=== PATIENT | female | born 1960 | race Hispanic/Latino ===

== ENCOUNTER 2018-09-12 14:03 | Inpatient (IN) | payer BC, OTHER ==
--- OUTSIDE RECORDS SUMMARY | 2018-09-12 14:32 | XMS REPORT | Continuity of Care Document ---
:1960 Author Organization [employer] Care Team Providers Name Role Phone [employer] Unavailable Unavailable Problems Problem Status Onset Classification Date Comments Source Date Reported DYSPAREUNIA Active 03/27/19 Condition 04/09/2013 Medical 14 Group ROUTINE Inactive 10/26/19 Condition 04/09/2013 Medical GYNECOLOGICAL 13 Group EXAMINATION SCREENING, COLON Inactive 10/26/19 Condition 04/09/2013 Medical CANCER 13 Group OTHER SCREENING Inactive 10/26/19 Condition 04/09/2013 Medical MAMMOGRAM 13 Group PHYSICAL Inactive 10/26/19 Condition 04/09/2013 Medical EXAMINATION 13 Group PSORIASIS Active 02/06/20 Condition 04/09/2013 Medical 12 Group VITAMIN D Active Condition 04/09/2013 Medical DEFICIENCY Group DIABETES Active Condition 04/09/2013 Medical MELLITUS, TYPE I, Group ADULT ONSET ESSENTIAL Active Condition 04/09/2013 Medical HYPERTENSION Group URINARY TRACT Active Condition 04/09/2013 Medical INFECTION Group Medications Medication Details Route Status Patient Ordering Order Source Instructions Provider Date CIPRO 500 MG Take one Active TABS (1) by 014 Medical mouth twice Group a day FLAGYL 250 MG Take 1 No Longer MH TABS tablet po Active 013 Medical TID with Group food for 7 days BETAMETHASONE Apply to Active DIPROPIONATE affected 013 Medical 0.05 % OINT area BID Group prn OXYBUTYNIN 1 tablet po Active CHLORIDE ER 10 q day 012 Medical MG [id number] Group VITAMIN D3 31427 Take 1 Active MH UNIT CAPS capsule po 012 Medical q wk Group CIPRO 500 MG Take 1 No Longer MH TABS tablet po Active 012 Medical BID. Group MACROBID 100 MG one by No Longer MH CAPS mouth twice Active 012 Medical daily with Group food for 7 days VITAMIN D2 one by No Longer 50,000 CAPSULES mouth Active 012 Medical weekly Group METFORMIN HCL 1 tablet po Active 500 MG TABS BID Medical Group LISINOPRIL-HYDRO 1 tablet po Active CHLOROTHIAZIDE q day Medical 10-12.5 MG TABS Group Allergies, Adverse Reactions, Alerts Substance Category Reaction Severity Reaction Status Date Comments Source type Reported PENICILLINS Drug PENICILLINS allergy Medical Group Immunizations Immunization Date Given Site Status Last Updated Comments Source dT (Diphtheria 11/10/2011 completed Medical and Tetanus) Group booster given dT (Diphtheria 10/31/2011 completed Medical and Tetanus) Group booster given Results Order Name Results Value Reference Date Interpretation Comments Source Range Chemistry CHOLESTEROL 169 125 - 200 11/05 Medical Group Chemistry HDL 55 >=46 11/05 Medical Group Chemistry TRIGLYCERIDE 89 - 150 11/05 Medical Group Chemistry LDL 96 MG/DL - 130 11/05 (CALC) /2012 Medical Group Chemistry BUN 12 7 - 25 11/05 Medical Group Chemistry CREATININE 0.56 0.50 - 11/05 1.05 Medical Group Chemistry BUN/CREAT NOT 6 - 22 11/05 Medical (calc) Group Chemistry SODIUM 141 135 - 146 11/05 Medical Group Chemistry POTASSIUM 4.4 3.5 - 5.3 11/05 Medical Group Chemistry CALCIUM 9.1 8.6 - 10.4 11/05 Medical Group Chemistry ALBUMIN 4.2 3.6 - 5.1 11/05 Medical Group Chemistry ALK PHOS 57 33 - 130 11/05 Medical Group Chemistry SGOT (AST) 16 10 - 35 11/05 Medical Group Chemistry SGPT (ALT) 16 6 - 29 11/05 Medical Group Chemistry HGBA1C 5.6 % OF - 5.7 11/05 TOTAL HGB /2012 Medical Group Chemistry TSH 1.09 11/05 Medical Group Chemistry T4, FREE 1.2 0.8 - 1.8 11/05 Medical Group Hematology HGB 13.9 11.7 - 11/05 15.5 /2012 Medical Group Hematology HCT 41.8 35.0 - 11/05 45.0 /2012 Medical Group Hematology PLATELETS 225 140 - 400 11/05 THOUSAND/UL /2012 Medical Group Urinalysis MICROALB URN 11 11/05 Medical Group Urinalysis UA COLOR DARK YELLOW 11/05 Medical [facility] Urinalysis EPI CELL UR 0-5 - 5 11/05 Medical [facility] Urinalysis BACTERIA URN MANY 11/05 Medical [facility] Urinalysis URINE ROSS MODERATE 11/05 Medical [facility] 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 CLINICAL INDICATION: 625.0 DYSPAREUNIA Comparison Examination: None TECHNIQUE: A real-time transabdominal and transvaginal sonographic evaluation of the pelvis was performed. The ovaries and adnexa were not well seen on the transabdominal study and transvaginal assessment was therefore warranted. FINDINGS: The transabdominal images reveal a normal bladder. The uterus is absent. The ovaries are not visualized. There are no masses or fluid collections identified within the pelvis. There are no adnexal lesions. No free fluid is identified. IMPRESSION: Post hysterectomy. Ovaries not visualized and likely surgically absent. No adnexal masses or free fluid. Consultation Notes No Data Provided for This Section Discharge Summaries No Data Provided for This Section History and Physicals No Data Provided for This Section Vital Signs Vital Sign Value Date Comments Source Temperature Oral (F) 96.1 F 03/27/2013 Medical Group Weight 218 03/27/2013 Medical Group Respitory Rate 16 03/27/2013 Medical Group Heart Rate 68 03/27/2013 Medical Group Systolic (mm Hg) 119 03/27/2013 Medical Group Diastolic (mm Hg) 57 03/27/2013 Medical Group Respitory Rate 12 10/25/2012 Medical Group Weight 219 10/25/2012 Medical Group Height 63 10/25/2012 Medical Group Heart Rate 68 10/25/2012 Medical Group Systolic (mm Hg) 119 10/25/2012 Medical Group Diastolic (mm Hg) 85 10/25/2012 Medical Group Temperature Oral (F) 95.7 F 10/25/2012 Medical Group Encounters Location Location Encounter Encounter Reason Attending ADM DC Status Source Details Type Number For Provider Date Date Visit [facility] [id number] Ashley 03/27 03/27 Ciaran Visit 000 MD [place]j /2013 Medical Medical [facility] Lab Report [id number] Ashley 03/27 03/27 Ciaran Sole MD Nj /2013 Medical Medical [facility] Lab Report [id number] Ashley 04/01 04/01 Ciaran Ember MD Nj /2013 Medical Medical [facility] Lab Report [id number] Ashley 04/02 04/02 Ciaran Sole MD Nj /2013 Medical [facility] Lab Report [id number] Ashley 04/03 04/03 Ciaran Mauro MD /2013 Medical [facility] Lab Report [id number] Ashley 04/04 04/04 Ciaran Mauro MD /2013 Medical Medical [facility] Lab Report [id number] Ashley 04/07 04/07 Ciaran 960 MD Nj /2013 Medical Medical [facility] Lab Report [id number] Ashley 04/08 04/08 Ciaran Mauro MD Medical [facility] Lab Report [id number] Ashley 04/09 04/09 Ciaran Mauro MD /2013 Medical [facility] Procedures Procedure Code Date Perfomer Comments Source mammogram 78623 11/11/2012 Completed at [facility] mammogram 67018 11/10/2011 Completed at [facility] vaginal Pap smear 31695 10/31/2011 Done Medical results Group Assessment and Plan No Data Provided for This Section Plan of Care No Data Provided for This Section Social History No Data Provided for This Section Family History No Data Provided for This Section Advance Directives No Data Provided for This Section Functional Status No Data Provided for This Section
--- OUTSIDE RECORDS SUMMARY | 2018-09-12 14:32 | XMS REPORT | Continuity of Care Document ---
:1960 Author Organization [facility] Care Team Providers Name Role Phone MD Mauro Lillian Unavailable Unavailable Insurance Providers Payer name Policy type / Policy ID Covered alliance party ID Policy Pruitt Coverage type [facility] [employer] [facility] Encounters Encounter Performer Location Date Office Visit Ashley Mauro MD [facility] [place] Mar 27, 2013 Family Practice Allergies, Adverse Reactions, Alerts Type Substance Reaction Status Drug allergy PENICILLINS Active Problems Problem Effective Dates Problem Status VITAMIN D DEFICIENCY Active PSORIASIS Feb 06, 2012 Active DIABETES MELLITUS, TYPE I, ADULT ONSET Active ESSENTIAL HYPERTENSION Active URINARY TRACT INFECTION Active ROUTINE GYNECOLOGICAL EXAMINATION Oct 25, 2012 Inactive SCREENING, COLON CANCER Oct 25, 2012 Inactive OTHER SCREENING MAMMOGRAM Oct 25, 2012 Inactive PHYSICAL EXAMINATION Oct 25, 2012 Inactive DYSPAREUNIA Mar 27, 2013 Active Procedures Date Description Comments Nov 10, 2011 mammogram Completed at [facility] Oct 31, 2011 vaginal Pap smear results Done Oct 25, 2012 smoking status never smoker Nov 11, 2012 mammogram Completed at [facility] Medications Medication Instructions Start Date Status VITAMIN D3 07210 UNIT CAPS Take 1 capsule po q wk Jan 01, 2012 Active METFORMIN HCL 500 MG TABS 1 tablet po BID Active OXYBUTYNIN CHLORIDE ER 10 MG 1 tablet po q day Jan 17, 2012 Active [id number] LISINOPRIL-HYDROCHLOROTHIAZIDE 1 tablet po q day Active 10-12.5 MG TABS MACROBID 100 MG CAPS one by mouth twice daily with Oct 31, 2011 Inactive food for 7 days VITAMIN D2 50,000 CAPSULES one by mouth weekly Jun 15, 2011 Inactive CIPRO 500 MG TABS Take 1 tablet po BID. Nov 15, 2011 Inactive BETAMETHASONE DIPROPIONATE 0.05 Apply to affected area BID prn Oct 25, 2012 Active % OINT FLAGYL 250 MG TABS Take 1 tablet po TID with food Oct 28, 2012 Inactive for 7 days CIPRO 500 MG TABS Take one (1) by mouth twice a Mar 27, 2013 Active day Immunizations Vaccine Date Status dT (Diphtheria and Tetanus) booster given Nov 10, 2011 completed dT (Diphtheria and Tetanus) booster given Oct 31, 2011 completed Vital Signs Date Description Test Result Oct 25, 2012 respiratory rate E&M - 9279-1 RESP RATE 12 /min Oct 25, 2012 weight E&M - 3141-9 WEIGHT 219 lb Oct 25, 2012 height E&M - 8302-2 HEIGHT 63 in Oct 25, 2012 pulse rate E&M - 8867-4 PULSE RATE 68 /min Oct 25, 2012 blood pressure, systolic - 8480-6 BP SYSTOLIC 119 mm Hg Oct 25, 2012 blood pressure, diastolic - 8462-4 BP DIASTOLIC 85 mm Hg Oct 25, 2012 temperature E&M TEMPERATURE 95.7 deg f Mar 27, 2013 temperature E&M TEMPERATURE 96.1 deg f Mar 27, 2013 weight E&M - 3141-9 WEIGHT 218 lb Mar 27, 2013 respiratory rate E&M - 9279-1 RESP RATE 16 /min Mar 27, 2013 pulse rate E&M - 8867-4 PULSE RATE 68 /min Mar 27, 2013 blood pressure, systolic - 8480-6 BP SYSTOLIC 119 mm Hg Mar 27, 2013 blood pressure, diastolic - 8462-4 BP DIASTOLIC 57 mm Hg Results Date Description Test Name Value Reference Interpretation Status Nov 04, hemoglobin, blood HGB 13.9 g/dL 11.7-15.5 Normal 2012Nov 04, hematocrit, blood HCT 41.8 % 35.0-45.0 Normal 2012Nov 04, platelet count PLATELETS 225 140-400 Normal 2012 THOUSAND/UL /mm3 Nov 04, cholesterol, serum CHOLESTEROL 169 mg/dl 125-200 Normal 2012Nov 04, HDL cholesterol, HDL 55 mg/dl > OR=46 Normal 2012 serum Nov 04, triglyceride, TRIGLYCERIDE 89 mg/dl <150 Normal 2012 serum, fasting Nov 04, LDL cholesterol, LDL 96 MG/DL <130 Normal 2012 serum (CALC) mg/dl Nov 04, urea nitrogen, BUN 12 mg/dL 7-25 Normal 2012 blood Nov 04, creatinine, serum CREATININE 0.56 mg/dL 0.50-1.05 Normal 2012Nov 04, urea BUN/CREAT NOT 6-22 2012 nitrogen/creatinine APPLICABLE ratio, serum (calc) null Nov 04, sodium, serum SODIUM 141 mmol/L 135-146 Normal 2012Nov 04, potassium, serum POTASSIUM 4.4 mmol/L 3.5-5.3 Normal 2012Nov 04, calcium, serum CALCIUM 9.1 mg/dL 8.6-10.4 Normal 2012Nov 04, albumin, serum ALBUMIN 4.2 g/dL 3.6-5.1 Normal 2012Nov 04, alkaline ALK PHOS 57 U/L 33-130 Normal 2012 phosphatase, serum Nov 04, aspartate SGOT (AST) 16 U/L 10-35 Normal 2012 aminotransferase (SGOT), serum Nov 04, alanine SGPT (ALT) 16 U/L 6-29 Normal 2012 aminotransferase (SGPT), serum Nov 04, hemoglobin A1C, HGBA1C 5.6 % OF <5.7 Normal 2012 blood, as % of TOTAL HGB % total hemoglobin Nov 04, thyroid stimulating TSH 1.09 uIU/mL Normal 2012 hormone, serum Nov 04, thyroxine, serum, T4, FREE 1.2 ng/dl 0.8-1.8 Normal 2012 free Nov 04, microalbumin/total MICROALB URN 11 mg/l Units Normal 2012 urine volume converted. See lab report for original value. Nov 04, urine color UA COLOR DARK YELLOW YELLOW Normal 2012 null Nov 04, epithelial cells, EPI CELL UR 0-5 /lpf < OR=5 2012 urine Nov 04, bacteria, urine BACTERIA URN MANY null NONE SEEN Abnormal 2012 microscopy Nov 04, urine crystals, URINE ROSS MODERATE /HPF NONE OR FEW Abnormal 2012 microscopic null Oct 30, vaginal Pap smear PAP SMEAR Done null 2011 results
--- OUTSIDE RECORDS SUMMARY | 2018-09-12 14:32 | XMS REPORT | Continuity of Care Document ---
:1960 Author Organization [facility] Care Team Providers Name Role Phone MD Mauro Lillian Unavailable Unavailable Insurance Providers Payer name Policy type / Policy ID Covered alliance party ID Policy Pruitt Coverage type [facility] - [facility] Encounters Encounter Performer Location Date Lab Report Ashley Mauro MD [facility] - Apr 04, 2013 [place] Allergies, Adverse Reactions, Alerts Type Substance Reaction [...] Comments Nov 10, 2011 mammogram Completed at [facility] Oct 31, 2011 vaginal Pap smear results Done Oct 25, 2012 smoking status never smoker Nov 11, 2012 mammogram Completed at [facility] Medications Medication Instructions Start Date Status VITAMIN D3 85876 UNIT CAPS Take 1 capsule po q wk Jan 01, 2012 Active METFORMIN HCL 500 MG TABS 1 tablet po BID Active OXYBUTYNIN CHLORIDE ER 10 MG 1 tablet po q day Jan 17, 2012 Active [id number] LISINOPRIL-HYDROCHLOROTHIAZIDE 1 tablet po q day Active [...]
--- OUTSIDE RECORDS SUMMARY | 2018-09-12 14:32 | XMS REPORT | Continuity of Care Document ---
:1960 Author Organization [facility] Care Team Providers Name Role Phone MD Mauro Lillian Unavailable Unavailable Insurance Providers Payer name Policy type / Policy ID Covered green party ID Policy Pruitt Coverage type [facility]ALTH - [facility] Encounters Encounter Performer Location Date Lab Report Ashley Mauro MD [facility] - Apr 01, 2013 [place] Allergies, Adverse Reactions, Alerts Type Substance Reaction [...] Comments Nov 10, 2011 mammogram Completed at [facility] Oct 31, 2011 vaginal Pap smear results Done Oct 25, 2012 smoking status never smoker Nov 11, 2012 mammogram Completed at [facility] Medications Medication Instructions Start Date Status VITAMIN D3 44179 UNIT CAPS Take 1 capsule po q wk Jan 01, 2012 Active METFORMIN HCL 500 MG TABS 1 tablet po BID Active OXYBUTYNIN CHLORIDE ER 10 MG 1 tablet po q day Jan 17, 2012 Active [id number] LISINOPRIL-HYDROCHLOROTHIAZIDE 1 tablet po q day Active [...]
--- OUTSIDE RECORDS SUMMARY | 2018-09-12 14:33 | XMS REPORT | Continuity of Care Document ---
:1960 Author Organization [facility] Care Team Providers Name Role Phone MD Mauro Lillian Unavailable Unavailable Insurance Providers Payer name Policy type / Policy ID Covered democrat ID Policy Pruitt Coverage type [facility]ALTH - [facility] Encounters Encounter Performer Location Date Lab Report Ashley Mauro MD [facility] - Apr 03, 2013 [place] Allergies, Adverse Reactions, Alerts Type Substance Reaction [...] Comments Nov 10, 2011 mammogram Completed at [facility] Oct 31, 2011 vaginal Pap smear results Done Oct 25, 2012 smoking status never smoker Nov 11, 2012 mammogram Completed at [facility] Medications Medication Instructions Start Date Status VITAMIN D3 71585 UNIT CAPS Take 1 capsule po q wk Jan 01, 2012 Active METFORMIN HCL 500 MG TABS 1 tablet po BID Active OXYBUTYNIN CHLORIDE ER 10 MG 1 tablet po q day Jan 17, 2012 Active [id number] LISINOPRIL-HYDROCHLOROTHIAZIDE 1 tablet po q day Active [...]
--- OUTSIDE RECORDS SUMMARY | 2018-09-12 14:33 | XMS REPORT | Continuity of Care Document ---
:1960 Author Organization [facility] Care Team Providers Name Role Phone MD Mauro Lillian Unavailable Unavailable Insurance Providers Payer name Policy type / Policy ID Covered democrat ID Policy Pruitt Coverage type [facility] - [facility] Encounters Encounter Performer Location Date Lab Report Ashley Mauro MD [facility] - Apr 08, 2013 [place] Allergies, Adverse Reactions, Alerts Type Substance Reaction [...] Comments Nov 10, 2011 mammogram Completed at [facility] Oct 31, 2011 vaginal Pap smear results Done Oct 25, 2012 smoking status never smoker Nov 11, 2012 mammogram Completed at [facility] Medications Medication Instructions Start Date Status VITAMIN D3 24697 UNIT CAPS Take 1 capsule po q wk Jan 01, 2012 Active METFORMIN HCL 500 MG TABS 1 tablet po BID Active OXYBUTYNIN CHLORIDE ER 10 MG 1 tablet po q day Jan 17, 2012 Active [id number] LISINOPRIL-HYDROCHLOROTHIAZIDE 1 tablet po q day Active [...]
--- OUTSIDE RECORDS SUMMARY | 2018-09-12 14:33 | XMS REPORT | Continuity of Care Document ---
:1960 Author Organization [facility] Care Team Providers Name Role Phone MD Mauro Lillian Unavailable Unavailable Insurance Providers Payer name Policy type / Policy ID Covered libertarian ID Policy Pruitt Coverage type [facility] - [facility] [employer] [facility] Encounters Encounter Performer Location Date Lab Report Ashley Mauro MD [facility] - Mar 27, 2013 [place] Allergies, Adverse Reactions, Alerts Type Substance Reaction [...] Comments Nov 10, 2011 mammogram Completed at [facility] Oct 31, 2011 vaginal Pap smear results Done Oct 25, 2012 smoking status never smoker Nov 11, 2012 mammogram Completed at [facility] Medications Medication Instructions Start Date Status VITAMIN D3 93695 UNIT CAPS Take 1 capsule po q wk Jan 01, 2012 Active METFORMIN HCL 500 MG TABS 1 tablet po BID Active OXYBUTYNIN CHLORIDE ER 10 MG 1 tablet po q day Jan 17, 2012 Active [id number] LISINOPRIL-HYDROCHLOROTHIAZIDE 1 tablet po q day Active [...]
--- OUTSIDE RECORDS SUMMARY | 2018-09-12 14:33 | XMS REPORT | Continuity of Care Document ---
:1960 Author Organization [facility] Care Team Providers Name Role Phone MD Mauro Lillian Unavailable Unavailable Insurance Providers Payer name Policy type / Policy ID Covered republican ID Policy Pruitt Coverage type [facility]ALTH - [facility] Encounters Encounter Performer Location Date Lab Report Ashley Mauro MD [facility] - Apr 07, 2013 [place] Allergies, Adverse Reactions, Alerts Type Substance Reaction [...] Comments Nov 10, 2011 mammogram Completed at [facility] Oct 31, 2011 vaginal Pap smear results Done Oct 25, 2012 smoking status never smoker Nov 11, 2012 mammogram Completed at [facility] Medications Medication Instructions Start Date Status VITAMIN D3 37743 UNIT CAPS Take 1 capsule po q wk Jan 01, 2012 Active METFORMIN HCL 500 MG TABS 1 tablet po BID Active OXYBUTYNIN CHLORIDE ER 10 MG 1 tablet po q day Jan 17, 2012 Active [id number] LISINOPRIL-HYDROCHLOROTHIAZIDE 1 tablet po q day Active [...]
--- OUTSIDE RECORDS SUMMARY | 2018-09-12 14:33 | XMS REPORT | Continuity of Care Document ---
:[address] [facility] Care Team Providers Name Role Phone MD Mauro Lillian Unavailable Unavailable Insurance Providers Payer name Policy type / Policy ID Covered libertarian ID Policy Pruitt Coverage type [facility]ALTH - [facility] Encounters Encounter Performer Location Date Lab Report Ashley Mauro MD [facility] - Apr 09, 2013 [place] Allergies, Adverse Reactions, Alerts Type Substance Reaction [...] Comments Nov 10, 2011 mammogram Completed at [facility] Oct 31, 2011 vaginal Pap smear results Done Oct 25, 2012 smoking status never smoker Nov 11, 2012 mammogram Completed at [facility] Medications Medication Instructions Start Date Status VITAMIN D3 90095 UNIT CAPS Take 1 capsule po q wk Jan 01, 2012 Active METFORMIN HCL 500 MG TABS 1 tablet po BID Active OXYBUTYNIN CHLORIDE ER 10 MG 1 tablet po q day Jan 17, 2012 Active [id number] LISINOPRIL-HYDROCHLOROTHIAZIDE 1 tablet po q day Active [...]
--- OUTSIDE RECORDS SUMMARY | 2018-09-12 14:33 | XMS REPORT | Continuity of Care Document ---
:1960 Author Organization [facility] Care Team Providers Name Role Phone MD Mauro Lillian Unavailable Unavailable Insurance Providers Payer name Policy type / Policy ID Covered republican ID Policy Pruitt Coverage type EAL - [facility] [email or web address] [facility] Encounters Encounter Performer Location Date Lab Report Ashley Mauro MD [facility] - Apr 02, 2013 [place] Allergies, Adverse Reactions, Alerts Type Substance Reaction [...] Comments Nov 10, 2011 mammogram Completed at [facility] Oct 31, 2011 vaginal Pap smear results Done Oct 25, 2012 smoking status never smoker Nov 11, 2012 mammogram Completed at [facility] Medications Medication Instructions Start Date Status VITAMIN D3 85997 UNIT CAPS Take 1 capsule po q wk Jan 01, 2012 Active METFORMIN HCL 500 MG TABS 1 tablet po BID Active OXYBUTYNIN CHLORIDE ER 10 MG 1 tablet po q day Jan 17, 2012 Active [id number] LISINOPRIL-HYDROCHLOROTHIAZIDE 1 tablet po q day Active [...]
--- OUTSIDE RECORDS SUMMARY | 2018-09-12 14:33 | XMS REPORT | Summary of Care ---
:1960 Author Name AGUS WILSON M.D. 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) Status: Active History of laparoscopic adjustable gastric banding (V45.86, Z98.84) Status: Active Medications Name Dates Details Medications not documented Allergies and Adverse Reactions Name Dates Details Allergy history not documented Status: Procedures Procedure Dates Details [B] VITAMIN B12 Date: 28-Nov-2017 [H] Vit A Date: 28-Nov-2017 [H] Vitamin E Lvl Date: 28-Nov-2017 [LH] TSH+Free T4 Date: 28-Nov-2017 [QLH] CBC (INCLUDES DIFF/PLT) Date: 28-Nov-2017 [QLH] CMP W/EGFR Date: 28-Nov-2017 [QLH] FOLATE, SERUM Date: 28-Nov-2017 [QLH] HEMOGLOBIN A1c Date: 28-Nov-2017 [QLH] IRON, TOTAL Date: 28-Nov-2017 [QLH] LIPID PANEL Date: 28-Nov-2017 [QLH] PTH, INTACT (WITHOUT CALCIUM) Date: 28-Nov-2017 [QLH] VITAMIN B1, WHOLE BLOOD Date: 28-Nov-2017 [QLH] VITAMIN D, 25-HYDROXY, LC/MS/MS Date: 28-Nov-2017 Immunization Name Dates Details Immunizations not documented Social History Name Dates Details Unknown if ever smoked Vital Signs Date Test Result Details No Known Vitals to report Results Date Description Value Details [id number] GI Stomach UGI (barium) 88220 Stomach UGI (barium) SEE NOTES Comments: EXAM: FLUOROSCOPY BARIUM UPPER GI DOUBLE CONTRASTDATE: 12/07/2017 10:04 AM CDTINDICATION: - GERDADDITIONAL INFORMATION: None.COMPARISON: None.TECHNIQUE: Upper GI was performed using double contrast chad hnique orally. FLUOROSCOPY TIME: 1 minute 11 secondsDISCUSSION: Preliminary radiograph: Normal.Swallowing: Normal.Esophagus:Motility: Normal.Anatomy: No filling defects, mucosal irregularities, obstruc tions or extrinsiccompressions identified.Hiatal hernia: None.Gastroesophageal reflux: Reflux contrast was present with contrast seenrefluxing into the midportion of the esophagus.Stomach: Normal.Duode num: Normal.IMPRESSION:1. Study positive for gastroesophageal reflux2. No paraesophageal or hiatal hernia appreciated.3. No other abnormality visualized on study--This report was dictated by a Radio logy Resident/Fellow. I have personallyreviewed the images aswell as the Resident's interpretation and agree with the findings.Read by: Stanislaw Cline Resident: Nicholas ClineDictated Date/time: 12/07/17 13:48Electronically Signed by : Parish Cunha MD 12/08/1815:54FINAL REPORT Plan of Care Name Dates Details Planned Observations Planned Goals not documented Instructions Name Dates Details Instructions not documented Encounters Appointment; AGUS WILSON M.D. On: 30-Aug-2016 9:30 Encounter Diagnosis: Problem not documented Appointment; AGUS WILSON M.D. On: 11-Oct-2016 10:45 Encounter Diagnosis: Problem not documented Appointment; ANGELES REBOLLEDO RD On: 19-Oct-2016 14:30 Encounter Diagnosis: Problem not documented Appointment; ANGELES REBOLLEDO RD On: 20-Nov-2016 14:00 Encounter Diagnosis: Problem not documented Appointment; ANGELES REBOLLEDO RD On: 15-Dec-2016 12:00 Encounter Diagnosis: Problem not documented Appointment; ANGELES REBOLLEDO RD On: 25-Dec-2016 15:30 Encounter Diagnosis: Problem not documented Appointment; AGUS WILSON M.D. On: 14-Feb-2017 10:45 Encounter Diagnosis: Problem not documented Appointment; AGUS WILSON M.D. On: 21-Mar-2017 10:00 Encounter Diagnosis: Problem not documented Appointment; MICHAELA BONILLA NP On: 02-Aug-2017 10:30 Encounter Diagnosis: Problem not documented Appointment; MICHAELA BONILLA NP On: 05-Sep-2017 13:00 Encounter Diagnosis: Problem not documented Appointment; MICHAELA BONILLA NP On: 07-Sep-2017 11:00 Encounter Diagnosis: Problem not documented Appointment; MICHAELA BONILLA NP On: 09-Oct-2017 12:45 Encounter Diagnosis: Problem not documented Appointment; AGUS WILSON M.D. On: 28-Nov-2017 10:30 Encounter Diagnosis: Problem not documented
[2018-09-12] MEDS ORDERED: ACETAMINOPHEN 325 MG TABLET ONE (15:08)
[2018-09-12] MEDS ORDERED: NA CHLORIDE 0.9% 1,000 ML ONE ×2 (15:08→16:50)
[2018-09-12] MEDS ORDERED: ONDANSETRON 4 MG/2 ML VIAL ONE (15:08)
[2018-09-12] MEDS ORDERED: MORPHINE 4 MG/ML SYR ONE (15:08)
[2018-09-12 15:18] LABS: Absolute Lymphocytes (CBC) 1.3 K/uL (0.7-4.9); Basophils % 0.6 % (0-1.3); Hematocrit 42.8 % (36.0-45.0); Lymphocytes % 12.3 % (15.3-44.8); MPV 9.6 fL (7.6-11.3); RBC Red Blood Cell Count 4.92 M/uL (3.86-4.86)
[2018-09-12 15:24] LABS: ALT/SGPT 23 U/L (12-78); AST/SGOT 17 U/L (15-37); Albumin 3.5 g/dL (3.4-5.0); Alkaline Phosphatase 91 U/L (45-117); BUN Blood Urea Nitrogen 9 mg/dL (7-18); Bicarbonate 25 mmol/L (21-32); Bilirubin Direct 0.2 mg/dL (0-0.2); Bilirubin Total 0.5 mg/dL (0.2-1.0); Glucose Level 110 mg/dL (74-106); Lipase 377 U/L (73-393); Potassium 3.7 mmol/L (3.5-5.1); Protein, Total 7.3 g/dL (6.4-8.2); Sodium Level 141 mmol/L (136-145)
[2018-09-12 15:52] LABS: Urine Blood NEGATIVE (NEG); Urine Glucose NEGATIVE (NEG); Urine Protein 1+ (NEG)
--- NOTE | 2018-09-12 16:16 | RAD REPORT ---
EXAM DESCRIPTION: CT - Abdomen Pelvis W Contrast - 09/12/2018 3:36 pm CLINICAL HISTORY: Abdominal pain with nausea. COMPARISON: 2017 TECHNIQUE: Computed axial tomography of the abdomen pelvis was obtained. 100 cc Isovue-300 was admin istered intravenously. Oral contrast was not requested which limits evaluation of bowel. All CT scans are performed using dose optimization technique as appropriate and may include automated exposure control or mA/KV adjustment according to patient size. FINDINGS: The pancreas is enlarged. Mild to moderate stranding within the peripancreatic fat. No pse udocysts. Cholecystectomy Gastric band in place Liver, spleen, adrenals and left kidney are unremarkable Tiny angiomyolipoma right kidney There is no evidence of diverticulitis. 5 centimeter complex cystic mass right adnexa unchanged from the prior exam Hysterectomy Air within the bladder . Tubal ligation clips in place IMPRESSION: Mild to moderate pancreatitis 5 centimeter complex cystic mass right adnexa stable from 2017 may represent an ovarian cystadenoma o r a benign complex ovarian cyst Air within the bladder could be related to recent instrumentation or infection
[2018-09-12] MEDS ORDERED: CIPROFLOXACIN HCL 500 MG TAB ONE (16:50)
[2018-09-12] MEDS ORDERED: FENTANYL CITR 100 MCG/2 ML ONE ×2 (17:02→20:32)
--- NOTE | 2018-09-12 18:53 | RAD REPORT ---
EXAM DESCRIPTION: US - Transvaginal Study Probe - 09/12/2018 6:29 pm CLINICAL HISTORY: Ovarian mass COMPARISON: September 12, 2018 FINDINGS: Hysterectomy Complex cystic right adnexal mass measures approximately 5 centimeters. It contains septations. Blood flow seen within the periphery. The left ovary was not visualized. Left adnexal mass is not noted. No free fluid IMPRESSION: 5 centimeter complex right ovarian cystic mass may represent benign complex ovarian cyst or cystadenoma
--- NOTE | 2018-09-12 18:56 | RAD REPORT ---
EXAM DESCRIPTION: US - Liver Only - 09/12/2018 6:29 pm CLINICAL HISTORY: Abdominal pain/ COMPARISON: CT September 12, 2018 FINDINGS: The liver has a normal echotexture. The pancreas is enlarged. A pseudocyst is not seen. Pancreatic duct is not dilated. . Cholecystectomy. Normal biliary tree Spleen measures 11 centimeters IMPRESSION: Pancreatitis
--- NOTE | 2018-09-12 19:31 | ER ---
Nurse's Notes [facility] Name: Heather Martinez Age: 57 yrs Sex: Female : 1960 Arrival Date: 09/12/2018 Time: 14:04 Bed 2 Private MD: Diagnosis: Acute pancreatitis Presentation: 09/12 14:12 Presenting complaint: N/V/D,fever, and upper abdominal pain that radiates to left mid hb back, x 3 days. Transition of care: patient was not received from another setting of care. Onset of symptoms was September 09, 2018. Risk Assessment: Do you want to hurt yourself or someone else? Patient reports no desire to harm self or others. Care prior to arrival: None. 14:12 Method Of Arrival: Ambulatory hb 14:12 Acuity: CYN 3 hb 14:30 Initial Sepsis Screen: Does the patient meet any 2 criteria? No. Patient's initial aa5 sepsis screen is negative. Does the patient have a suspected source of infection? No. Patient's initial sepsis screen is negative. 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 - Social history:: Smoking status: Patient/guardian denies using tobacco. - Ebola Screening: : No symptoms or risks identified at this time. Screenin:30 Abuse screen: Denies threats or abuse. Nutritional screening: No deficits noted. aa5 Tuberculosis screening: No symptoms or risk factors identified. Fall Risk None identified. Assessment: 14:30 General: Appears uncomfortable, Behavior is calm, cooperative. Pain: Complains of pain aa5 in right upper quadrant and left upper quadrant Pain radiates to left mid back Pain currently is 10 out of 10 on a pain scale. Quality of pain is described as sharp, Pain began 2-3 days ago. Is continuous. Neuro: Level of Consciousness is awake, alert, obeys commands, Oriented to person, place, time, situation. Cardiovascular: Heart tones S1 S2 present Rhythm is regular. Respiratory: Airway is patent Respiratory effort is even, unlabored, Respiratory pattern is regular, symmetrical, Breath sounds are clear bilaterally. GI: Abdomen is round non-distended, Bowel sounds present X 4 quads. Abd is soft and non tender X 4 quads. Reports diarrhea, nausea, vomiting. : No signs and/or symptoms were reported regarding the genitourinary system. EENT: No signs and/or symptoms were reported regarding the EENT system. Derm: Skin is pink, warm \T\ dry. Musculoskeletal: Range of motion: intact in all extremities. 15:30 Reassessment: Patient is alert, oriented x 3, equal unlabored respirations, skin aa5 warm/dry/pink. Patient states feeling better. Pt taken to CT scan via stretcher . Pain: Pain currently is 8 out of 10 on a pain scale. 16:35 Reassessment: Patient is alert, oriented x 3, equal unlabored respirations, skin aa5 warm/dry/pink. Pt lying down in bed. Pt states she does not need pain medication at this time. . 16:37 Reassessment: KORIN Reynolds at bedside discussing CT and lab results with patient. . aa5 16:50 Reassessment: Pt now resting in bed with eyes closed, respirations equal and unlabored. aa5 . 17:45 Reassessment: Patient is alert, oriented x 3, equal unlabored respirations, skin aa5 warm/dry/pink. Patient states feeling better. Pain: Pain currently is 0 out of 10 on a pain scale. 18:13 Reassessment: Pt at US . aa5 19:22 Reassessment: Patient appears in no apparent distress at this time. Patient and/or aa1 family updated on plan of care and expected duration. Pain level reassessed. Patient is alert, oriented x 3, equal unlabored respirations, skin warm/dry/pink. Pt awaiting provider reassessment. Family at bedside. 20:31 Reassessment: Patient appears in no apparent distress at this time. Patient and/or tr5 family updated on plan of care and expected duration. Pain level reassessed. Patient is alert, oriented x 3, equal unlabored respirations, skin warm/dry/pink. 22:10 Reassessment: Patient appears in no apparent distress at this time. Patient and/or aa1 family updated on plan of care and expected duration. Pain level reassessed. Patient is alert, oriented x 3, equal unlabored respirations, skin warm/dry/pink. Report given to Genesis Menard RN on 2nd floor. Asked to hold pt for 15-20 mins prior to bringing upstairs since nurse just received another pt. Vital Signs: 14:14 BP 121 / 77; Pulse 105; Resp 16; Temp 99.2; Pulse Ox 98% on R/A; Weight 108.86 kg; hb Height 5 ft. 2 in. (157.48 cm); Pain 8/10; 15:15 BP 116 / 69; Pulse 73; Resp 16 S; Pulse Ox 96% on R/A; aa5 16:41 Temp 98.1(O); aa5 16:49 BP 104 / 65; Pulse 74; Resp 16 S; Pulse Ox 100% on R/A; Pain 8/10; aa5 19:22 BP 110 / 70; Pulse 68; Resp 18; Temp 98.4; Pulse Ox 97% on R/A; Pain 0/10; aa1 20:30 BP 100 / 61; Pulse 72; Resp 16; Pulse Ox 95% on R/A; aa1 21:30 BP 101 / 53; Pulse 67; Resp 18; Pulse Ox 95% on R/A; Pain 6/10; aa1 22:07 BP 105 / 61; Pulse 69; Resp 16; Temp 97.9(O); Pulse Ox 97% on R/A; Pain 0/10; aa1 14:14 Body Mass Index 43.90 (108.86 kg, 157.48 cm) hb ED Course: 14:04 Patient arrived in ED. as 14:14 Triage completed. hb 14:17 Arm band placed on right wrist. hb 14:18 Sheree Vargas, RN is Primary Nurse. aa5 14:30 Patient has correct armband on for positive identification. Placed in gown. Bed in low aa5 position. Call light in reach. Side rails up X2. 14:30 Pulse ox on. NIBP on. aa5 14:42 Julian King PA is PHCP. [facility] 14:42 Rodríguez Edwards MD is Attending Physician. [facility] 14:50 Initial lab(s) drawn, by me, sent to lab. Inserted saline lock: 22 gauge in right aa5 forearm, using aseptic technique. Blood collected. 14:50 No provider procedures requiring assistance completed. Patient maintains SpO2 aa5 saturation greater than 95% on room air. 15:24 Radiology exam delayed due to lab results not completed at this time. (BUN/Creatinine). vm2 15:37 CT Abd/Pelvis - IV Contrast Only In Process Unspecified. EDMS 15:44 Urine collected: clean catch specimen, cloudy, sridhar colored. jb1 18:30 Liver Only In Process Unspecified. EDMS 18:30 Transvaginal Study Probe In Process Unspecified. EDMS 19:00 Report given to RACHEL Coleman. aa5 19:29 Miracle Sheehan MD is Hospitalizing Provider. jmm 22:35 Patient admitted, IV remains in place. tr5 Administered Medications: 15:00 Drug: NS 0.9% 1000 ml Route: IV; Rate: 1 bolus; Site: right forearm; aa5 16:30 Follow up: IV Status: Completed infusion; IV Intake: 1000ml aa5 15:00 Drug: Zofran 4 mg Route: IVP; Site: right forearm; aa5 15:10 Follow up: Response: No adverse reaction aa5 15:00 Drug: Tylenol 650 mg Route: PO; aa5 16:30 Follow up: Response: No adverse reaction aa5 15:01 Drug: morphine 4 mg Route: IVP; Site: right forearm; aa5 15:10 Follow up: Response: No adverse reaction aa5 16:35 Drug: NS 0.9% 1000 ml Route: IV; Rate: 1 bolus; Site: right forearm; aa5 16:35 Drug: Cipro 500 mg Route: PO; aa5 19:05 Follow up: Response: No adverse reaction aa1 16:49 Drug: fentaNYL (PF) 50 mcg Route: IVP; Site: right forearm; aa5 20:25 Drug: fentaNYL (PF) 25 mcg Route: IVP; Site: right antecubital; tr5 21:25 Follow up: Response: No adverse reaction; Pain is decreased aa1 Intake: 16:30 IV: 1000ml; Total: 1000ml. aa5 Outcome: 19:30 Decision to Hospitalize by Provider. jmm 22:35 Discharged to home ambulatory. tr5 22:35 Admitted to Med/surg accompanied by tech, via stretcher, with chart. 22:35 Condition: stable 22:35 Condition: stable 22:35 Discharge instructions given to 22:35 Instructed on the need for admit. 22:35 Patient left the ED. tr5 Signatures: Dispatcher [employer] Olvin Mosley jb1 Virginia Medellin, RN RN aa1 Julian King PA PA jmm Martinez, Amelia as Calderon, Audri, RN RN aa5 Tonya Berger RN RN hb McGuire, Victoria vm Enmanuel Mayer RN RN tr5
--- NOTE | 2018-09-12 19:32 | EDPHYS ---
Physician Documentation [facility] Name: Heather Martinez Age: 57 yrs Sex: Female : 1960 Arrival Date: 09/12/2018 Time: 14:04 Bed 2 Private MD: ED Physician Rodríguez Edwards HPI: 09/12 14:44 This 57 yrs old Female presents to ER via Ambulatory with complaints of Back jmm Pain, Abdominal Pain, Nausea/Vomiting/Diarrhea. 14:44 The patient presents with pain that is acute, with no known mechanism of injury. Onset: jmm The symptoms/episode began/occurred gradually, 3 day(s) ago. The pain radiates to the left mid back and abdomen and left upper quadrant. This is a 57 year old female with a history of dm, GERD, anxiety, htn, that presents to the ED with complaints of left sided flank pain, vomiting, abdominal pain, chills beginning approx 3 days.. 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 - Social history:: Smoking status: Patient/guardian denies using tobacco. - Ebola Screening: : No symptoms or risks identified at this time. ROS: 14:44 Constitutional: Negative for fever, chills, and weight loss, Cardiovascular: Negative jmm for chest pain, palpitations, and edema, Respiratory: Negative for shortness of breath, cough, wheezing, and pleuritic chest pain. 14:44 : Negative for injury, bleeding, discharge, and swelling, MS/Extremity: Negative for injury and deformity, Skin: Negative for injury, rash, and discoloration, Neuro: Negative for headache, weakness, numbness, tingling, and seizure. 14:44 Abdomen/GI: Positive for abdominal pain, nausea, vomiting. 14:44 Back: Positive for flank pain, on the left. 14:44 All other systems are negative. Exam: 14:44 Constitutional: This is a well developed, well nourished patient who is awake, alert, jmm and in no acute distress. Head/Face: atraumatic. Eyes: EOMI, no conjunctival erythema appreciated ENT: Moist Mucus Membranes Neck: Trachea midline, Supple Chest/axilla: Normal chest wall appearance and motion. Cardiovascular: Regular rate and rhythm. No edema appreciated Respiratory: Normal respirations, no respiratory distress appreciated 14:44 Abdomen/GI: Inspection: abdomen appears normal, Bowel sounds: normal, Palpation: soft, moderate abdominal tenderness, in the left upper quadrant. 14:44 Back: CVA tenderness, that is moderate, is noted bilaterally. 14:44 Musculoskeletal/extremity: ROM: intact in all extremities. 14:44 Skin: Appearance: Color: normal in color. 14:44 Neuro: Orientation: is normal, Mentation: is normal, Memory: is normal. 14:44 Psych: Behavior/mood is pleasant, cooperative. Vital Signs: 14:14 BP 121 / 77; Pulse 105; Resp 16; Temp 99.2; Pulse Ox 98% on R/A; Weight 108.86 kg; hb Height 5 ft. 2 in. (157.48 cm); Pain 8/10; 15:15 BP 116 / 69; Pulse 73; Resp 16 S; Pulse Ox 96% on R/A; aa5 16:41 Temp 98.1(O); aa5 16:49 BP 104 / 65; Pulse 74; Resp 16 S; Pulse Ox 100% on R/A; Pain 8/10; aa5 19:22 BP 110 / 70; Pulse 68; Resp 18; Temp 98.4; Pulse Ox 97% on R/A; Pain 0/10; aa1 20:30 BP 100 / 61; Pulse 72; Resp 16; Pulse Ox 95% on R/A; aa1 21:30 BP 101 / 53; Pulse 67; Resp 18; Pulse Ox 95% on R/A; Pain 6/10; aa1 22:07 BP 105 / 61; Pulse 69; Resp 16; Temp 97.9(O); Pulse Ox 97% on R/A; Pain 0/10; aa1 14:14 Body Mass Index 43.90 (108.86 kg, 157.48 cm) hb MDM: 14:44 Patient medically screened. sandi 19:28 Data reviewed: vital signs, nurses notes. Counseling: I had a detailed discussion with sandi the patient and/or guardian regarding: the historical points, exam findings, and any diagnostic results supporting the discharge/admit diagnosis, lab results, the need for further work-up and treatment in the hospital, to return to the emergency department if symptoms worsen or persist or if there are any questions or concerns that arise at home. ED course: I discussed the patient with Dr. Sheehan whom accepted admission. . 09/12 14:45 Order name: Basic Metabolic Panel; Complete Time: 15:31 [facility] 09/12 14:45 Order name: CBC with Diff; Complete Time: 15:31 [facility] 09/12 14:45 Order name: Creatinine for Radiology; Complete Time: 15:31 [facility] 09/12 14:45 Order name: Hepatic Function; Complete Time: 15:31 [facility] 09/12 14:45 Order name: Lipase; Complete Time: 15:31 [facility] 09/12 15:45 Order name: Urine Dipstick--Ancillary (enter results); Complete Time: 15:56 09/12 14:45 Order name: CT Abd/Pelvis - IV Contrast Only; Complete Time: 16:19 [facility] 09/12 17:38 Order name: Liver Only; Complete Time: 18:59 [facility] 09/12 18:28 Order name: Transvaginal Study Probe; Complete Time: 18:59 [facility] 09/12 14:45 Order name: IV Saline Lock; Complete Time: 14:50 [facility] 09/12 14:45 Order name: Labs collected and sent; Complete Time: 14:50 [facility] 09/12 14:45 Order name: Urine Dipstick-Ancillary (obtain specimen); Complete Time: 15:03 [facility] 09/12 20:50 Order name: CONS Pharmacy Consult [facility] 09/12 20:50 Order name: NPO [facility] Administered Medications: 15:00 Drug: NS 0.9% 1000 ml Route: IV; Rate: 1 bolus; Site: right forearm; aa5 16:30 Follow up: IV Status: Completed infusion; IV Intake: 1000ml aa5 15:00 Drug: Zofran 4 mg Route: IVP; Site: right forearm; aa5 15:10 Follow up: Response: No adverse reaction aa5 15:00 Drug: Tylenol 650 mg Route: PO; aa5 16:30 Follow up: Response: No adverse reaction aa5 15:01 Drug: morphine 4 mg Route: IVP; Site: right forearm; aa5 15:10 Follow up: Response: No adverse reaction aa5 16:35 Drug: NS 0.9% 1000 ml Route: IV; Rate: 1 bolus; Site: right forearm; aa5 16:35 Drug: Cipro 500 mg Route: PO; aa5 19:05 Follow up: Response: No adverse reaction aa1 16:49 Drug: fentaNYL (PF) 50 mcg Route: IVP; Site: right forearm; aa5 20:25 Drug: fentaNYL (PF) 25 mcg Route: IVP; Site: right antecubital; tr5 21:25 Follow up: Response: No adverse reaction; Pain is decreased aa1 Disposition: 09/12/18 19:30 Hospitalization ordered by Miracle Sheehan for Observation. Preliminary diagnosis is Acute pancreatitis. - Bed requested for Telemetry/MedSurg (observation). - Status is Observation. tr5 - Condition is Stable. - Problem is an acute exacerbation. - Symptoms are unchanged. UTI on Admission? Yes Addendum: 09/14/2018 18:40 Co-signature as Attending Physician, Rodríguez Edwards MD. g s Signatures: Dispatcher [employer] [facility] Stacia Bustos RN RACHEL Julian King PA PA [facility] Sheree Vargas, RN RN aa5 Tonya Berger RN Rodríguez Godinez MD MD gs Rodriguez, Tommie, RN RN tr5 Virginia Medellin RN aa1 Corrections: (The following items were deleted from the chart) 09/12 17:37 17:22 Abdomen Complete+US.RAD.BRZ ordered. EDTX EDMS 17:38 17:36 Abdomen Limited+US.RAD.BRZ ordered. EDTX EDMS 17:38 17:37 Abdomen Exam Limited ordered. [facility] EDMS 18:28 17:37 Pelvis Complete+US.RAD.BRZ ordered. [facility] 20:53 19:30 Hospitalization Ordered by Miracle Sheehan MD for Observation. Preliminary dw diagnosis is Acute pancreatitis. Bed requested for Telemetry/MedSurg (observation). Status is Observation. Condition is Stable. Problem is an acute exacerbation. Symptoms are unchanged. UTI on Admission? Yes. [facility] 22:35 20:53 09/12/2018 19:30 Hospitalization Ordered by Miracle Sheehan MD for Observation. tr5 Preliminary diagnosis is Acute pancreatitis. Bed requested for Telemetry/MedSurg (observation). Status is Observation. Condition is Stable. Problem is an acute exacerbation. Symptoms are unchanged. UTI on Admission? Yes. dw
[2018-09-12] MEDS ORDERED: MORPHINE 2 MG/ML SYR IV PRN (20:42)
[2018-09-12] MEDS ORDERED: ALBUTEROL 2.5 MG/3 ML NEB SOL NEB PRN (20:42)
[2018-09-12] MEDS: NA CHLORIDE 0.9% 1,000 ML IV SCH (23:29)
[2018-09-13 00:04] VITALS: BMI 44.5
[2018-09-13] MEDS: ACETAMINOPHEN 500 MG TAB PO PRN (00:06)
[2018-09-13 05:49] LABS: Absolute Lymphocytes (CBC) 1.2 K/uL (0.7-4.9); Basophils % 0.4 % (0-1.3); Lymphocytes % 13.5 % (15.3-44.8); RBC Red Blood Cell Count 4.34 M/uL (3.86-4.86)
--- NOTE | 2018-09-13 06:23 | P.HP ---
Certification for Inpatient Patient admitted to: Inpatient With expected LOS: >2 Midnights Patient will require the following post-hospital care: None Practitioner: I am a practitioner with admitting privileges, knowledge of patient current condition, hospital course, and medical plan of care. Services: Services provided to patient in accordance with Admission requirements found in Title 42 Section 412.3 of the Code of Federal Regulations Patient History Date of Service: 09/12/18 Reason for admission: Acute pancreatitis History of Present Illness: Patient is a 57-year-old female who comes to the hospital with abdominal discomfort. Patient's pain is mainly in the epigastric region. Patient states he has been having some significant back pain mainly on the left side. She started having the pain a couple days ago. The pain was mainly in the left mid back and left upper quadrant. Patient had been diagnosed with pancreatitis in 2011. This was felt to be secondary to cholelithiasis. Patient had laparoscopic cholecystectomy at that time. Patient has done well since that time until this episode. Unknown etiology. Check the lipid profile as well as MRCP and get GI consultation. Patient also was found have a right ovarian complex cyst. Her pain is actually on the other side. The appendix is related. She will probably need to have this followed by gynecology as an outpatient. Allergies Penicillins Adverse Reaction (Verified 11/16/14 17:04) Hives Home Medications: Escitalopram [Lexapro] 20 mg PO DAILY 09/12/18 Etodolac [Lodine Xl] 500 mg PO BID 09/12/18 Liraglutide [Victoza 2-Hubert] 1.8 mg SQ DAILY 09/12/18 Lisinopril 10 mg PO DAILY 09/12/18 Mirabegron [Myrbetriq] 50 mg PO DAILY 09/12/18 Mometasone 0.1% [Elocon 0.1% Cream] 15 appl TOP BID 09/12/18 - Past Medical/Surgical History Has patient received pneumonia vaccine in the past: Yes Diabetic: Yes -: bronchitis -: pneumonia -: HTN -: NIDDM -: preeclampsia -: tonsillectomy -: cholecystectomy -: -: tubal ligation -: partial hysterectomy -: TVT sling -: lap band -: Exploratory laparotomy, ESTHER - Family History Father Medical History: Lung disease Mother Notes: none - Social History Smoking Status: Never smoker Alcohol use: No CD- Drugs: No Caffeine use: Yes Place of Residence: Home Review of Systems 10-point ROS is otherwise unremarkable Physical Examination - Vital Signs Temperature: 97.2 F Blood Pressure: 99/54 Pulse: 72 Respirations: 18 Pulse Ox (%): 97 - Physical Exam General: Alert, In no apparent distress, Oriented x3 HEENT: Atraumatic, PERRLA, Mucous membr. moist/pink, EOMI, Sclerae nonicteric Neck: Supple, 2+ carotid pulse no bruit, No LAD, Without JVD or thyroid abnormality Respiratory: Clear to auscultation bilaterally, Normal air movement Cardiovascular: Regular rate/rhythm, Normal S1 S2, No murmurs Gastrointestinal: Normal bowel sounds, Soft and benign, Non-distended, No rebound, No guarding, Tenderness Musculoskeletal: No tenderness Integumentary: No rashes Neurological: Normal gait, Normal speech, Normal strength at 5/5 x4 extr, Normal tone, Sensation intact, Cranial nerves 3-12 intact, Normal affect Lymphatics: No axilla or inguinal lymphadenopathy - Studies Laboratory Data (last 24 hrs) 09/12/18 14:40: Creatinine 0.64 09/12/18 14:40: WBC 10.6, Hgb 14.6, Hct 42.8, Plt Count 230 09/12/18 14:40: Sodium 141, Potassium 3.7, BUN 9, Creatinine 0.64, Glucose 110 H , Total Bilirubin 0.5, AST 17, ALT 23, Alkaline Phosphatase 91, Lipase 377 Assessment & Plan - Problems (Diagnosis) (1) Acute pancreatitis Current Visit: Yes Status: Acute (2) Complex cyst of right ovary Current Visit: Yes Status: Acute - Plan 1. Continue with IV hydration 2. Continue with IV antibiotics 3. Continue with pain control 4. NPO 5. GI & gynecology consultation; MRCP pending 6. Monitor CBC, BMP, LFTs and lipase along with electrolytes. 7. GI and DVT prophylaxis Discharge Plan: Home Plan to discharge in: Greater than 2 days - Advance Directives Does patient have a Living Will: No Does patient have a Durable POA for Healthcare: No - Code Status/Comfort Care Code Status Assessed: Yes Code Status: Full Code Critical Care: No Time Spent Managing PTS Care (In Minutes): 45
[2018-09-13] MEDS: NA CHLORIDE 0.9% 1,000 ML IV SCH ×4 (07:28→20:41)
[2018-09-13 07:30] LABS: ALT/SGPT 20 U/L (12-78); AST/SGOT 13 U/L (15-37); Albumin 2.8 g/dL (3.4-5.0); Alkaline Phosphatase 79 U/L (45-117); BUN Blood Urea Nitrogen 7 mg/dL (7-18); Bicarbonate 25 mmol/L (21-32); Bilirubin Total 0.5 mg/dL (0.2-1.0); Glucose Level 114 mg/dL (74-106); HDL Cholesterol 51 mg/dL (40-60); LDL Cholesterol, Calculated 45 (<130); Lipase 278 U/L (73-393); Potassium 3.9 mmol/L (3.5-5.1); Protein, Total 6.1 g/dL (6.4-8.2); Sodium Level 143 mmol/L (136-145)
[2018-09-13 08:47] LABS: Urine Appearance CLEAR; Urine Blood NEGATIVE (NEG); Urine Color YELLOW; Urine Glucose NEGATIVE (NEG); Urine Protein NEGATIVE (NEG); Urine Specific Gravity 1.015 (1.005-1.030); Urine pH 5.5 (5.0-7.0)
[2018-09-13 08:53] LABS: Urine Bilirubin 2+ (NEG); Urine Microscopic Reflex NO UMIC
--- NOTE | 2018-09-13 09:01 | RAD REPORT ---
EXAM DESCRIPTION: MRICholangiogram09/13/2018 8:30 am CLINICAL HISTORY: Abdominal pain COMPARISON: September 12, 2018 TECHNIQUE: Magnetic resonance cholangiogram was performed. 3D MIP reconstruction performed FINDINGS: Cholecystectomy. The common hepatic duct measures 9 millimeters. Common bile duct measures 7 millimeters. A filling defect within the duct is not seen. The pancreatic duct is normal caliber IMPRESSION: Mild prominence of the biliary tree. A stone within the duct is not visualized. The mild prominence of the duct may be physiologic in this patient status post cholecystectomy
[2018-09-13] MEDS: MORPHINE 4 MG/ML SYR IV PRN ×2 (11:52→17:23)
[2018-09-13] MEDS: ONDANSETRON 4 MG/2 ML VIAL IV PRN (14:15)
--- NOTE | 2018-09-13 17:35 | P.PN ---
Subjective Date of Service: 09/13/18 Chief Complaint: Acute pancreatitis Patient seen and examined at bedside. No family at bedside. Chart reviewed and case discussed with nursing staff. Reports continued pain. Also complaining of nausea at this time. No other acute events noted overnight Review of Systems 10-point ROS is otherwise unremarkable Physical Examination - Vital Signs Temperature: 97.3 F Blood Pressure: 103/54 Pulse: 86 Respirations: 17 Pulse Ox (%): 98 - Physical Exam General: Alert, Moderate distress HEENT: Atraumatic, PERRLA, EOMI Neck: Supple, JVD not distended Respiratory: Clear to auscultation bilaterally, Normal air movement Cardiovascular: Regular rate/rhythm, Normal S1 S2 Gastrointestinal: Tenderness, Guarding Musculoskeletal: No tenderness Neurological: Normal speech, Normal tone, Normal affect Lymphatics: No axilla or inguinal lymphadenopathy Assessment And Plan - Current Problems (Diagnosis) (1) Acute pancreatitis Current Visit: Yes Status: Acute Plan: Unspecified etiology. - Continue IV hydration - Continue IV antibiotics - pain control - Continue to keep NPO. - MRCP unremarkable - GI consulted, recommendations appreciated (2) Complex cyst of right ovary Current Visit: Yes Status: Acute Plan: Pending gynecology evaluation (3) Morbid obesity Current Visit: No Status: Chronic (4) History of gastric surgery Current Visit: No Status: Chronic Plan: Done in 2008 - Plan DVT prophylaxis: Lovenox GI prophylaxis: Protonix Diet: NPO Disposition: Pending symptomatic improvement.
--- NOTE | 2018-09-13 21:05 | CON ---
Consult from our hospitalist, Dr. Sheehan. Primary Care Provider: Dr. Nichole Silva Chief Complaint: Abdominal pain, acute pancreatitis. History Of Present Illness: Patient is a 57-year-old female who presented with abdominal discomfort, left-sided pain, pain mostly in the epigastric region, but also in the back. She has experienced so me nausea as well. She came to the ER. She was admitted for pancreatitis. Gynecologic History: Patient is a 3, para 3, 2 vaginal deliveries, 1 , tubal ligatio n followed by heavy bleeding at age 42. She had a vaginal hysterectomy for dysfunctional bleeding ac cording to her story. Ovaries intact. No problems until recent times. She has been experiencing so me hot flashes and mood changes. She is being treated by Dr. Silva. She is on Lexapro 20 mg and doing well. Denies any pelvic pain or bloating. She does have urinary symptoms and symptoms of urg ency and urgency incontinence, being treated with mirabegron (Myrbetriq). Still having difficulty co ntrolling her bladder. Occasional questionable fecal incontinence episodes. Unsure whether this is vaginal discharge versus fecal leakage or fecal seepage. Patient was planning to come see me in the office; however, due to the new finding of her right ovari an cyst, she is being seen now. Past Medical History: Type 2 diabetes, hypertension, bronchitis, history of pneumonia, overactive bl adder. Surgical History: Significant for section with tubal ligation, vaginal hysterectomy, midure thral sling for stress urinary incontinence, and lap band. She later had an exploratory laparotomy a nd lysis of adhesions for nonspecific abdominal pain. Family History: No ovarian, breast, or colon cancer in the family. Social History: No smoking, alcohol, or drug use. Medications: Lexapro 20 mg, etodolac 500 mg b.i.d., Victoza, lisinopril, mometasone cream, and mirab egron 50 mg daily. Physical Examination: Vital Signs: Completely afebrile at 97.7, 103/54 for blood pressure, 86 for pulse rate, 17 for respi rations, 98% on room air. General: Patient is overweight, lying in her bed without any acute distress. Head and Neck: Unremarkable. No thyromegaly. Heart: Unremarkable. Lungs: Unremarkable. Abdomen: With the pannus. Tenderness in the upper abdominal quadrants. In the lower abdomen, no te nderness or rebound. No abdominal masses were palpable. Pelvic: Performed. Vulva and vagina appeared to be unremarkable. Vaginal gale assessed very poorl y due to the location of her examination on bed. On pelvic exam bimanually, I was able to palpate so ft cystic mass in the right adnexa. Patient's body habitus does not allow a very good exam. Extremities: Unremarkable. Imaging: On CT scan, she had a 5-cm complex cystic mass. Both cysts appeared to be adjacent to each other, aggregate of 5. On transvaginal ultrasound, these were noted and there appeared to be septat ion, but there was flow seen within the periphery. Left ovary was not visualized and there was no le ft adnexal mass noted and there was no free fluid. Assessment And Plan: 1.Right complex ovarian cyst. Incidental finding of this and it is only 5 cm. First time that this was noticed. Recommend close observation with followup either at a 6-week duration from the [facility] with a transvaginal ultrasound and a 3-month CT. She will make an appointment to see me in 3 weeks after discharge. No acute signs of torsion. Her current pain unrelated to her right adnexal mass. No role for CA-125 at this time because patient has been admitted with pancreatitis, which would alana vate her CA-125. So at this time, no cancer markers to be done. This can be re-evaluated when she i s seen in the office. 2.Abdominal pain, pancreatitis are going to be addressed by GI and she will be monitored. At this t louann, she is stable. 3.Diabetes. She is being monitored with her fingersticks and she is continuing on her home medicati ons and sliding scale. 4.Hypertension is well controlled. Continue her current medications/. 5.Menopausal symptoms. She probably is menopausal. She needs an FSH level and we can do this on an outpatient basis. We can assess the status of her menopause and then correlate if cystic lesions an d the adnexa can be explained. If they resolve, then plan is to just observe and reassure that this is perimenopausal, so we will follow up with her in 3 weeks. JOSE/TO Voice ID: [id number] Report ID: [id number]
[2018-09-14] MEDS: MORPHINE 4 MG/ML SYR IV PRN ×3 (00:31→18:01)
[2018-09-14] MEDS: NA CHLORIDE 0.9% 1,000 ML IV SCH ×3 (00:32→13:00)
[2018-09-14] MEDS: ACETAMINOPHEN 500 MG TAB PO PRN ×2 (07:41→14:08)
[2018-09-14] MEDS: ONDANSETRON 4 MG/2 ML VIAL IV PRN ×2 (07:43→15:03)
--- NOTE | 2018-09-14 12:45 | P.PN ---
Subjective Date of Service: 09/14/18 Chief Complaint: Acute pancreatitis Subjective: Improving Patient seen and examined at bedside. No family at bedside. Chart reviewed and case discussed with nursing staff. Reports slightly improved pain. Nausea also improved No other acute events noted overnight Review of Systems 10-point ROS is otherwise unremarkable Physical Examination - Vital Signs Temperature: 97.2 F Blood Pressure: 103/58 Pulse: 69 Respirations: 16 Pulse Ox (%): 95 - Physical Exam General: Alert, Oriented x3, Moderate distress HEENT: Atraumatic, PERRLA, EOMI Neck: Supple, JVD not distended Respiratory: Clear to auscultation bilaterally, Normal air movement Cardiovascular: Regular rate/rhythm, Normal S1 S2 Gastrointestinal: Tenderness Musculoskeletal: No tenderness Integumentary: No rashes Neurological: Normal speech, Normal tone, Normal affect Lymphatics: No axilla or inguinal lymphadenopathy Assessment And Plan - Current Problems (Diagnosis) (1) Acute pancreatitis Current Visit: Yes Status: Acute Plan: Unspecified etiology. Improving - Continue IV hydration - Continue IV antibiotics - pain control - Continue to keep NPO. - MRCP unremarkable - GI consulted, recommendations appreciated. Will touch base with GI in regards to ERCP and if unable to be done here due to patient's history of gastric bypass. Patient does see for gastric bypass, states that they are in the process of potential reversal, pending insurance approval for that. (2) Complex cyst of right ovary Current Visit: Yes Status: Acute Plan: Appreciated oncology evaluation. Patient will have outpatient follow up in regards to this. No further inpatient interventions/testing required at this time. (3) Morbid obesity Current Visit: No Status: Chronic (4) History of gastric surgery Current Visit: No Status: Chronic Plan: Done in [address]o in [facility]. Per patient, they are discussing the process of potential reversal and his office is working with patient in regards to insurance approval. Abdominal pain could be secondary to gastric surgery you history; will touch base with Dr. Troncoso if no improvement noted by Sunday. - Plan DVT prophylaxis: Lovenox GI prophylaxis: Protonix Diet: NPO Disposition: Pending symptomatic improvement.
[2018-09-14] MEDS ORDERED: Ringers Lactate 1,000 ML IV ONE (14:49)
--- NOTE | 2018-09-14 16:11 | P.PN ---
Subjective Date of Service: 09/14/18 Chief Complaint: Acute pancreatitis Subjective: Improving (Less abdominal pain today. Headache and nausea after limited walking today. Minimal urinary output she notes. IVFs at 100 cc/hour in a 243 lbs woman.) Review of Systems 10-point ROS is otherwise unremarkable General: Weakness, Malaise Gastrointestinal: Nausea, Abdominal Pain Neurological: Other (headache after walking. ) Physical Examination - Vital Signs Temperature: 97.2 F Blood Pressure: 103/58 Pulse: 69 Respirations: 16 Pulse Ox (%): 95 - Physical Exam General: Alert, Oriented x3, Cooperative, Mild distress HEENT: Atraumatic, Normocephalic, PERRLA, EOMI Neck: Supple Respiratory: Normal air movement Cardiovascular: Normal pulses Gastrointestinal: No rebound, Other (obese), Tenderness, Guarding Neurological: Normal speech, Normal strength at 5/5 x4 extr Assessment And Plan - Current Problems (Diagnosis) (1) Epigastric abdominal pain Current Visit: Yes Status: Acute (2) LUQ abdominal pain Current Visit: Yes Status: Acute (3) Abnormal CT of the abdomen Current Visit: Yes Status: Acute (4) Acute pancreatitis Current Visit: Yes Status: Acute Comment: Idiopathic. Improving but needs increase in IVFs and check labs. (5) Complex cyst of right ovary Current Visit: Yes Status: Acute (6) Dyspnea Onset Date: 11/17/14 Current Visit: No Status: Acute (7) Morbid obesity Current Visit: No Status: Chronic - Plan REC: 1) Increase IVFs - LR and 2) check labs 3) ice chips and water only
[2018-09-14] MEDS: Ringers Lactate 1,000 ML IV SCH ×2 (16:21→23:14)
--- NOTE | 2018-09-14 21:03 | CON ---
Date of Consultation: 09/13/2018 Reason For Consultation: Acute idiopathic pancreatitis. History Of Present Illness: The patient is a 57-year-old female with history of diabetes, h ypertension, urinary incontinence, arthritis of the knees bilaterally, laparoscopic cholecystectomy, obesity. Patient came to the hospital with acute left upper quadrant pain, /10 now down to 7/10, as sociated with nausea, vomiting, fevers, chills, night sweats. She states the pain began Sunday ni ght approximately 3 days ago after eating some goulash. Patient's triglycerides are negative, MRCP i s negative. Patient denies any alcohol as well. No trauma, infections, or other. Past Medical History: Significant for diabetes, hypertension, urinary incontinence, arthritis of the knees bilaterally, obesity, menopause, laparoscopic cholecystectomy, , tubal ligation, lapa roscopic banding of the stomach and genitourinary sling, surgery for urinary incontinence. Some bron chitis, pneumonia in the past, preeclampsia, exploratory laparotomy with ESTHER. Medications: She reports home medicines include Lexapro; etodolac, which is Lodine; Victoza; lisinop ril; mirabegron; and mometasone. Allergies: PENICILLIN. Social History: She is , 3 kids. No tobacco. No alcohol. Family History: Father of pneumonia. Mother is alive and well. Review of Systems: Patient has left upper quadrant pain, nausea, vomiting, fevers, chills, night sweats, obesity. She d enies any melena, hematochezia, hematemesis, coffee-ground emesis, hematuria, dysuria, polydipsia, ch est pain, shortness of breath, seizure, syncope, lower extremity edema, muscle aches, backaches, depr ession, anxiety. Physical Examination: Vital Signs: Patient is 5 feet 2 inches, 243 pounds, BMI 44.5 kg/sq m. She had a temperature of 97. 3 Fahrenheit, pulse 77, respirations 18, blood pressure 114/53, O2 saturation 98%. HEENT: Normocephalic, atraumatic. Anicteric. Pupils equal, round, and reactive to light. Extraocu lar movements are intact. Oropharynx clear. Neck: Supple. No masses. Respirations: Clear to auscultation bilaterally. Cardiac: Regular rate and rhythm. No gallops or rubs. Abdomen: Hypoactive bowel sounds. Soft, obese. Pain in the left upper quadrant area, midepigastric area extending down to the left lower quadrant area. No rebound. No peritoneal or Herrmann signs. S ome mild guarding. Extremities: No clubbing, cyanosis, or edema. 2+ pulses. Neuro: Alert and oriented x3. Grossly nonfocal. 5/5 motor. Sensation intact to light touch. Laboratory Data: Patient has a white count of 9.1, hemoglobin 12.7, hematocrit 38, MCV of 88, platel et count of 183, polys of 78%, lymphocytes 14%, monocytes 10%. Patient has a sodium of 143, potassiu m 3.9, chloride 112, bicarb 25, BUN 7, creatinine of 0.5, glucose 114, calcium 7.9, total bilirubin 0 .5, AST of 13, ALT 20, alkaline phosphatase 79, total protein 6.1, albumin 2.8. Triglycerides 68, ch olesterol 110, LDL 45, HDL 51. Lipase of 278, down from 377, which was normal yesterday, normal rang e of 73 to for the lipase. Imaging: CT abdomen and pelvis revealed [id number] pancreatitis. There was also a 5-cm comple x cystic mass in the right adnexum, stable since 2017. GAMEPLAY ENGINEER has been consulted and says this is nothi ng acute. MRCP was performed and revealed mild prominence of biliary tree. No stone was seen. Mild prominence of duct was within physiologic limits for patient status post cholecystectomy, which she has. Impression: 1.Acute idiopathic pancreatitis. Patient is status post cholecystectomy in the past. She denies an y alcohol or tobacco. She also had normal triglycerides and negative MRCP. Patient notes to eating [place] Sunday night before pain started. Pain is associate with nausea, vomiting, fevers, chills , night sweats; 9/10 on admission, now down to 7/10, slowly improving. 2.History of diabetes, hypertension, urinary continence, arthritis of the knees bilaterally, obesity , menopause, laparoscopic cholecystectomy, , total tubal ligation, lap band, and sling fo r urinary incontinence. Surgery as stated above. Recommendations: 1.Patient increase IV fluids. 2.P.r.n. pain medicines, antiemetics. 3.Consider ERCP if needed for possible microlithiasis or other. LYUDMILA/TO Voice ID: [id number] Report ID: [id number]
[2018-09-15] MEDS: MORPHINE 4 MG/ML SYR IV PRN ×2 (04:58→14:24)
[2018-09-15] MEDS: Ringers Lactate 1,000 ML IV SCH ×3 (05:02→19:40)
[2018-09-15 06:30] LABS: ALT/SGPT 24 U/L (12-78); AST/SGOT 17 U/L (15-37); Albumin 2.5 g/dL (3.4-5.0); Alkaline Phosphatase 83 U/L (45-117); BUN Blood Urea Nitrogen 7 mg/dL (7-18); Bicarbonate 25 mmol/L (21-32); Bilirubin Total 0.3 mg/dL (0.2-1.0); Glucose Level 76 mg/dL (74-106); Lipase 153 U/L (73-393); Potassium 3.7 mmol/L (3.5-5.1); Protein, Total 5.9 g/dL (6.4-8.2); Sodium Level 142 mmol/L (136-145)
[2018-09-15] MEDS ORDERED: D50W 25 GM/50 ML SYRINGE IV ONE (08:04)
[2018-09-15] MEDS: ONDANSETRON 4 MG/2 ML VIAL IV PRN (10:10)
--- NOTE | 2018-09-15 13:26 | P.PN ---
Subjective Date of Service: 09/15/18 Chief Complaint: Acute pancreatitis Subjective: Improving (Her abdominal pain has markedly improved. But reports not tolerating clear liquids well.) Review of Systems 10-point ROS is otherwise unremarkable General: Weakness Gastrointestinal: Abdominal Pain (Improved. ) Physical Examination - Vital Signs Temperature: 97.1 F Blood Pressure: 114/63 Pulse: 65 Respirations: 16 Pulse Ox (%): 96 - Physical Exam General: Alert, In no apparent distress, Oriented x3, Cooperative HEENT: Atraumatic, Normocephalic, PERRLA, EOMI Neck: Supple Respiratory: Normal air movement Cardiovascular: Normal pulses Gastrointestinal: No rebound, Tenderness (Improved. ) Neurological: Normal speech, Normal strength at 5/5 x4 extr Assessment And Plan - Current Problems (Diagnosis) (1) Epigastric abdominal pain Current Visit: Yes Status: Acute Comment: Improved. (2) LUQ abdominal pain Current Visit: Yes Status: Acute Comment: Improved. (3) Abnormal CT of the abdomen Current Visit: Yes Status: Acute (4) Acute pancreatitis Current Visit: Yes Status: Acute Comment: Idiopathic. Improving but needs increase in IVFs and check labs. (5) Complex cyst of right ovary Current Visit: Yes Status: Acute (6) Dyspnea Onset Date: 11/17/14 Current Visit: No Status: Acute (7) Morbid obesity Current Visit: No Status: Chronic - Plan REC: 1) continue IVFs - LR and 2) check labs 3) ice chips and water to clear liquids
--- NOTE | 2018-09-15 13:45 | P.PN ---
Subjective Date of Service: 09/15/18 Chief Complaint: Acute pancreatitis Subjective: Improving Patient seen and examined at bedside. No family at bedside. Chart reviewed and case discussed with nursing staff. Reports improved pain. Nausea also improved No other acute events noted overnight Review of Systems 10-point ROS is otherwise unremarkable Physical Examination - Vital Signs Temperature: 97.1 F Blood Pressure: 114/63 Pulse: 65 Respirations: 16 Pulse Ox (%): 96 - Physical Exam General: Alert, In no apparent distress, Obese HEENT: Atraumatic, PERRLA, EOMI Neck: Supple, JVD not distended Respiratory: Clear to auscultation bilaterally, Normal air movement Cardiovascular: Regular rate/rhythm, Normal S1 S2 Gastrointestinal: Normal bowel sounds, Tenderness Musculoskeletal: No tenderness Integumentary: No rashes Neurological: Normal speech, Normal tone, Normal affect Lymphatics: No axilla or inguinal lymphadenopathy Assessment And Plan - Current Problems (Diagnosis) (1) Acute pancreatitis Current Visit: Yes Status: Acute Plan: Unspecified etiology. Improving - Continue IV hydration - Continue IV antibiotics - pain control - advance diet to clear liquid - MRCP unremarkable - GI consulted, recommendations appreciated. Will touch base with GI in regards to ERCP and if unable to be done here due to patient's history of gastric bypass. Patient does see for gastric bypass, states that they are in the process of potential reversal, pending insurance approval for that. (2) Complex cyst of right ovary Current Visit: Yes Status: Acute Plan: Appreciated oncology evaluation. Patient will have outpatient follow up in regards to this. No further inpatient interventions/testing required at this time. (3) Morbid obesity Current Visit: No Status: Chronic (4) History of gastric surgery Current Visit: No Status: Chronic Plan: Done in 2008 with doctor Troncoso in [facility]. Per patient, they are discussing the process of potential reversal and his office is working with patient in regards to insurance approval. Abdominal pain could be secondary to gastric surgery you history; will touch base with Dr. Troncoso if no improvement noted by Sunday. - Plan DVT prophylaxis: Lovenox GI prophylaxis: Protonix Diet: Clear liquid Disposition: Pending symptomatic improvement.
[2018-09-15] MEDS: ACETAMINOPHEN 500 MG TAB PO PRN (20:50)
[2018-09-16] MEDS: Ringers Lactate 1,000 ML IV SCH ×2 (02:20→09:00)
[2018-09-16 05:10] VITALS: O2SAT 92
[2018-09-16 06:11] LABS: Absolute Lymphocytes (CBC) 1.1 K/uL (0.7-4.9); Basophils % 0.3 % (0-1.3); Hematocrit 36.3 % (36.0-45.0); Lymphocytes % 19.3 % (15.3-44.8); MPV 9.2 fL (7.6-11.3)
[2018-09-16 06:32] LABS: ALT/SGPT 25 U/L (12-78); AST/SGOT 19 U/L (15-37); Albumin 2.7 g/dL (3.4-5.0); Alkaline Phosphatase 80 U/L (45-117); BUN Blood Urea Nitrogen 4 mg/dL (7-18); Bicarbonate 26 mmol/L (21-32); Bilirubin Total 0.4 mg/dL (0.2-1.0); Glucose Level 94 mg/dL (74-106); Potassium 3.6 mmol/L (3.5-5.1); Protein, Total 6.2 g/dL (6.4-8.2); Sodium Level 145 mmol/L (136-145)
[2018-09-16 12:28] VITALS: BP 156/67; TEMP 97.7
--- NOTE | 2018-09-16 15:07 | P.DS ---
Admission Date: 09/12/18 Discharge Date: 09/16/18 Disposition: ROUTINE DISCHARGE Discharge Condition: GOOD Reason for Admission: Acute pancreatitis Consultations: GI Gynecology - Problems (1) Acute pancreatitis Status: Acute (2) Complex cyst of right ovary Status: Acute (3) Morbid obesity Status: Chronic (4) History of gastric surgery Status: Chronic Brief History of Present Illness: Patient is a 57-year-old female who comes to the hospital with abdominal discomfort. Patient's pain is mainly in the epigastric region. Patient states he has been having some significant back pain mainly on the left side. She started having the pain a couple days ago. The pain was mainly in the left mid back and left upper quadrant. Patient had been diagnosed with pancreatitis in 2011. This was felt to be secondary to cholelithiasis. Patient had laparoscopic cholecystectomy at that time. Patient has done well since that time until this episode. Unknown etiology. Check the lipid profile as well as MRCP and get GI consultation. Patient also was found have a right ovarian complex cyst. Her pain is actually on the other side. The appendix is related. She will probably need to have this followed by gynecology as an outpatient. Hospital Course: Patient was admitted for acute pancreatitis. She was started on IV fluids, IV antibiotics and pain control. MRCP was done, which was unremarkable. GI was consulted. Patient does have a history of gastric bypass, for which she follows up with a physician as an outpatient. Her symptoms improved, her diet was advanced. Prior to discharge, she was tolerating a GI soft diet without any new problems. For her complex cyst of the right ovary. Gynecology was consulted. She will follow up as an outpatient with gynecology. No further inpatient interventions are testing required at this time. Her diagnosis and treatment plan explained to her question, All questions were answered. She verbalized understanding. She was then discharged home in a safe stable manner. She has appointment scheduled with in 2 days. Vital Signs/Physical Exam: Temp Pulse Resp BP Pulse Ox 97.7 F 52 20 156/67 H 96 09/16/18 12:00 09/16/18 12:00 09/16/18 12:00 09/16/18 12:00 09/16/18 12:00 General: Alert, In no apparent distress, Oriented x3 HEENT: Atraumatic, PERRLA, EOMI Neck: Supple, JVD not distended Respiratory: Clear to auscultation bilaterally, Normal air movement Cardiovascular: Regular rate/rhythm, Normal S1 S2 Gastrointestinal: Normal bowel sounds, No tenderness Musculoskeletal: No tenderness Integumentary: No rashes Neurological: Normal speech, Normal tone, Normal affect Lymphatics: No axilla or inguinal lymphadenopathy Laboratory Data at Discharge: WBC 5.5 K/uL (4.3-10.9) D 09/16/18 05:44 Hgb 12.5 g/dL (12.0-15.0) 09/16/18 05:44 Hct 36.3 % (36.0-45.0) 09/16/18 05:44 Plt Count 193 K/uL (152-406) 09/16/18 05:44 Sodium 145 mmol/L (136-145) 09/16/18 05:44 Potassium 3.6 mmol/L (3.5-5.1) 09/16/18 05:44 BUN 4 mg/dL (7-18) L 09/16/18 05:44 Creatinine 0.45 mg/dL (0.55-1.3) L 09/16/18 05:44 Glucose 94 mg/dL (74-106) 09/16/18 05:44 Total Bilirubin 0.4 mg/dL (0.2-1.0) 09/16/18 05:44 AST 19 U/L (15-37) 09/16/18 05:44 ALT 25 U/L (12-78) 09/16/18 05:44 Alkaline Phosphatase 80 U/L (45-117) 09/16/18 05:44 Triglycerides 68 mg/dL (<150) 09/13/18 05:26 Cholesterol 110 mg/dL (<200) 09/13/18 05:26 HDL Cholesterol 51 mg/dL (40-60) 09/13/18 05:26 Cholesterol/HDL Ratio 2.16 09/13/18 05:26 Lipase 153 U/L (73-393) 09/15/18 05:48 Home Medications: Escitalopram [Lexapro*] 20 mg PO DAILY 09/12/18 Etodolac [Lodine Xl] 500 mg PO BID 09/12/18 Liraglutide [Victoza 2-Hubert] 1.8 mg SQ DAILY 09/12/18 Lisinopril 10 mg PO DAILY 09/12/18 Mirabegron [Myrbetriq] 50 mg PO DAILY 09/12/18 Mometasone 0.1% [Elocon 0.1% Cream*] 15 appl TOP BID 09/12/18 Patient Discharge Instructions: Please follow up with Dr. Troncoso as you have an appointment scheduled. Please return to the emergency room for worsening symptoms Diet: as tolerated Activity: Ad iesha Time spent managing pt's care (in minutes): 55
== END 2018-09-16 14:15 | disposition home or self-care (01) | DRG 439 ==
LOC: ER 14:03 → ERHOLD 21:53 → 2ND 22:21
PROVIDERS: ADMIT Hospitalist; ATTEND Family Medicine
DX: K85.00 Idiopathic acute pancreatitis without necrosis or infection (principal); Z68.41 Body mass index [BMI] 40.0-44.9, adult; N83.291 Other ovarian cyst, right side; I10 Essential (primary) hypertension; E11.65 Type 2 diabetes mellitus with hyperglycemia; K21.9 Gastro-esophageal reflux disease without esophagitis; F41.9 Anxiety disorder, unspecified; E66.01 Morbid (severe) obesity due to excess calories; N32.81 Overactive bladder; Z98.84 Bariatric surgery status; Z88.0 Allergy status to penicillin
CPT/HCPCS: 36415; 74177; 74181; 76705; 76830; 80048; 80053; 80061; 80076; 81003; 82962; 83690; 85025; 99285; J2270; J2405; J3010; J7030; Q9967

== ENCOUNTER 2024-07-06 21:44 | Inpatient (IN) | payer BC, MEDICARE ==
--- OUTSIDE RECORDS SUMMARY | 2024-07-06 21:54 | XMS REPORT | Continuity of Care Document ---
Author Name Unknown Address [address] [facility] [address] [place] [address] [facility] Address [address] [facility] [address] [place] [address] Care Team Providers Care Special Certificate Dictator Name Role Phone Matthew BUSH, Malika Latham Primary Care Physician ERICK CHAIREZ Attending Clinician Unavailable CATHY HAYNES Attending Clinician Unavailable CAMILO MONSALVE Attending Clinician Unavailable Lab, Ang - Db Attending Clinician Unavailable Camilo Bone Attending Clinician [phone] Doctor Unassigned, Hilbert Attending Clinician U Romelia Pagan CPhT Attending Clinician Unavail able GENE CANNON Attending Clinician Unavailable GENE CANNON Attending Clinician Unavailable SPENCER ALEXANDRE Attending Clinician Unavail able Savana Jones NP Attending Clinician [phone] JONATHAN KAPLAN Attending Clinician Irene vailable Camilo Bone Attending Clinician [phone] Lab, Ang - Db Attending Clinician Unavailable BRIGITTE FREEMAN Attending Clinician Unavailable Brigitte Torres Attending Clinician [phone] Unknown, Attending Attending Clinician Unavailab le Doctor Unassigned, Hilbert Attending Clinician U maame Stockton MD, Ramana Attending Clinician [phone] Maurice GLAZE HANDLER, Christopher Attending Clinician [phone] CHRISTOPHER DAS Attending Clinician Unavailable [email or web address]_S Attending Clinician Unavailpao Chairez MD, Erick Attending Clinician [phone] CATHY HAYNES Attending Clinician Unavailable FARIHA CRUZ Attending Clinician Unavailable Balbina BUSH, Fariha Attending Clinician [phone] , [facility] Attending Clinician Unavailable MALIKA PIRES Attending Clinician UnaISAMAR Love Attending Clinician Unavailpao Senior GLAZE HANDLER, Isamar Anthony Attending Clinician [phone] Jerry GNMonique, Severiano Attending Clinician [phone] SEVERIANO SEGUNDO Attending Clinician UnavailIrineo Maharaj MD Attending Clinician [phone] [facility], [facility] Lab Main Attending Clinician Unavailesther freed LAB90 Attending Clinician Unavailable Matthew BUSH, Malika Latham Attending Clinician [phone] AGUS WILSON M.D. Attending Clinician Unavailab ANGELES Graham RD Attending Clinician UnaMICHAELA Kuhn, ANNAMARIA Attending Clinician UnavailHAMILTON Perales Attending Clinician Unavailab ERICK Colunga Admitting Clinician Unavailable CATHY HAYNES Admitting Clinician Unavailable [email or web address]_Katrini_Loyd Admitting Clinician UnavailCAMILO Wolff Admitting Clinician Unavailable Contreras BUSH, Erick Admitting Clinician [phone] UROLOGY Admitting Clinician Unavailable HAMILTON SANTOS Admitting Clinician Unavailab le Payers Payer Name Policy Type Policy Number Effective Date Expirati on Date Source [place] [employer] [id number] 2020 00:00:00 [facility] [employer] BLUE ADVANTAGE O [id number] 2024 00:00:00 [employer] 2 [id number] 2021 00:00:00 Problems Condition Name Condition Details Condition Category Status Onset Date Resolution Date Last Treatment Date Treating Clinician Comments Source Need for vaccinatio n Need for vaccinatio n Disease Active 2023-02 0-14 00:00: 00 [facility] ESVIN (stress urinary incontinen ce, female) ESVIN (stress urinary incontinen ce, female) Disease Active 3-16 00:00: 00 Overview: Formattin g of this note might be different from the original. Added automatic ally from request for surgery [id number] [facility] Controlled type 2 diabetes mellitus without complicati on, without long-term current use of insulin Controlled type 2 diabetes mellitus without complicati on, without long-term current use of insulin Disease Active 2021-02 00:00: 00 [facility] Anxiety Anxiety Disease Active 2021-02 00:00: 00 [facility] Controlled type 2 diabetes mellitus without complicati on, without long-term current use of insulin Controlled type 2 diabetes mellitus without complicati on, without long-term current use of insulin Disease Active 2021-02 00:00: 00 [facility] Chronic GERD Chronic GERD Disease Active 2021-02 00:00: 00 [facility] Erosion of bladder suspension mesh, initial encounter Erosion of bladder suspension mesh, initial encounter Disease Active 11-24 00:00: 00 Overview: Formattin g of this note might be different from the original. Added automatic ally from request for surgery [id number] [facility] Obesity (BMI 30-39.9) Obesity (BMI 30-39.9) Disease Active 11-09 00:00: 00 [facility] OAB (overactiv e bladder) OAB (overactiv e bladder) Disease Active 11-07 00:00: 00 Overview: Formattin g of this note might be different from the original. Added automatic ally from request for surgery [id number] [facility] Urge incontinen ce Urge incontinen ce Disease Active 11-07 00:00: 00 Overview: Formattin g of this note might be different from the original. Added automatic ally from request for surgery [id number] [facility] Routine gynecologi richard examinatio n Routine gynecologi richard examinatio n Disease Active 2015-02 0 00:00: 00 [facility] Essential hypertensi on Essential hypertensi on Disease Active 2015-02 0 00:00: 00 [facility] Morbid obesity due to excess calories Morbid obesity due to excess calories Disease Active 2015-02 0 00:00: 00 [facility] No known active problems No known active problems Disease Ailyn Krishnan Carpal tunnel syndrome (disorder) Carpal tunnel syndrome (disorder) Active Problem 03/07/2020 [facility] Problem Active 2020-03-07 01:16:06 Jarocho Wagoner Paresthesi a (finding) Paresthesi a (finding) Active Problem 03/07/2020 [facility] Problem Active 2020-03-07 01:16:06 Jarocho Wagoner Caloric malnutriti on Caloric malnutriti on Problem Active [facility] Fat malabsorpt ion Fat malabsorpt ion Problem Active [facility] History of laparoscop ic adjustable gastric banding History of laparoscop ic adjustable gastric banding Problem Active [facility] Allergies, Adverse Reactions, Alerts Allergy Name Allergy Type Status Severity Reaction(s) Onset Date Inactive Date Treating Clinician Comments Source Penicill ins Propensi ty to adverse reaction s Active Hives 2015-02 00:00: 00 Ailyn Krishnan PENICILL INS Drug Class Active Hives 2015-02 00:00: 00 [facility] Penicill ins Propensi ty to adverse reaction s Active Hives 2015-02 0 00:00: 00 [facility] Penicill ins Propensi ty to adverse reaction s Active Hives 2015-02 00:00: 00 [facility] Social History Social Habit Start Date Stop Date Quantity Comments Source [facility] Not [facility] Alcoholic beverage intake 2024-06-26 00:00:00 2024-06-26 00:00:00 0 /d [facility] History of Social function 2023-06-28 00:00:00 2023-06-28 00:00:00 [facility] Alcohol intake 2023-06-28 00:00:00 2023-06-28 00:00:00 0 /d [facility] Exposure to SARS-CoV-2 (event) 2022-07-31 00:00:00 2022-08-10 10:48:00 Not sure [facility] Tobacco use and exposure 2015-12-01 00:00:00 2015-12-01 00:00:00 Smokeless tobacco non-user [facility] Sex assigned at 1960 00:00:00 1960 00:00:00 [facility] Smoking Status Start Date Stop Date Source Never smoked tobacco [facility] Medications Ordered Medication Name Filled Medication Name Start Date Stop Date Current Medication? Ordering Clinician Indication Dosage Frequency Signature (SIG) Comments Components Source tirzepatide (MOUNJARO) 10 mg/0.5 mL subcutaneou s injection pen [id number] 06-26 00:00: 00 Yes [id number] 10mg inject 10 mg under the skin weekly. [facility] escitalopra m oxalate 20 mg tablet escitalopra m oxalate 20 mg tablet 06-26 00:00: 00 Yes [id number] 20mg Take 1 tablet by mouth in the morning. [facility] lisinopriL 2.5 mg tablet 06-26 00:00: 00 Yes [id number] 2.5mg Take 1 tablet by mouth in the morning. [facility] omeprazole 40 mg capsule 06-26 00:00: 00 Yes [id number] 40mg Take 1 capsule by mouth in the morning. [facility] escitalopra m oxalate 20 mg tablet escitalopra m oxalate 20 mg tablet 04-03 00:00: 00 06-26 00:00 :00 No [id number] 20mg Take 1 tablet by mouth in the morning. [facility] omeprazole 40 mg capsule 04-03 00:00: 00 06-26 00:00 :00 No [id number] 40mg Take 1 capsule by mouth in the morning. [facility] lisinopriL 2.5 mg tablet 2025-0 2-06 00:00: 00 06-26 00:00 :00 No [id number] 2.5mg Take 1 tablet by mouth in the morning. [facility] lisinopriL 2.5 mg tablet 1-06 00:00: 00 04-03 00:00 :00 No [id number] 2.5mg Take 1 tablet by mouth in the morning. [facility] tirzepatide (MOUNJARO) 10 mg/0.5 mL subcutaneou s injection pen [id number] - 00:00: 00 06-26 00:00 :00 No [id number] 10mg inject 10 mg under the skin weekly. [facility] tirzepatide (MOUNJARO) 10 mg/0.5 mL subcutaneou s injection pen 2023-02 2-31 00:00: 00 02-27 00:00 :00 No [id number] 10mg inject 10 mg under the skin weekly. [facility] lisinopriL 2.5 mg tablet 2023-02 1-18 00:00: 00 03-02 00:00 :00 No [id number] 2.5mg Take 1 tablet by mouth in the morning. [facility] lisinopriL 2.5 mg tablet 2023-02 0-21 00:00: 00 01-12 00:00 :00 No [id number] 2.5mg Take 1 tablet by mouth in the morning. [facility] escitalopra m oxalate 20 mg tablet 2023-02 0-15 00:00: 00 04-03 00:00 :00 No [id number] 20mg Take 1 tablet by mouth in the morning. [facility] tirzepatide (MOUNJARO) 10 mg/0.5 mL subcutaneou s injection pen 2023-02 0-15 00:00: 00 02-24 00:00 :00 No [id number] 10mg inject 10 mg under the skin weekly. [facility] clindamycin 300 mg capsule 2023-02 0-14 00:00: 00 Yes [id number] 300mg Take 1 capsule by mouth 4 (four) times daily. [facility] mupirocin 2 % ointment 2023-02 0-14 00:00: 00 Yes [id number] Apply to area(s) 3 (three) times daily. [facility] tirzepatide (MOUNJARO) 10 mg/0.5 mL subcutaneou s injection 2023-02 014 00:00: 00 12-10 00:00 :00 No [id number] 10mg inject 10 mg under the skin weekly. [facility] escitalopra m oxalate 20 mg tablet 2023-02 0 00:00: 00 12-10 00:00 :00 No [id number] 20mg Take 1 tablet by mouth in the morning. [facility] escitalopra m oxalate 20 mg tablet 30 00:00: 00 12-09 00:00 :00 No [id number] 20mg Take 1 tablet by mouth in the morning. [facility] tirzepatide (MOUNJARO) 10 mg/0.5 mL subcutaneou s injection 11-12 00:00: 00 12-09 00:00 :00 No [id number] 10mg inject 10 mg under the skin weekly. [facility] lisinopriL 2.5 mg tablet 10-14 00:00: 00 12-15 00:00 :00 No [id number] 2.5mg Take 1 tablet by mouth in the morning. [facility] tirzepatide (MOUNJARO) 10 mg/0.5 mL subcutaneou s injection -19 00:00: 00 11-12 00:00 :00 No [id number] 10mg inject 10 mg under the skin weekly. [facility] ergocalcife rol, vitamin d2, 1,250 mcg (50,000 unit) capsule 8-16 00:00: 00 Yes [id number] TAKE ONE CAPSULE BY MOUTH ONE TIME PER WEEK [facility] omeprazole 40 mg capsule 7-24 00:00: 00 04-03 00:00 :00 No [id number] 40mg Take 1 capsule by mouth in the morning. [facility] lisinopriL 5 mg tablet 09-12 00:00: 10-14 00:00 :00 No [id number] 5mg TAKE 1 TABLET BY MOUTH EVERY DAY IN THE MORNING [facility] tirzepatide (MOUNJARO) 7.5 mg/0.5 mL subcutaneou s injection 09-04 00:00: 00 10-14 00:00 :00 No [id number] 7.5mg inject 7.5 mg under the skin weekly. [facility] Nitrofurant oin&Nit. Macrocryst (MACROBID) 100 mg capsule 09-04 00:00: 00 09-12 04:59 :00 No [id number] 100mg Take 1 capsule by mouth in the morning and 1 capsule in the evening. Do all this for 7 days. [facility] bromphenira mine-pseudo ephedrine-D M (BROMFED DM) 2-30-10 mg/5 mL syrup 08-19 00:00: 00 09-04 00:00 :00 No [id number] 5mL Take 5 mL by mouth 4 (four) times daily as needed for Congestion /Allergies . [facility] doxycycline hyclate 100 mg tablet 08-19 00:00: 08-27 04:59 :00 No [id number] 100mg Take 1 tablet by mouth in the morning and 1 tablet in the evening. Do all this for 7 days. [facility] escitalopra m oxalate 20 mg tablet 07-31 00:00: 00 11-23 00:00 :00 No [id number] 20mg Take 1 tablet by mouth in the morning. [facility] ERGOCALCIFE ROL, VITAMIN D2, 1,250 mcg (50,000 unit) capsule 07-30 00:00: 00 10-11 00:00 :00 No [id number] TAKE ONE CAPSULE BY MOUTH ONE TIME PER WEEK [facility] mometasone 0.1 % ointment mometasone 0.1 % ointment 06-27 00:00: 00 Yes [id number] Apply to area(s) daily. [facility] tirzepatide (MOUNJARO) 7.5 mg/0.5 mL subcutaneou s injection 06-27 00:00: 00 09-04 00:00 :00 No [id number] 7.5mg inject 7.5 mg under the skin weekly. [facility] tirzepatide (MOUNJARO) 5 mg/0.5 mL subcutaneou s injection 4-25 00:00: 00 06-27 00:00 :00 No [id number] 5mg inject 5 mg under the skin weekly. [facility] LISINOPRIL 5 mg tablet 3-06 00:00: 00 09-12 00:00 :00 No [id number] 5mg TAKE 1 TABLET BY MOUTH EVERY DAY IN THE MORNING [facility] lisinopriL 5 mg tablet 2-12 00:00: 00 Yes [id number] 5mg Take 1 tablet by mouth in the morning. [facility] tirzepatide (MOUNJARO) 5 mg/0.5 mL subcutaneou s injection 1-30 00:00: 00 Yes [id number] 5mg inject 5 mg under the skin weekly. [facility] levalbutero l (XOPENEX HFA) 45 mcg/actuati on inhaler 18 00:00: 00 Yes [id number] 1{puff} Inhale 1-2 Puffs every 4 (four) hours as needed for Wheezing or Bronchospa sm. [facility] escitalopra m oxalate 20 mg tablet 03-07 00:00: 00 07-31 00:00 :00 No [id number] 20mg Take 1 tablet by mouth in the morning. [facility] tirzepatide (MOUNJARO) 2.5 mg/0.5 mL subcutaneou s injection 03-06 00:00: 00 03-27 00:00 :00 No [id number] 2.5mg inject 2.5 mg under the skin weekly. [facility] levalbutero l (XOPENEX HFA) 45 mcg/actuati on inhaler 03-06 00:00: 00 03-15 00:00 :00 No [id number] 1{puff} Inhale 1-2 Puffs every 4 (four) hours as needed for Wheezing or Bronchospa sm. [facility] codeine-gua ifenesin 10-100 mg/5 mL oral solution 03-04 00:00: 00 03-12 05:59 :00 No [id number] 5mL Take 5 mL by mouth every 6 (six) hours as needed for Cough for up to 7 days. Indication s: acute pain [facility] oseltamivir (TAMIFLU) 75 mg capsule 03-04 00:00: 00 03-10 05:59 :00 No [id number] 75mg Take 1 capsule by mouth in the morning and 1 capsule in the evening. Do all this for 5 days. [facility] lisinopriL 5 mg tablet 02-26 00:00: 00 04-08 00:00 :00 No [id number] 5mg Take 1 tablet by mouth in the morning. [facility] ZENPEP 40,000-126, 000- 168,000 unit CpDR 2022-02 00:00: 00 Yes [facility] phenazopyri dine 200 mg tablet 2022-02 00:00: 00 Yes TAKE 1 TABLET EVERY 8 HOURS NEEDED [facility] ciprofloxac in HCl 500 mg tablet 2022-02 00:00: 00 Yes TAKE 1 TABLET EVERY TWELVE HOURS FOR 5 DAYS [facility] escitalopra m oxalate 20 mg tablet 2022-02 00:00: 00 03-07 00:00 :00 No [id number] 20mg Take 1 tablet by mouth in the morning. MUST BE SEEN FOR FURTHER REFILLS [facility] ergocalcife rol, vitamin d2, 1,250 mcg (50,000 unit) capsule 2022-02 00:00: 00 Yes [id number] 61743P Take 1 capsule by mouth weekly. [facility] escitalopra m oxalate 20 mg tablet 2022-02 00:00: 00 02-12 00:00 :00 No [id number] 20mg Take 1 tablet by mouth in the morning. [facility] clostridium botulinum toxin (BOTOX) injection 100 Units 10-17 15:15: 00 10-17 14:25 :00 No [id number] 100U [facility] lisinopriL 5 mg tablet 09-13 00:00: 00 02-24 00:00 :00 No [id number] 5mg Take 1 tablet by mouth in the morning. [facility] mometasone 0.1 % ointment 08-10 14:31: 25 Yes Apply to area(s) daily. [facility] sulfamethox azole-trime thoprim (BACTRIM DS) 800-160 mg per tablet 08-10 00:00: 00 08-16 04:59 :00 No [id number] 1{tbl} Take 1 tablet by mouth in the morning and 1 tablet in the evening. Do all this for 5 days. Start 3 days prior the Botox [facility] semaglutide , weight loss, (WEGOVY) 0.25 mg/0.5 mL PnIj SC injection 08-07 00:00: 00 03-06 00:00 :00 No [id number] .25mg inject 0.25 mg under the skin weekly. [facility] omeprazole 40 mg capsule 07-16 00:00: 00 Yes [id number] 40mg Take 1 capsule by mouth in the morning. [facility] ergocalcife rol, vitamin d2, 1,250 mcg (50,000 unit) capsule 07-16 00:00: 00 01-16 00:00 :00 No [id number] Take 1 capsule by mouth weekly. [facility] escitalopra m oxalate 20 mg tablet 07-16 00:00: 00 01-11 00:00 :00 No [id number] 20mg Take 1 tablet by mouth in the morning. [facility] mirabegron 50 mg tablet 07-14 13:55: 03 07-14 00:00 :00 No [id number] Take by mouth. [facility] liraglutide (VICTOZA 2-BHANU) 0.6 mg/0.1 mL (18 mg/3 mL) injection 07-14 13:54: 42 07-14 00:00 :00 No .6mg inject 0.6 mg under the skin in the morning. [facility] mometasone 0.1 % ointment 07-14 13:30: 22 Yes Apply to area(s) daily. [facility] tirzepatide (MOUNJARO) 2.5 mg/0.5 mL PnIj 07-14 00:00: 00 08-07 00:00 :00 No [id number] .25mg inject 0.25 mg under the skin weekly. [facility] ondansetron (ZOFRAN (PF)) injection 4 mg 07-03 20:44: 33 Yes 4mg 4 mg, Slow IV Push, PRN, 1 dose, Starting on Sun07/03/22 at 1544, Until Discontinu ed, Routine, Nausea and Vomiting (N/V), PACU [facility] FENTanyl PF (SUBLIMAZE (PF)) injection 25 mcg 07-03 20:44: 33 07-04 01:04 :58 No 25ug 25 mcg, Slow IV Push, Q5MIN PRN, 4 doses, Starting on Sun07/03/22 at 1544, Until Sun07/03/22 at 2004, Routine, Pain (scale 7-10), PACU [facility] ondansetron (ZOFRAN (PF)) injection 4 mg 07-03 20:44: 30 Yes 4mg 4 mg, Slow IV Push, Q4HPRN, 1 dose, Starting on Sun07/03/22 at 1544, Until Discontinu ed, Routine, Nausea and Vomiting (N/V), DSU Recovery [facility] traMADoL (ULTRAM) tablet 50 mg 07-03 20:44: 30 07-04 01:04 :58 No 50mg 50 mg, Oral, PRN, 1 dose, Starting on Sun07/03/22 at 1544, Until Sun07/03/22 at 2004, Routine, Pain (scale 7-10), DSU Recovery [facility] mirabegron 50 mg tablet 07-03 18:04: 58 Yes [id number] Take by mouth. [facility] liraglutide (VICTOZA 2-BHANU) 0.6 mg/0.1 mL (18 mg/3 mL) injection 07-03 18:04: 58 Yes .6mg inject 0.6 mg under the skin in the morning. [facility] mometasone 0.1 % ointment 07-03 18:04: 58 Yes Apply to area(s) daily. [facility] lidocaine (XYLOCAINE) 2 % jelly URO-JET 11 mL 16 01:00: 00 Yes [id number] 11mL [facility] mometasone 0.1 % ointment 04-11 15:02: 56 Yes Apply to area(s) daily. [facility] levoFLOXaci n (LEVAQUIN) tablet 500 mg 2021-02 22:45: 00 02-07 21:53 :00 No [id number] 500mg [facility] mometasone 0.1 % ointment 2021-02 14:27: 46 Yes Apply to area(s) daily. [facility] sulfamethox azole-trime thoprim (BACTRIM DS) 800-160 mg per tablet 2021-02 00:00: 00 02-13 05:59 :00 No [id number] 1{tbl} Take 1 tablet by mouth in the morning and 1 tablet in the evening. Do all this for 5 days. [facility] gentamicin 240 mg in NaCl 0.9% (NS) 100 mL IV infusion 2021-02 02:00: 00 01-20 02:26 :00 No 240mg 240 mg, IV Infusion, ONCE, 1 dose, On Ayesha 01/19/22 at 2000, Administer over 30 Minutes, 100 mL
Reas on for Anti-Infec tive: Empiric Therapy for Suspected Infection< br>Empiric Therapy Site: Pelvic
Duration of therapy: 5 days [facility] FENTanyl PF (SUBLIMAZE (PF)) injection 50 mcg 2021-02 01:15: 00 01-20 00:27 :00 No 50ug 50 mcg, Slow IV Push, ONCE, 1 dose, On Ayesha 01/19/22 at 1915, Routine [facility] lidocaine (XYLOCAINE) 2 % jelly URO-JET 10 mL 2021-02 00:16: 00 01-20 00:30 :00 No 10mL 10 mL, Urethral, ONCE, 1 dose, On Ayesha 01/19/22 at 1830, Routine [facility] ketorolac (TORADOL) injection 30 mg 2021-02 23:32: 00 01-19 23:35 :00 No 30mg 30 mg, Intramuscu lar, ONCE, 1 dose, On Ayesha 01/19/22 at 1745, Routine [facility] sulfamethox azole-trime thoprim 800-160 mg per tablet 2021-02 00:00: 00 09-13 00:00 :00 No [id number] 1{tbl} Take 1 tablet by mouth every 12 (twelve) hours. [facility] ergocalcife rol, vitamin d2, 1,250 mcg (50,000 unit) capsule 2021-02 00:00: 00 07-16 00:00 :00 No [id number] Take 1 capsule by mouth weekly. [facility] mometasone 0.1 % ointment 2021-02 11:11: 32 06-27 00:00 :00 No Apply to area(s) daily. [facility] oxybutynin (DITROPAN XL) 15 mg 24 hr tablet 2021-02 15:50: 21 01-13 00:00 :00 No [id number] 15mg Take 15 mg by mouth daily. [facility] mometasone 0.1 % ointment 2021-02 14:01: 52 Yes Apply to area(s) daily. [facility] metFORMIN (GLUCOPHAGE ) 500 mg tablet 2021-02 13:34: 20 01-13 00:00 :00 No [id number] 500mg Take 500 mg by mouth 2 (two) times daily with meals. [facility] liraglutide (VICTOZA 2-BHANU) 0.6 mg/0.1 mL (18 mg/3 mL) injection 2021-02 13:20: 52 Yes .6mg inject 0.6 mg under the skin in the morning. [facility] lisinopriL 5 mg tablet 2021-02 00:00: 00 09-13 00:00 :00 No [id number] 5mg Take 1 tablet by mouth in the morning. [facility] omeprazole 40 mg capsule 2021-02 00:00: 00 07-16 00:00 :00 No [id number] 40mg Take 1 capsule by mouth in the morning. [facility] escitalopra m oxalate 20 mg tablet 2021-02 00:00: 00 07-16 00:00 :00 No [id number] 20mg Take 1 tablet by mouth in the morning. [facility] mirabegron 50 mg tablet 2021-02 14:25: 45 Yes [id number] Take by mouth. [facility] oxybutynin (DITROPAN XL) 15 mg 24 hr tablet 2021-02 14:25: 45 Yes [id number] 15mg Take 15 mg by mouth daily. [facility] metFORMIN (GLUCOPHAGE ) 500 mg tablet 2021-02 14:25: 45 Yes [id number] 500mg Take 500 mg by mouth 2 (two) times daily with meals. [facility] liraglutide (VICTOZA 2-BHANU) 0.6 mg/0.1 mL (18 mg/3 mL) injection 2021-02 14:25: 45 Yes .6mg inject 0.6 mg under the skin in the morning. [facility] sennosides (SENOKOT) tablet 8.6 mg 2021-02 14:00: 00 Yes 8.6mg 8.6 mg, Oral, DAILY, First dose on 12/31/21 at 0900, Until Discontinu ed, Routine [facility] clindamycin in 5 % dextrose (CLEOCIN) 900 mg/50 mL IV piggyback RTU 900 mg 2021-02 11:00: 00 12-31 12:03 :00 No 900mg 900 mg, IV Piggyback, ONCE, 1 dose, On 12/31/21 at 0600, Administer over 30 Minutes, 50 mL
Reas on for Anti-Infec tive: Surgical Prophylaxi s
Surgi richard Prophylaxi s: Genitourin deni
Dur ation of therapy: within 24 hours of surgery
Restricte d use approved by: [employer]
research staff member approving Restricted medication : YANIRA OLIVER [facility] acetaminoph en (TYLENOL) tablet 650 mg 2021-02 05:00: 00 Yes 650mg 650 mg, Oral, Q6H, First dose on 12/31/21 at 0000, Until Discontinu ed, Routine [facility] tamsulosin (FLOMAX) capsule 0.4 mg 2021-02 01:00: 00 Yes .4mg 0.4 mg, Oral, DAILY, First dose on Sun12/30/21 at 2000, Until Discontinu ed, Routine [facility] gabapentin (NEURONTIN) capsule 300 mg 2021-02 01:00: 00 Yes 300mg 300 mg, Oral, TID, First dose on Sun12/30/21 at 2000, Until Discontinu ed, Routine [facility] tamsulosin 0.4 mg 24 hr capsule 2021-02 00:00: 00 03-27 00:00 :00 No [id number] .4mg Take 1 capsule by mouth in the morning. [facility] acetaminoph en (TYLENOL) 325 mg tablet 2021-02 00:00: 00 07-14 00:00 :00 No [id number] 325mg Take 1 tablet by mouth every 6 (six) hours as needed for Pain (scale 4-6). [facility] ibuprofen 200 mg tablet 2021-02 00:00: 00 07-14 00:00 :00 No [id number] 400mg Take 2 tablets by mouth every 6 (six) hours as needed for Pain (scale 1-3). [facility] gabapentin 300 mg capsule 2021-02 00:00: 00 07-14 00:00 :00 No [id number] 300mg Take 1 capsule by mouth every 8 (eight) hours as needed for Pain (scale 4-6). [facility] oxybutynin chloride 5 mg tablet 2021-02 00:00: 00 07-14 00:00 :00 No [id number] 5mg Take 1 tablet by mouth 3 (three) times daily as needed for Bladder spasms. [facility] sulfamethox azole-trime thoprim (BACTRIM DS) 800-160 mg per tablet 2021-02 00:00: 00 01-08 05:59 :00 No [id number] 1{tbl} Take 1 tablet by mouth in the morning and 1 tablet in the evening. Do all this for 7 days. [facility] lactated ringers IV infusion 1,000 mL 2021-02 23:30: 00 Yes 1000mL at 75 mL/hr, 1,000 mL, IV Infusion, CONTINUOUS , Starting on Sun12/30/21 at 1830, Until Discontinu ed, Routine, PACU [facility] oxybutynin chloride (DITROPAN) tablet 5 mg 2021-02 23:16: 24 Yes 5mg 5 mg, Oral, TIDPRN, Starting on Sun12/30/21 at 1816, Until Discontinu ed, Routine, Bladder spasms [facility] ketorolac (TORADOL) injection 30 mg 2021-02 23:13: 42 Yes 30mg 30 mg, Slow IV Push, Q6HPRN, 4 doses, Starting on Sun12/30/21 at 1813, Until Discontinu ed, Routine, Pain (scale 7-10) [facility] ondansetron (ZOFRAN (PF)) injection 4 mg 2021-02 23:09: 18 Yes 4mg 4 mg, Slow IV Push, Q4HPRN, Starting on Sun12/30/21 at 1809, Until Discontinu ed, Routine, Nausea and Vomiting (N/V) [facility] sodium chloride 0.9 % irrigation solution 2021-02 19:26: 00 12-31 00:17 :30 No PRN, Starting on Sun12/30/21 at 1426, Until Sun12/30/21 at 1917, Intra-op [facility] neomycin-po lymyxin B (NEOSPORIN G.U. IRRIGANT) 40 mg-200,000 unit/mL irrigation solution 2021-02 19:26: 00 12-31 00:17 :30 No PRN, Starting on Sun12/30/21 at 1426, Until Sun12/30/21 at 1917, Routine, Intra-op [facility] bupivacaine (preserv free) 0.5% (SENSORCAIN E MPF) 0.5 % (5 mg/mL) 20 mL, lidocaine-e pinephrine (XYLOCAINE W/EPINEPHRI NE) 2 %-1:200,000 20 mL 2021-02 19:25: 00 12-31 00:17 :30 No PRN, Starting on Sun12/30/21 at 1425, Intra-op [facility] lactated ringers IV infusion 1,000 mL 2021-02 15:15: 00 12-30 18:01 :00 No 1000mL at 42 mL/hr, 1,000 mL, IV Infusion, ONCE, 1 dose, On Sun12/30/21 at 1015, Routine, DSU Pre-op [facility] oxybutynin (DITROPAN XL) 15 mg 24 hr tablet 2021-02 08:58: 48 Yes [id number] 15mg Take 15 mg by mouth daily. [facility] metFORMIN (GLUCOPHAGE ) 500 mg tablet 2021-02 08:58: 48 Yes [id number] 500mg Take 500 mg by mouth 2 (two) times daily with meals. [facility] mirabegron 50 mg tablet 2021-02 08:58: 48 Yes [id number] Take by mouth. [facility] liraglutide (VICTOZA 2-BHANU) 0.6 mg/0.1 mL (18 mg/3 mL) injection 2021-02 08:58: 48 Yes .6mg inject 0.6 mg under the skin in the morning. [facility] cefUROXime 250 mg tablet 2021-02 00:00: 00 12-27 04:59 :00 No [id number] 250mg Take 1 tablet by mouth in the morning and 1 tablet in the evening. Do all this for 5 days. Start 5 days prior surgery [facility] estradioL (ESTRACE) 0.01 % (0.1 mg/gram) vaginal cream 11-25 00:00: 00 Yes [id number] Apply 1g vaginally at bedtime every night for 4 weeks [facility] liraglutide (VICTOZA 2-BHANU) 0.6 mg/0.1 mL (18 mg/3 mL) injection 11-22 09:18: 34 Yes .6mg inject 0.6 mg under the skin in the morning. [facility] lactated ringers IV infusion 1,000 mL 11-10 16:00: 00 Yes 1000mL at 100 mL/hr, 1,000 mL, IV Infusion, CONTINUOUS , Starting on Ayesha 11/10/21 at 1100, Until Discontinu ed, Routine, PACU [facility] metroNIDAZO LE in NaCl (iso-os) (FLAGYL I.V.) RTU IV infusion 500 mg 11-10 16:00: 00 Yes 500mg 500 mg, IV Piggyback, Q12H ABX, First dose on Ayesha 11/10/21 at 1100, Until Discontinu ed, Administer over 75 Minutes, 100 mL
Reas on for Anti-Infec tive: Surgical Prophylaxi s
Surgi richard Prophylaxi s: APPLE PACKING HEADER
Duration of therapy: within 24 hours of surgery [facility] HYDROmorphO ne (DILAUDID) injection 0.2 mg 11-10 15:47: 34 Yes .2mg 0.2 mg, Slow IV Push, Q5MIN PRN, 10 doses, Starting on Ayesha 11/10/21 at 1047, Until Discontinu ed, Routine, Pain (scale 7-10), PACU
Us e approved by (Faculty): PACU USE -ANESTHESI A SERVICE-HY DROMORPHON E INJECTIONS [facility] FENTanyl PF (SUBLIMAZE (PF)) injection 25 mcg 11-10 15:47: 34 Yes 25ug 25 mcg, Slow IV Push, Q5MIN PRN, 4 doses, Starting on Ayesha 11/10/21 at 1047, Until Discontinu ed, Routine, Pain (scale 4-6), PACU [facility] ondansetron (ZOFRAN (PF)) injection 4 mg 11-10 15:47: 34 Yes 4mg 4 mg, Slow IV Push, PRN, 1 dose, Starting on Ayesha 11/10/21 at 1047, Until Discontinu ed, Routine, Nausea and Vomiting (N/V), PACU [facility] conjugated estrogens (PREMARIN) vaginal cream 11-10 15:00: 00 11-10 16:28 :20 No PRN, Starting on Sun11/10/21 at 1000, Until Ayesha 11/10/21 at 1128, Routine, Intra-op [facility] NaCl 0.9% (NS) injection 11-10 14:48: 00 11-10 16:28 :20 No PRN, Starting on Ayesha 11/10/21 at 0948, Until Ayesha 11/10/21 at 1128, Routine, Intra-op [facility] clostridium botulinum toxin (BOTOX) injection 11-10 14:47: 00 11-10 16:28 :20 No PRN, Starting on Ayesha 11/10/21 at 0947, Until Ayesha 11/10/21 at 1128, Routine, Intra-op [facility] water for irrigation irrigation solution 11-10 14:44: 00 11-10 16:28 :20 No PRN, Starting on Ayesha 11/10/21 at 0944, Until Ayesha 11/10/21 at 1128, Routine, Intra-op [facility] lactated ringers IV infusion 1,000 mL 11-10 13:00: 00 11-10 13:20 :00 No 1000mL at 42 mL/hr, 1,000 mL, IV Infusion, ONCE, 1 dose, On [facility] 11/10/21 at 0800, Routine, DSU Pre-op [facility] oxybutynin (DITROPAN XL) 15 mg 24 hr tablet 11-10 11:59: 49 Yes [id number] 15mg Take 15 mg by mouth daily. [facility] metFORMIN (GLUCOPHAGE ) 500 mg tablet 11-10 11:59: 49 Yes [id number] 500mg Take 500 mg by mouth 2 (two) times daily with meals. [facility] mirabegron 50 mg tablet 11-10 11:59: 49 Yes [id number] Take by mouth. [facility] liraglutide (VICTOZA 2-BHANU) 0.6 mg/0.1 mL (18 mg/3 mL) injection 11-10 11:59: 49 Yes .6mg inject 0.6 mg under the skin in the morning. [facility] Nitrofurant oin&Nit. Macrocryst 100 mg capsule 11-10 00:00: 00 11-14 04:59 :00 No [id number] 100mg Take 1 capsule by mouth at bedtime for 3 days. [facility] metFORMIN (GLUCOPHAGE ) 500 mg tablet 11-07 09:17: 39 Yes [id number] 500mg Take 500 mg by mouth 2 (two) times daily with meals. [facility] lisinopril- hydrochloro thiazide (PRINZIDE,Z ESTORETIC) 10-12.5 mg per tablet 11-07 09:17: 15 11-07 00:00 :00 No [id number] 1{tbl} Take 1 tablet by mouth daily. [facility] oxybutynin (DITROPAN XL) 15 mg 24 hr tablet 11-07 09:15: 15 Yes [id number] 15mg Take 15 mg by mouth daily. [facility] mirabegron 50 mg tablet 11-07 09:15: 15 Yes [id number] Take by mouth. [facility] liraglutide (VICTOZA 2-BHANU) 0.6 mg/0.1 mL (18 mg/3 mL) injection 11-07 09:15: 15 Yes .6mg inject 0.6 mg under the skin in the morning. [facility] doxycycline hyclate 100 mg tablet 11-07 00:00: 00 Yes 100mg Take 1 tablet by mouth in the morning and 1 tablet in the evening. Take with meals. [facility] Nitrofurant oin&Nit. Macrocryst (MACROBID) 100 mg capsule 11-07 00:00: 00 11-11 04:59 :00 No [id number] 100mg Take 1 capsule by mouth at bedtime for 3 doses. 3 days after [facility] sulfamethox azole-trime thoprim 800-160 mg per tablet 11-07 00:00: 00 11-11 04:59 :00 No [id number] 1{tbl} Take 1 tablet by mouth in the morning and 1 tablet in the evening. Do all this for 3 days. [facility] fluticasone propionate 50 mcg/actuati on nasal spray 8-19 00:00: 00 03-27 00:00 :00 No 1{spray } Use 1 Rumsey in each nostril in the morning. [facility] lisinopriL 5 mg tablet -18 00:00: 00 01-13 00:00 :00 No 5mg Take 5 mg by mouth in the morning. [facility] escitalopra m oxalate 20 mg tablet - 00:00: 00 01-13 00:00 :00 No 20mg Take 20 mg by mouth in the morning. [facility] tolterodine 2 mg tablet 10-01 00:00: 00 Yes 2mg Take 1 tablet by mouth every morning and evening. [facility] Ketorolac Tromethamin e (TORADOL) 60 mg/2 mL 07-01 16:30: 00 07-01 16:40 :00 No [id number] 9105 60mg Ailyn Krishnan Liraglutide (Victoza) 18 MG/3ML subcutaneou s Solution Pen-injecto r 07-01 10:48: 55 Yes Ailyn Krishnan Tolterodine Tartrate 2 MG oral Tablet 07-01 10:48: 55 Yes 2mg Take 2 mg by mouth in the morning and 2 mg in the evening. Ailyn Krishnan Escitalopra m Oxalate 20 MG oral Tablet 15 00:00: 00 Yes 20mg Take 20 mg by mouth every morning Ailyn Krishnan Omeprazole 20 MG oral Delayed Release Capsule 06-07 00:00: 00 Yes 20mg Take 20 mg by mouth every morning Ailyn Krishnan Lisinopril 5 MG oral Tablet 06-07 00:00: 00 Yes 5mg Take 5 mg by mouth daily Ailyn Krishnan omeprazole 20 mg capsule 12 00:00: 00 01-13 00:00 :00 No 40mg Take 40 mg by mouth. [facility] nitrofurant oin (MACRODANTI N) 100 mg capsule 2015-02 00:00: 00 11-07 00:00 :00 No [id number] 100mg Take 1 capsule by mouth 2 (two) times daily. [facility] Immunizations Ordered Immunization Name Filled Immunization Name Date Status Comments Source SARS-COV-2 COVID-19 MODERNA 0.25ML BOOSTER VACCINE 2022-01-18 00:00:00 Completed [facility] SARS-COV-2 COVID-19 MODERNA 0.25ML BOOSTER VACCINE 2022-01-18 00:00:00 Completed [facility] SARS-COV-2 COVID-19 MODERNA 0.25ML BOOSTER VACCINE 2022-01-18 00:00:00 Completed [facility] SARS-COV-2 COVID-19 MODERNA 0.25ML BOOSTER VACCINE 2022-01-18 00:00:00 Completed [facility] SARS-COV-2 COVID-19 MODERNA 0.25ML BOOSTER VACCINE 2022-01-18 00:00:00 Completed [facility] SARS-COV-2 COVID-19 MODERNA 0.25ML BOOSTER VACCINE 2022-01-18 00:00:00 Completed [facility] SARS-COV-2 COVID-19 MODERNA 0.25ML BOOSTER VACCINE 2022-01-18 00:00:00 Completed [facility] SARS-COV-2 COVID-19 MODERNA 0.25ML BOOSTER VACCINE 2022-01-18 00:00:00 Completed [facility] SARS-COV-2 COVID-19 MODERNA 0.25ML BOOSTER VACCINE 2022-01-18 00:00:00 Completed [facility] SARS-COV-2 COVID-19 VACCINE - (MODERNA) 2021-10-23 00:00:00 Completed [facility] Influenza Virus Vaccine Recomb Quad IM, Preserv and ABX Free 18-64 YRS 2021-10-23 00:00:00 Completed [facility] SARS-COV-2 COVID-19 VACCINE - (MODERNA) 2021-10-23 00:00:00 Completed [facility] Influenza Virus Vaccine Recomb Quad IM, Preserv and ABX Free 18-64 YRS 2021-10-23 00:00:00 Completed [facility] SARS-COV-2 COVID-19 VACCINE - (MODERNA) 2021-10-23 00:00:00 Completed [facility] Influenza Virus Vaccine Recomb Quad IM, Preserv and ABX Free 18-64 YRS 2021-10-23 00:00:00 Completed [facility] SARS-COV-2 COVID-19 VACCINE - (MODERNA) 2021-10-23 00:00:00 Completed [facility] Influenza Virus Vaccine Recomb Quad IM, Preserv and ABX Free 18-64 YRS 2021-10-23 00:00:00 Completed [facility] SARS-COV-2 COVID-19 VACCINE - (MODERNA) 2021-10-23 00:00:00 Completed [facility] Influenza Virus Vaccine Recomb Quad IM, Preserv and ABX Free 18-64 YRS 2021-10-23 00:00:00 Completed [facility] SARS-COV-2 COVID-19 VACCINE - (MODERNA) 2021-10-23 00:00:00 Completed [facility] Influenza Virus Vaccine Recomb Quad IM, Preserv and ABX Free 18-64 YRS 2021-10-23 00:00:00 Completed [facility] SARS-COV-2 COVID-19 VACCINE - (MODERNA) 2021-10-23 00:00:00 Completed [facility] Influenza Virus Vaccine Recomb Quad IM, Preserv and ABX Free -64 YRS 2021-10-23 00:00:00 Completed [facility] SARS-COV-2 COVID-19 VACCINE - (MODERNA) 2021-10-23 00:00:00 Completed [facility] Influenza Virus Vaccine Recomb Quad IM, Preserv and ABX Free 18-64 YRS 2021-10-23 00:00:00 Completed [facility] SARS-COV-2 COVID-19 VACCINE - (MODERNA) 2021-10-23 00:00:00 Completed [facility] Influenza Virus Vaccine Recomb Quad IM, Preserv and ABX Free 18-64 YRS 2021-10-23 00:00:00 Completed [facility] SARS-COV-2 COVID-19 VACCINE - (MODERNA) 2021-10-23 00:00:00 Completed [facility] Influenza Virus Vaccine Recomb Quad IM, Preserv and ABX Free 18-64 YRS 2021-10-23 00:00:00 Completed [facility] SARS-COV-2 COVID-19 VACCINE - (MODERNA) 2021-10-23 00:00:00 Completed [facility] Influenza Virus Vaccine Recomb Quad IM, Preserv and ABX Free 18-64 YRS 2021-10-23 00:00:00 Completed [facility] SARS-COV-2 COVID-19 VACCINE - (MODERNA) 2021-10-23 00:00:00 Completed [facility] Influenza Virus Vaccine Recomb Quad IM, Preserv and ABX Free 18-64 YRS 2021-10-23 00:00:00 Completed [facility] SARS-COV-2 COVID-19 VACCINE - (MODERNA) 2021-10-23 00:00:00 Completed [facility] Influenza Virus Vaccine Recomb Quad IM, Preserv and ABX Free 18-64 YRS 2021-10-23 00:00:00 Completed [facility] SARS-COV-2 COVID-19 VACCINE - (MODERNA) 2021-10-23 00:00:00 Completed [facility] Influenza Virus Vaccine Recomb Quad IM, Preserv and ABX Free 18-64 YRS 2021-10-23 00:00:00 Completed [facility] SARS-COV-2 COVID-19 VACCINE - (MODERNA) 2021-10-23 00:00:00 Completed [facility] Influenza Virus Vaccine Recomb Quad IM, Preserv and ABX Free 18-64 YRS 2021-10-23 00:00:00 Completed [facility] SARS-COV-2 COVID-19 VACCINE - (MODERNA) 2021-10-23 00:00:00 Completed [facility] Influenza Virus Vaccine Recomb Quad IM, Preserv and ABX Free 18-64 YRS 2021-10-23 00:00:00 Completed [facility] SARS-COV-2 COVID-19 VACCINE - (MODERNA) 2021-10-23 00:00:00 Completed Influenza Virus Vaccine Recomb Quad IM, Preserv and ABX Free 18-64 YRS 2021-10-23 00:00:00 Completed Influenza Virus Vaccine 2021-10-23 00:00:00 Completed [facility] SARS-COV-2 COVID-19 VACCINE - (MODERNA) 2021-10-23 00:00:00 Completed Influenza Virus Vaccine Recomb Quad IM, Preserv and ABX Free 18-64 YRS 2021-10-23 00:00:00 Completed Influenza Virus Vaccine 2021-10-23 00:00:00 Completed [facility] SARS-COV-2 COVID-19 VACCINE - (MODERNA) 2021-10-23 00:00:00 Completed Influenza Virus Vaccine Recomb Quad IM, Preserv and ABX Free 18-64 YRS 2021-10-23 00:00:00 Completed Influenza Virus Vaccine 2021-10-23 00:00:00 Completed [facility] DTAP 2021-08-17 00:00:00 Completed [facility] DTAP 2021-08-17 00:00:00 Completed [facility] DTAP 2021-08-17 00:00:00 Completed [facility] DTAP 2021-08-17 00:00:00 Completed [facility] DTAP 2021-08-17 00:00:00 Completed [facility] DTAP 2021-08-17 00:00:00 Completed [facility] DTAP 2021-08-17 00:00:00 Completed [facility] DTAP 2021-08-17 00:00:00 Completed [facility] DTAP 2021-08-17 00:00:00 Completed [facility] DTAP 2021-08-17 00:00:00 Completed [facility] DTAP 2021-08-17 00:00:00 Completed [facility] DTAP 2021-08-17 00:00:00 Completed [facility] DTAP 2021-08-17 00:00:00 Completed [facility] DTAP 2021-08-17 00:00:00 Completed [facility] DTAP 2021-08-17 00:00:00 Completed [facility] DTAP 2021-08-17 00:00:00 Completed [facility] DTAP 2021-08-17 00:00:00 Completed [facility] DTAP 2021-08-17 00:00:00 Completed [facility] DTAP 2021-08-17 00:00:00 Completed [facility] DTAP 2021-08-17 00:00:00 Completed [facility] DTAP 2021-08-17 00:00:00 Completed [facility] DTAP 2021-08-17 00:00:00 Completed [facility] DTAP 2021-08-17 00:00:00 Completed [facility] DTAP 2021-08-17 00:00:00 Completed [facility] DTAP 2021-08-17 00:00:00 Completed [facility] DTAP 2021-08-17 00:00:00 Completed [facility] DTAP 2021-08-17 00:00:00 Completed [facility] DTAP 2021-08-17 00:00:00 Completed [facility] DTAP 2021-08-17 00:00:00 Completed [facility] DTAP 2021-08-17 00:00:00 Completed DTAP 2021-08-17 00:00:00 Completed DTAP 2021-08-17 00:00:00 Completed DTAP 2021-08-17 00:00:00 Completed [facility] DTAP 2021-08-17 00:00:00 Completed [facility] DTAP 2021-08-17 00:00:00 Completed [facility] DTAP 2021-08-17 00:00:00 Completed [facility] DTAP 2021-08-17 00:00:00 Completed [facility] SARS-COV-2 COVID-19 VACCINE - (MODERNA) 2021-02-18 00:00:00 Completed [facility] SARS-COV-2 COVID-19 VACCINE - (MODERNA) 2021-02-18 00:00:00 Completed [facility] SARS-COV-2 COVID-19 VACCINE - (MODERNA) 2021-02-18 00:00:00 Completed [facility] SARS-COV-2 COVID-19 VACCINE - (MODERNA) 2021-02-18 00:00:00 Completed [facility] SARS-COV-2 COVID-19 VACCINE - (MODERNA) 2021-02-18 00:00:00 Completed [facility] SARS-COV-2 COVID-19 VACCINE - (MODERNA) 2021-02-18 00:00:00 Completed [facility] SARS-COV-2 COVID-19 VACCINE - (MODERNA) 2021-02-18 00:00:00 Completed [facility] SARS-COV-2 COVID-19 VACCINE - (MODERNA) 2021-02-18 00:00:00 Completed [facility] SARS-COV-2 COVID-19 VACCINE - (MODERNA) 2021-02-18 00:00:00 Completed [facility] SARS-COV-2 COVID-19 VACCINE - (MODERNA) 2021-02-18 00:00:00 Completed [facility] SARS-COV-2 COVID-19 VACCINE - (MODERNA) 2021-02-18 00:00:00 Completed [facility] SARS-COV-2 COVID-19 VACCINE - (MODERNA) 2021-02-18 00:00:00 Completed [facility] SARS-COV-2 COVID-19 VACCINE - (MODERNA) 2021-02-18 00:00:00 Completed [facility] SARS-COV-2 COVID-19 VACCINE - (MODERNA) 2021-02-18 00:00:00 Completed [facility] SARS-COV-2 COVID-19 VACCINE - (MODERNA) 2021-02-18 00:00:00 Completed [facility] SARS-COV-2 COVID-19 VACCINE - (MODERNA) 2021-02-18 00:00:00 Completed [facility] SARS-COV-2 COVID-19 VACCINE - (MODERNA) 2021-02-18 00:00:00 Completed [facility] SARS-COV-2 COVID-19 VACCINE - (MODERNA) 2021-02-18 00:00:00 Completed [facility] SARS-COV-2 COVID-19 VACCINE - (MODERNA) 2021-02-18 00:00:00 Completed [facility] SARS-COV-2 COVID-19 VACCINE - (MODERNA) 2020-04-02 00:00:00 Completed [facility] SARS-COV-2 COVID-19 VACCINE - (MODERNA) 2020-04-02 00:00:00 Completed [facility] SARS-COV-2 COVID-19 VACCINE - (MODERNA) 2020-04-02 00:00:00 Completed [facility] SARS-COV-2 COVID-19 VACCINE - (MODERNA) 2020-04-02 00:00:00 Completed [facility] SARS-COV-2 COVID-19 VACCINE - (MODERNA) 2020-04-02 00:00:00 Completed [facility] SARS-COV-2 COVID-19 VACCINE - (MODERNA) 2020-04-02 00:00:00 Completed [facility] SARS-COV-2 COVID-19 VACCINE - (MODERNA) 2020-04-02 00:00:00 Completed [facility] SARS-COV-2 COVID-19 VACCINE - (MODERNA) 2020-04-02 00:00:00 Completed [facility] SARS-COV-2 COVID-19 VACCINE - (MODERNA) 2020-04-02 00:00:00 Completed [facility] SARS-COV-2 COVID-19 VACCINE - (MODERNA) 2020-04-02 00:00:00 Completed [facility] SARS-COV-2 COVID-19 VACCINE - (MODERNA) 2020-04-02 00:00:00 Completed [facility] SARS-COV-2 COVID-19 VACCINE - (MODERNA) 2020-04-02 00:00:00 Completed [facility] SARS-COV-2 COVID-19 VACCINE - (MODERNA) 2020-04-02 00:00:00 Completed [facility] SARS-COV-2 COVID-19 VACCINE - (MODERNA) 2020-04-02 00:00:00 Completed [facility] SARS-COV-2 COVID-19 VACCINE - (MODERNA) 2020-04-02 00:00:00 Completed [facility] SARS-COV-2 COVID-19 VACCINE - (MODERNA) 2020-04-02 00:00:00 Completed [facility] SARS-COV-2 COVID-19 VACCINE - (MODERNA) 2020-04-02 00:00:00 Completed SARS-COV-2 COVID-19 VACCINE - (MODERNA) 2020-04-02 00:00:00 Completed SARS-COV-2 COVID-19 VACCINE - (MODERNA) 2020-04-02 00:00:00 Completed SARS-COV-2 COVID-19 VACCINE - (MODERNA) 2020-03-05 00:00:00 Completed [facility] SARS-COV-2 COVID-19 VACCINE - (MODERNA) 2020-03-05 00:00:00 Completed [facility] SARS-COV-2 COVID-19 VACCINE - (MODERNA) 2020-03-05 00:00:00 Completed [facility] SARS-COV-2 COVID-19 VACCINE - (MODERNA) 2020-03-05 00:00:00 Completed [facility] SARS-COV-2 COVID-19 VACCINE - (MODERNA) 2020-03-05 00:00:00 Completed [facility] SARS-COV-2 COVID-19 VACCINE - (MODERNA) 2020-03-05 00:00:00 Completed [facility] SARS-COV-2 COVID-19 VACCINE - (MODERNA) 2020-03-05 00:00:00 Completed [facility] SARS-COV-2 COVID-19 VACCINE - (MODERNA) 2020-03-05 00:00:00 Completed [facility] SARS-COV-2 COVID-19 VACCINE - (MODERNA) 2020-03-05 00:00:00 Completed [facility] SARS-COV-2 COVID-19 VACCINE - (MODERNA) 2020-03-05 00:00:00 Completed [facility] SARS-COV-2 COVID-19 VACCINE - (MODERNA) 2020-03-05 00:00:00 Completed [facility] SARS-COV-2 COVID-19 VACCINE - (MODERNA) 2020-03-05 00:00:00 Completed [facility] SARS-COV-2 COVID-19 VACCINE - (MODERNA) 2020-03-05 00:00:00 Completed [facility] SARS-COV-2 COVID-19 VACCINE - (MODERNA) 2020-03-05 00:00:00 Completed [facility] SARS-COV-2 COVID-19 VACCINE - (MODERNA) 2020-03-05 00:00:00 Completed [facility] SARS-COV-2 COVID-19 VACCINE - (MODERNA) 2020-03-05 00:00:00 Completed [facility] SARS-COV-2 COVID-19 VACCINE - (MODERNA) 2020-03-05 00:00:00 Completed SARS-COV-2 COVID-19 VACCINE - (MODERNA) 2020-03-05 00:00:00 Completed SARS-COV-2 COVID-19 VACCINE - (MODERNA) 2020-03-05 00:00:00 Completed Zoster Vaccine Recombinant 2019-12-03 00:00:00 Completed [facility] Zoster Vaccine Recombinant 2019-12-03 00:00:00 Completed [facility] Zoster Vaccine Recombinant 2019-12-03 00:00:00 Completed [facility] Zoster Vaccine Recombinant 2019-12-03 00:00:00 Completed [facility] Zoster Vaccine Recombinant 2019-12-03 00:00:00 Completed [facility] Zoster Vaccine Recombinant 2019-12-03 00:00:00 Completed [facility] Zoster Vaccine Recombinant 2019-12-03 00:00:00 Completed [facility] Zoster Vaccine Recombinant 2019-12-03 00:00:00 Completed [facility] Zoster Vaccine Recombinant 2019-12-03 00:00:00 Completed [facility] Zoster Vaccine Recombinant 2019-12-03 00:00:00 Completed [facility] Zoster Vaccine Recombinant 2019-12-03 00:00:00 Completed [facility] Zoster Vaccine Recombinant 2019-12-03 00:00:00 Completed [facility] Zoster Vaccine Recombinant 2019-12-03 00:00:00 Completed [facility] Zoster Vaccine Recombinant 2019-12-03 00:00:00 Completed [facility] Zoster Vaccine Recombinant 2019-12-03 00:00:00 Completed [facility] Zoster Vaccine Recombinant 2019-12-03 00:00:00 Completed [facility] Zoster Vaccine Recombinant 2019-12-03 00:00:00 Completed [facility] Zoster Vaccine Recombinant 2019-12-03 00:00:00 Completed [facility] Zoster Vaccine Recombinant 2019-12-03 00:00:00 Completed [facility] Zoster Vaccine Recombinant 2019-12-03 00:00:00 Completed [facility] Zoster Vaccine Recombinant 2019-12-03 00:00:00 Completed [facility] Zoster Vaccine Recombinant 2019-12-03 00:00:00 Completed [facility] Zoster Vaccine Recombinant 2019-12-03 00:00:00 Completed [facility] Zoster Vaccine Recombinant 2019-12-03 00:00:00 Completed [facility] Zoster Vaccine Recombinant 2019-12-03 00:00:00 Completed [facility] Zoster Vaccine Recombinant 2019-12-03 00:00:00 Completed [facility] Zoster Vaccine Recombinant 2019-12-03 00:00:00 Completed [facility] Zoster Vaccine Recombinant 2019-12-03 00:00:00 Completed [facility] Zoster Vaccine Recombinant 2019-12-03 00:00:00 Completed [facility] Zoster Vaccine Recombinant 2019-12-03 00:00:00 Completed Zoster Vaccine Recombinant 2019-12-03 00:00:00 Completed Zoster Vaccine Recombinant 2019-12-03 00:00:00 Completed Zoster Vaccine Recombinant 2019-12-03 00:00:00 Completed [facility] Zoster Vaccine Recombinant 2019-12-03 00:00:00 Completed [facility] Zoster Vaccine Recombinant 2019-12-03 00:00:00 Completed [facility] Zoster Vaccine Recombinant 2019-12-03 00:00:00 Completed [facility] Zoster Vaccine Recombinant 2019-12-03 00:00:00 Completed [facility] Zoster Vaccine Recombinant 2019-10-08 00:00:00 Completed [facility] Zoster Vaccine Recombinant 2019-10-08 00:00:00 Completed [facility] Zoster Vaccine Recombinant 2019-10-08 00:00:00 Completed [facility] Zoster Vaccine Recombinant 2019-10-08 00:00:00 Completed [facility] Zoster Vaccine Recombinant 2019-10-08 00:00:00 Completed [facility] Zoster Vaccine Recombinant 2019-10-08 00:00:00 Completed [facility] Zoster Vaccine Recombinant 2019-10-08 00:00:00 Completed [facility] Zoster Vaccine Recombinant 2019-10-08 00:00:00 Completed [facility] Zoster Vaccine Recombinant 2019-10-08 00:00:00 Completed [facility] Zoster Vaccine Recombinant 2019-10-08 00:00:00 Completed [facility] Zoster Vaccine Recombinant 2019-10-08 00:00:00 Completed [facility] Zoster Vaccine Recombinant 2019-10-08 00:00:00 Completed [facility] Zoster Vaccine Recombinant 2019-10-08 00:00:00 Completed [facility] Zoster Vaccine Recombinant 2019-10-08 00:00:00 Completed [facility] Zoster Vaccine Recombinant 2019-10-08 00:00:00 Completed [facility] Zoster Vaccine Recombinant 2019-10-08 00:00:00 Completed [facility] Zoster Vaccine Recombinant 2019-10-08 00:00:00 Completed [facility] Zoster Vaccine Recombinant 2019-10-08 00:00:00 Completed [facility] Zoster Vaccine Recombinant 2019-10-08 00:00:00 Completed [facility] Zoster Vaccine Recombinant 2019-10-08 00:00:00 Completed [facility] Zoster Vaccine Recombinant 2019-10-08 00:00:00 Completed [facility] Zoster Vaccine Recombinant 2019-10-08 00:00:00 Completed [facility] Zoster Vaccine Recombinant 2019-10-08 00:00:00 Completed [facility] Zoster Vaccine Recombinant 2019-10-08 00:00:00 Completed [facility] Zoster Vaccine Recombinant 2019-10-08 00:00:00 Completed [facility] Zoster Vaccine Recombinant 2019-10-08 00:00:00 Completed [facility] Zoster Vaccine Recombinant 2019-10-08 00:00:00 Completed [facility] Zoster Vaccine Recombinant 2019-10-08 00:00:00 Completed [facility] Zoster Vaccine Recombinant 2019-10-08 00:00:00 Completed [facility] Zoster Vaccine Recombinant 2019-10-08 00:00:00 Completed Zoster Vaccine Recombinant 2019-10-08 00:00:00 Completed Zoster Vaccine Recombinant 2019-10-08 00:00:00 Completed Zoster Vaccine Recombinant 2019-10-08 00:00:00 Completed [facility] Zoster Vaccine Recombinant 2019-10-08 00:00:00 Completed [facility] Zoster Vaccine Recombinant 2019-10-08 00:00:00 Completed [facility] Zoster Vaccine Recombinant 2019-10-08 00:00:00 Completed [facility] Zoster Vaccine Recombinant 2019-10-08 00:00:00 Completed [facility] Td 2014-02-26 00:00:00 Completed [facility] Td 2014-02-26 00:00:00 Completed [facility] Td 2014-02-26 00:00:00 Completed [facility] Td 2014-02-26 00:00:00 Completed [facility] TD, NOS 2014-02-26 00:00:00 Completed [facility] TD, NOS 2014-02-26 00:00:00 Completed [facility] TD, NOS 2014-02-26 00:00:00 Completed [facility] TD, NOS 2014-02-26 00:00:00 Completed [facility] TD, NOS 2014-02-26 00:00:00 Completed [facility] TD, NOS 2014-02-26 00:00:00 Completed [facility] TD, NOS 2014-02-26 00:00:00 Completed [facility] TD, NOS 2014-02-26 00:00:00 Completed [facility] TD, NOS 2014-02-26 00:00:00 Completed [facility] TD, NOS 2014-02-26 00:00:00 Completed [facility] TD, NOS 2014-02-26 00:00:00 Completed [facility] TD, NOS 2014-02-26 00:00:00 Completed [facility] TD, NOS 2014-02-26 00:00:00 Completed [facility] TD, NOS 2014-02-26 00:00:00 Completed [facility] Td 2014-02-26 00:00:00 Completed [facility] TD, NOS 2014-02-26 00:00:00 Completed [facility] TD, NOS 2014-02-26 00:00:00 Completed [facility] TD, NOS 2014-02-26 00:00:00 Completed [facility] TD, NOS 2014-02-26 00:00:00 Completed [facility] TD, NOS 2014-02-26 00:00:00 Completed [facility] TD, NOS 2014-02-26 00:00:00 Completed [facility] TD, NOS 2014-02-26 00:00:00 Completed [facility] TD, NOS 2014-02-26 00:00:00 Completed [facility] Td 2014-02-26 00:00:00 Completed [facility] TD, NOS 2014-02-26 00:00:00 Completed [facility] TD, NOS 2014-02-26 00:00:00 Completed [facility] Td 2014-02-26 00:00:00 Completed [facility] Td 2014-02-26 00:00:00 Completed [facility] Td 2014-02-26 00:00:00 Completed [facility] Td 2014-02-26 00:00:00 Completed [facility] Td 2014-02-26 00:00:00 Completed [facility] TD, NOS 2014-02-26 00:00:00 Completed TDAP 2014-02-26 00:00:00 Completed TD, NOS 2014-02-26 00:00:00 Completed TDAP 2014-02-26 00:00:00 Completed TD, NOS 2014-02-26 00:00:00 Completed TDAP 2014-02-26 00:00:00 Completed Td 2014-02-26 00:00:00 Completed [facility] Td 2014-02-26 00:00:00 Completed [facility] Td 2014-02-26 00:00:00 Completed [facility] Td 2014-02-26 00:00:00 Completed [facility] Td 2014-02-26 00:00:00 Completed [facility] Td 2014-02-26 00:00:00 Completed [facility] Td 2014-02-26 00:00:00 Completed [facility] Td 2014-02-26 00:00:00 Completed [facility] Td 2014-02-26 00:00:00 Completed [facility] Td 2014-02-26 00:00:00 Completed [facility] Td 2014-02-26 00:00:00 Completed [facility] Td 2014-02-26 00:00:00 Completed [facility] Td 2014-02-26 00:00:00 Completed [facility] Td 2014-02-26 00:00:00 Completed [facility] Td 2014-02-26 00:00:00 Completed [facility] Td 2014-02-26 00:00:00 Completed [facility] Td 2014-02-26 00:00:00 Completed [facility] Tdap- (Boostrix, Adacel) 2014-02-26 00:00:00 Completed Ailyn Krishnan TD, NOS Unknown Completed [facility] DTAP Unknown Completed [facility] Zoster Vaccine Recombinant Unknown Completed [facility] SARS-COV-2 COVID-19 VACCINE - (MODERNA) Unknown Completed [facility] Influenza Virus Vaccine Recomb Quad IM, Preserv and ABX Free 18-64 YRS Unknown Completed [facility] TD, NOS Unknown Completed [facility] DTAP Unknown Completed [facility] Zoster Vaccine Recombinant Unknown Completed [facility] SARS-COV-2 COVID-19 VACCINE - (MODERNA) Unknown Completed [facility] Influenza Virus Vaccine Recomb Quad IM, Preserv and ABX Free 18-64 YRS Unknown Completed [facility] TD, NOS Unknown Completed [facility] DTAP Unknown Completed [facility] Zoster Vaccine Recombinant Unknown Completed [facility] SARS-COV-2 COVID-19 VACCINE - (MODERNA) Unknown Completed [facility] Influenza Virus Vaccine Recomb Quad IM, Preserv and ABX Free 18-64 YRS Unknown Completed [facility] TD, NOS Unknown Completed [facility] DTAP Unknown Completed [facility] Zoster Vaccine Recombinant Unknown Completed [facility] SARS-COV-2 COVID-19 VACCINE - (MODERNA) Unknown Completed [facility] Influenza Virus Vaccine Recomb Quad IM, Preserv and ABX Free 18-64 YRS Unknown Completed [facility] TD, NOS Unknown Completed [facility] DTAP Unknown Completed [facility] Zoster Vaccine Recombinant Unknown Completed [facility] SARS-COV-2 COVID-19 VACCINE - (MODERNA) Unknown Completed [facility] Influenza Virus Vaccine Recomb Quad IM, Preserv and ABX Free 18-64 YRS Unknown Completed [facility] TD, NOS Unknown Completed [facility] DTAP Unknown Completed [facility] Zoster Vaccine Recombinant Unknown Completed [facility] SARS-COV-2 COVID-19 VACCINE - (MODERNA) Unknown Completed [facility] Influenza Virus Vaccine Recomb Quad IM, Preserv and ABX Free 18-64 YRS Unknown Completed [facility] TD, NOS Unknown Completed [facility] DTAP Unknown Completed [facility] Zoster Vaccine Recombinant Unknown Completed [facility] SARS-COV-2 COVID-19 VACCINE - (MODERNA) Unknown Completed [facility] Influenza Virus Vaccine Recomb Quad IM, Preserv and ABX Free 18-64 YRS Unknown Completed [facility] Influenza Virus Vaccine Unknown Completed [facility] TDAP Unknown Completed [facility] TD, NOS Unknown Completed [facility] DTAP Unknown Completed [facility] Zoster Vaccine Recombinant Unknown Completed [facility] SARS-COV-2 COVID-19 VACCINE - (MODERNA) Unknown Completed [facility] Influenza Virus Vaccine Recomb Quad IM, Preserv and ABX Free 18-64 YRS Unknown Completed [facility] Influenza Virus Vaccine Unknown Completed [facility] TDAP Unknown Completed [facility] TD, NOS Unknown Completed [facility] DTAP Unknown Completed [facility] Zoster Vaccine Recombinant Unknown Completed [facility] SARS-COV-2 COVID-19 VACCINE - (MODERNA) Unknown Completed [facility] Influenza Virus Vaccine Recomb Quad IM, Preserv and ABX Free 18-64 YRS Unknown Completed [facility] Influenza Virus Vaccine Unknown Completed [facility] TDAP Unknown Completed [facility] TD, NOS Unknown Completed [facility] DTAP Unknown Completed [facility] Zoster Vaccine Recombinant Unknown Completed [facility] SARS-COV-2 COVID-19 VACCINE - (MODERNA) Unknown Completed [facility] Influenza Virus Vaccine Recomb Quad IM, Preserv and ABX Free 18-64 YRS Unknown Completed [facility] Influenza Virus Vaccine Unknown Completed [facility] TDAP Unknown Completed [facility] TD, NOS Unknown Completed [facility] DTAP Unknown Completed [facility] Influenza Virus Vaccine Recomb Quad IM, Preserv and ABX Free 18-64 YRS Unknown Completed [facility] Influenza Virus Vaccine Unknown Completed [facility] TDAP Unknown Completed [facility] Zoster Vaccine Recombinant Unknown Completed [facility] SARS-COV-2 COVID-19 VACCINE - (MODERNA) Unknown Completed [facility] TD, NOS Unknown Completed [facility] DTAP Unknown Completed [facility] Zoster Vaccine Recombinant Unknown Completed [facility] SARS-COV-2 COVID-19 VACCINE - (MODERNA) Unknown Completed [facility] Influenza Virus Vaccine Recomb Quad IM, Preserv and ABX Free 18-64 YRS Unknown Completed [facility] Influenza Virus Vaccine Unknown Completed [facility] TDAP Unknown Completed [facility] TD, NOS Unknown Completed [facility] DTAP Unknown Completed [facility] Zoster Vaccine Recombinant Unknown Completed [facility] SARS-COV-2 COVID-19 VACCINE - (MODERNA) Unknown Completed [facility] Influenza Virus Vaccine Recomb Quad IM, Preserv and ABX Free 18-64 YRS Unknown Completed [facility] Influenza Virus Vaccine Unknown Completed [facility] TDAP Unknown Completed [facility] TD, NOS Unknown Completed [facility] DTAP Unknown Completed [facility] Zoster Vaccine Recombinant Unknown Completed [facility] SARS-COV-2 COVID-19 VACCINE - (MODERNA) Unknown Completed [facility] Influenza Virus Vaccine Recomb Quad IM, Preserv and ABX Free 18-64 YRS Unknown Completed [facility] Influenza Virus Vaccine Unknown Completed [facility] TDAP Unknown Completed [facility] TD, NOS Unknown Completed [facility] DTAP Unknown Completed [facility] Zoster Vaccine Recombinant Unknown Completed [facility] SARS-COV-2 COVID-19 VACCINE - (MODERNA) Unknown Completed [facility] Influenza Virus Vaccine Recomb Quad IM, Preserv and ABX Free 18-64 YRS Unknown Completed [facility] Influenza Virus Vaccine Unknown Completed [facility] TDAP Unknown Completed [facility] TD, NOS Unknown Completed [facility] DTAP Unknown Completed [facility] Zoster Vaccine Recombinant Unknown Completed [facility] SARS-COV-2 COVID-19 VACCINE - (MODERNA) Unknown Completed [facility] Influenza Virus Vaccine Recomb Quad IM, Preserv and ABX Free 18-64 YRS Unknown Completed [facility] Influenza Virus Vaccine Unknown Completed [facility] TDAP Unknown Completed [facility] TD, NOS Unknown Completed [facility] DTAP Unknown Completed [facility] Zoster Vaccine Recombinant Unknown Completed [facility] SARS-COV-2 COVID-19 VACCINE - (MODERNA) Unknown Completed [facility] Influenza Virus Vaccine Recomb Quad IM, Preserv and ABX Free 18-64 YRS Unknown Completed [facility] Influenza Virus Vaccine Unknown Completed [facility] TDAP Unknown Completed [facility] TD, NOS Unknown Completed [facility] DTAP Unknown Completed [facility] Zoster Vaccine Recombinant Unknown Completed [facility] SARS-COV-2 COVID-19 VACCINE - (MODERNA) Unknown Completed [facility] Influenza Virus Vaccine Recomb Quad IM, Preserv and ABX Free 18-64 YRS Unknown Completed [facility] Influenza Virus Vaccine Unknown Completed [facility] TDAP Unknown Completed [facility] TD, NOS Unknown Completed [facility] DTAP Unknown Completed [facility] Zoster Vaccine Recombinant Unknown Completed [facility] SARS-COV-2 COVID-19 VACCINE - (MODERNA) Unknown Completed [facility] Influenza Virus Vaccine Recomb Quad IM, Preserv and ABX Free 18-64 YRS Unknown Completed [facility] Influenza Virus Vaccine Unknown Completed [facility] TDAP Unknown Completed [facility] TD, NOS Unknown Completed [facility] DTAP Unknown Completed [facility] Zoster Vaccine Recombinant Unknown Completed [facility] SARS-COV-2 COVID-19 VACCINE - (MODERNA) Unknown Completed [facility] Influenza Virus Vaccine Recomb Quad IM, Preserv and ABX Free 18-64 YRS Unknown Completed [facility] Influenza Virus Vaccine Unknown Completed [facility] TDAP Unknown Completed [facility] TD, NOS Unknown Completed [facility] DTAP Unknown Completed [facility] Zoster Vaccine Recombinant Unknown Completed [facility] SARS-COV-2 COVID-19 VACCINE - (MODERNA) Unknown Completed [facility] Influenza Virus Vaccine Recomb Quad IM, Preserv and ABX Free 18-64 YRS Unknown Completed [facility] Influenza Virus Vaccine Unknown Completed [facility] TDAP Unknown Completed [facility] TD, NOS Unknown Completed [facility] DTAP Unknown Completed [facility] Zoster Vaccine Recombinant Unknown Completed [facility] SARS-COV-2 COVID-19 VACCINE - (MODERNA) Unknown Completed [facility] Influenza Virus Vaccine Recomb Quad IM, Preserv and ABX Free 18-64 YRS Unknown Completed [facility] Influenza Virus Vaccine Unknown Completed [facility] TDAP Unknown Completed [facility] TD, NOS Unknown Completed [facility] DTAP Unknown Completed [facility] Zoster Vaccine Recombinant Unknown Completed [facility] SARS-COV-2 COVID-19 VACCINE - (MODERNA) Unknown Completed [facility] Influenza Virus Vaccine Recomb Quad IM, Preserv and ABX Free 18-64 YRS Unknown Completed [facility] Influenza Virus Vaccine Unknown Completed [facility] TDAP Unknown Completed [facility] TD, NOS Unknown Completed [facility] DTAP Unknown Completed [facility] Zoster Vaccine Recombinant Unknown Completed [facility] SARS-COV-2 COVID-19 VACCINE - (MODERNA) Unknown Completed [facility] Influenza Virus Vaccine Recomb Quad IM, Preserv and ABX Free 18-64 YRS Unknown Completed [facility] Influenza Virus Vaccine Unknown Completed [facility] TDAP Unknown Completed [facility] TD, NOS Unknown Completed [facility] DTAP Unknown Completed [facility] Zoster Vaccine Recombinant Unknown Completed [facility] SARS-COV-2 COVID-19 VACCINE - (MODERNA) Unknown Completed [facility] Influenza Virus Vaccine Recomb Quad IM, Preserv and ABX Free 18-64 YRS Unknown Completed [facility] Influenza Virus Vaccine Unknown Completed [facility] TDAP Unknown Completed [facility] TD, NOS Unknown Completed [facility] DTAP Unknown Completed [facility] Zoster Vaccine Recombinant Unknown Completed [facility] SARS-COV-2 COVID-19 VACCINE - (MODERNA) Unknown Completed [facility] Influenza Virus Vaccine Recomb Quad IM, Preserv and ABX Free 18-64 YRS Unknown Completed [facility] Influenza Virus Vaccine Unknown Completed [facility] TDAP Unknown Completed [facility] TD, NOS Unknown Completed [facility] DTAP Unknown Completed [facility] Zoster Vaccine Recombinant Unknown Completed [facility] SARS-COV-2 COVID-19 VACCINE - (MODERNA) Unknown Completed [facility] Influenza Virus Vaccine Recomb Quad IM, Preserv and ABX Free 18-64 YRS Unknown Completed [facility] Influenza Virus Vaccine Unknown Completed [facility] TDAP Unknown Completed [facility] TD, NOS Unknown Completed [facility] DTAP Unknown Completed [facility] Zoster Vaccine Recombinant Unknown Completed [facility] SARS-COV-2 COVID-19 VACCINE - (MODERNA) Unknown Completed [facility] Influenza Virus Vaccine Recomb Quad IM, Preserv and ABX Free 18-64 YRS Unknown Completed [facility] Influenza Virus Vaccine Unknown Completed [facility] TDAP Unknown Completed [facility] TD, NOS Unknown Completed [facility] DTAP Unknown Completed [facility] Zoster Vaccine Recombinant Unknown Completed [facility] SARS-COV-2 COVID-19 VACCINE - (MODERNA) Unknown Completed [facility] Influenza Virus Vaccine Recomb Quad IM, Preserv and ABX Free 18-64 YRS Unknown Completed [facility] Influenza Virus Vaccine Unknown Completed [facility] TDAP Unknown Completed [facility] TD, NOS Unknown Completed [facility] DTAP Unknown [facility] [facility] Recombinant Unknown Completed [facility] SARS-COV-2 COVID-19 VACCINE - (MODERNA) [facility] Recomb Quad IM, Preserv and ABX Free 18-64 YRS Unknown Completed [facility] Influenza Virus Vaccine Unknown Completed [facility] TDAP Unknown Completed [facility] TD, NOS Unknown Completed [facility] DTAP Unknown Completed [facility] Zoster Vaccine Recombinant Unknown Completed [facility] SARS-COV-2 COVID-19 VACCINE - (MODERNA) Unknown Completed [facility] Influenza Virus Vaccine Recomb Quad IM, Preserv and ABX Free 18-64 YRS Unknown Completed [facility] Influenza Virus Vaccine Unknown Completed [facility] TDAP Unknown Completed [facility] TD, NOS Unknown Completed [facility] DTAP Unknown Completed [facility] Zoster Vaccine Recombinant Unknown Completed [facility] SARS-COV-2 COVID-19 VACCINE - (MODERNA) Unknown Completed [facility] Influenza Virus Vaccine Recomb Quad IM, Preserv and ABX Free 18-64 YRS Unknown Completed [facility] Influenza Virus Vaccine Unknown Completed [facility] TDAP Unknown Completed [facility] TD, NOS Unknown Completed [facility] DTAP Unknown Completed [facility] Zoster Vaccine Recombinant Unknown Completed [facility] SARS-COV-2 COVID-19 VACCINE - (MODERNA) Unknown Completed [facility] Influenza Virus Vaccine Recomb Quad IM, Preserv and ABX Free 18-64 YRS Unknown Completed [facility] Influenza Virus Vaccine Unknown Completed [facility] TDAP Unknown Completed [facility] TD, NOS Unknown Completed [facility] DTAP Unknown Completed [facility] Zoster Vaccine Recombinant Unknown Completed [facility] SARS-COV-2 COVID-19 VACCINE - (MODERNA) Unknown Completed [facility] Influenza Virus Vaccine Recomb Quad IM, Preserv and ABX Free 18-64 YRS Unknown Completed [facility] Influenza Virus Vaccine Unknown Completed [facility] TDAP Unknown Completed [facility] TD, NOS Unknown Completed [facility] DTAP Unknown Completed [facility] Zoster Vaccine Recombinant Unknown Completed [facility] SARS-COV-2 COVID-19 VACCINE - (MODERNA) Unknown Completed [facility] Influenza Virus Vaccine Recomb Quad IM, Preserv and ABX Free 18-64 YRS Unknown Completed [facility] Influenza Virus Vaccine Unknown Completed [facility] TDAP Unknown Completed [facility] TD, NOS Unknown Completed [facility] DTAP Unknown Completed [facility] Zoster Vaccine Recombinant Unknown Completed [facility] SARS-COV-2 COVID-19 VACCINE - (MODERNA) Unknown [facility]pleted [facility] Influenza Virus Vaccine Recomb Quad IM, Preserv and ABX Free 18-64 YRS Unknown Completed [facility] Influenza Virus Vaccine Unknown Completed [facility] TDAP Unknown Completed [facility] TD, NOS Unknown Completed [facility] DTAP Unknown Completed [facility] Zoster Vaccine Recombinant Unknown Completed [facility] SARS-COV-2 COVID-19 VACCINE - (MODERNA) Unknown Completed [facility] Influenza Virus Vaccine Recomb Quad IM, Preserv and ABX Free 18-64 YRS Unknown Completed [facility] Influenza Virus Vaccine Unknown Completed [facility] TDAP Unknown Completed [facility] TD, NOS Unknown Completed [facility] DTAP Unknown Completed [facility] Zoster Vaccine Recombinant Unknown Completed [facility] SARS-COV-2 COVID-19 MODERNA 0.25ML BOOSTER VACCINE Unknown Completed [facility] Influenza Virus Vaccine Recomb Quad IM, Preserv and ABX Free 18-64 YRS Unknown Completed [facility] Influenza Virus Vaccine Unknown Completed [facility] TDAP Unknown Completed [facility] TD, NOS Unknown Completed [facility] DTAP Unknown Completed [facility] Zoster Vaccine Recombinant Unknown Completed [facility] SARS-COV-2 COVID-19 MODERNA 0.25ML BOOSTER VACCINE Unknown Completed [facility] Influenza Virus Vaccine Recomb Quad IM, Preserv and ABX Free 18-64 YRS Unknown Completed [facility] Influenza Virus Vaccine Unknown Completed [facility] TDAP Unknown Completed [facility] Vital Signs Vital Name Observation Time Observation Value Comments S ource Systolic blood pressure 2024-06-26 13:44:00 91 mm[Hg] [facility] Diastolic blood pressure 2024-06-26 13:44:00 60 mm[Hg] [facility] Heart rate 2024-06-26 13:44:00 80 /min [facility] Body height 2024-06-26 13:44:00 157.5 cm [facility] Body weight 2024-06-26 13:44:00 74.163 kg [facility] BMI 2024-06-26 13:44:00 29.90 kg/m2 [facility] Oxygen saturation in Arterial blood by Pulse oximetry 2024-06-26 13:44:00 97 /min [facility] Systolic blood pressure 2023-12-10 20:37:00 105 mm[Hg] [facility] Diastolic blood pressure 2023-12-10 20:37:00 69 mm[Hg] [facility] Heart rate 2023-12-10 20:37:00 76 /min [facility] Body temperature 2023-12-10 20:37:00 36.72 Nahomi [facility] Respiratory rate 2023-12-10 20:37:00 18 /min [facility] Body height 2023-12-10 20:37:00 160 cm [facility] Body weight 2023-12-10 20:37:00 83.008 kg [facility] BMI 2023-12-10 20:37:00 32.42 kg/m2 [facility] Oxygen saturation in Arterial blood by Pulse oximetry 2023-12-10 20:37:00 97 /min [facility] Systolic blood pressure 2023-10-15 14:03:00 94 mm[Hg] [facility] Diastolic blood pressure 2023-10-15 14:03:00 64 mm[Hg] [facility] Heart rate 2023-10-15 14:03:00 70 /min [facility] Body temperature 2023-10-15 14:03:00 36.61 Nahomi [facility] Body height 2023-10-15 14:03:00 157.5 cm [facility] Body weight 2023-10-15 14:03:00 88.451 kg [facility] BMI 2023-10-15 14:03:00 35.67 kg/m2 [facility] Oxygen saturation in Arterial blood by Pulse oximetry 2023-10-15 14:03:00 100 /min [facility] Systolic blood pressure 2023-09-05 21:28:00 95 mm[Hg] [facility] Diastolic blood pressure 2023-09-05 21:28:00 62 mm[Hg] [facility] Heart rate 2023-09-05 21:28:00 71 /min [facility] Body temperature 2023-09-05 21:28:00 36.72 Nahomi [facility] Respiratory rate 2023-09-05 21:28:00 18 /min [facility] Body height 2023-09-05 21:28:00 157.5 cm [facility] Body weight 2023-09-05 21:28:00 88.905 kg [facility] BMI 2023-09-05 21:28:00 35.85 kg/m2 [facility] Oxygen saturation in Arterial blood by Pulse oximetry 2023-09-05 21:28:00 98 /min [facility] Systolic blood pressure 2023-08-20 20:36:00 92 mm[Hg] [facility] Diastolic blood pressure 2023-08-20 20:36:00 70 mm[Hg] [facility] Heart rate 2023-08-20 20:36:00 82 /min [facility] Body temperature 2023-08-20 20:35:00 36.83 Nahomi [facility] Respiratory rate 2023-08-20 20:35:00 16 /min [facility] Body height 2023-08-20 20:35:00 157.5 cm [facility] Body weight 2023-08-20 20:35:00 91.173 kg [facility] BMI 2023-08-20 20:35:00 36.76 kg/m2 [facility] Oxygen saturation in Arterial blood by Pulse oximetry 2023-08-20 20:35:00 97 /min [facility] Systolic blood pressure 2023-06-28 18:46:00 107 mm[Hg] [facility] Diastolic blood pressure 2023-06-28 18:46:00 70 mm[Hg] [facility] Heart rate 2023-06-28 18:46:00 73 /min [facility] Body height 2023-06-28 18:46:00 157.5 cm [facility] Body weight 2023-06-28 18:46:00 94.484 kg [facility] BMI 2023-06-28 18:46:00 38.10 kg/m2 [facility] Oxygen saturation in Arterial blood by Pulse oximetry 2023-06-28 18:46:00 98 /min [facility] Systolic blood pressure 2023-03-27 21:51:00 130 mm[Hg] [facility] Diastolic blood pressure 2023-03-27 21:51:00 68 mm[Hg] [facility] Heart rate 2023-03-27 21:50:00 82 /min [facility] Body temperature 2023-03-27 21:50:00 36.17 Nahomi [facility] Body height 2023-03-27 21:50:00 157.5 cm [facility] Body weight 2023-03-27 21:50:00 108.682 kg [facility] BMI 2023-03-27 21:50:00 43.82 kg/m2 [facility] Oxygen saturation in Arterial blood by Pulse oximetry 2023-03-27 21:50:00 97 /min [facility] Systolic blood pressure 2023-03-06 21:40:00 103 mm[Hg] [facility] Diastolic blood pressure 2023-03-06 21:40:00 71 mm[Hg] [facility] Heart rate 2023-03-06 21:40:00 71 /min [facility] Respiratory rate 2023-03-06 21:40:00 18 /min [facility] Body height 2023-03-06 21:40:00 157.5 cm [facility] Body weight 2023-03-06 21:40:00 99.02 kg [facility] BMI 2023-03-06 21:40:00 39.93 kg/m2 [facility] Oxygen saturation in Arterial blood by Pulse oximetry 2023-03-06 21:40:00 98 /min [facility] Systolic blood pressure 2023-03-04 16:57:00 132 mm[Hg] [facility] Diastolic blood pressure 2023-03-04 16:57:00 81 mm[Hg] [facility] Heart rate 2023-03-04 16:57:00 95 /min [facility] Body temperature 2023-03-04 16:57:00 37.89 Nahomi [facility] Respiratory rate 2023-03-04 16:57:00 19 /min [facility] Body height 2023-03-04 16:57:00 157.5 cm [facility] Body weight 2023-03-04 16:57:00 98.884 kg [facility] BMI 2023-03-04 16:57:00 39.87 kg/m2 [facility] Oxygen saturation in Arterial blood by Pulse oximetry 2023-03-04 16:57:00 96 /min [facility] Systolic blood pressure 2022-10-17 13:22:00 103 mm[Hg] [facility] Diastolic blood pressure 2022-10-17 13:22:00 68 mm[Hg] [facility] Heart rate 2022-10-17 13:22:00 59 /min [facility] Body temperature 2022-10-17 13:22:00 36.67 Nahomi [facility] Respiratory rate 2022-10-17 13:22:00 12 /min [facility] Body height 2022-10-17 13:22:00 157.5 cm [facility] Body weight 2022-10-17 13:22:00 98.113 kg [facility] BMI 2022-10-17 13:22:00 39.56 kg/m2 [facility] Oxygen saturation in Arterial blood by Pulse oximetry 2022-10-17 13:22:00 99 /min [facility] Systolic blood pressure 2022-08-10 19:35:00 104 mm[Hg] [facility] Diastolic blood pressure 2022-08-10 19:35:00 66 mm[Hg] [facility] Heart rate 2022-08-10 19:35:00 66 /min [facility] Body temperature 2022-08-10 19:35:00 36.61 Nahomi [facility] Respiratory rate 2022-08-10 19:35:00 16 /min [facility] Body height 2022-08-10 19:35:00 158.5 cm [facility] Body weight 2022-08-10 19:35:00 97.07 kg [facility] BMI 2022-08-10 19:35:00 38.64 kg/m2 [facility] Oxygen saturation in Arterial blood by Pulse oximetry 2022-08-10 19:35:00 98 /min [facility] Systolic blood pressure 2022-07-14 18:30:00 104 mm[Hg] [facility] Diastolic blood pressure 2022-07-14 18:30:00 71 mm[Hg] [facility] Heart rate 2022-07-14 18:30:00 72 /min [facility] Respiratory rate 2022-07-14 18:30:00 20 /min [facility] Body height 2022-07-14 18:30:00 158.5 cm [facility] Body weight 2022-07-14 18:30:00 97.251 kg [facility] BMI 2022-07-14 18:30:00 38.71 kg/m2 [facility] Oxygen saturation in Arterial blood by Pulse oximetry 2022-07-14 18:30:00 98 /min [facility] Systolic blood pressure 2022-07-03 22:45:00 125 mm[Hg] [facility] Diastolic blood pressure 2022-07-03 22:45:00 68 mm[Hg] [facility] Heart rate 2022-07-03 22:45:00 54 /min [facility] Respiratory rate 2022-07-03 22:45:00 19 /min [facility] Oxygen saturation in Arterial blood by Pulse oximetry 2022-07-03 22:45:00 95 /min [facility] Body temperature 2022-07-03 20:45:00 36.44 Nahomi [facility] Body height 2022-07-03 17:01:00 157.5 cm [facility] Body weight 2022-07-03 17:01:00 99.791 kg [facility] BMI 2022-07-03 17:01:00 40.24 kg/m2 [facility] Systolic blood pressure 2022-07-03 17:01:00 157 mm[Hg] [facility] Diastolic blood pressure 2022-07-03 17:01:00 82 mm[Hg] [facility] Heart rate 2022-07-03 17:01:00 62 /min [facility] Body temperature 2022-07-03 17:01:00 36.72 Nahomi [facility] Respiratory rate 2022-07-03 17:01:00 16 /min [facility] Body height 2022-07-03 17:01:00 157.5 cm [facility] Body weight 2022-07-03 17:01:00 99.791 kg [facility] BMI 2022-07-03 17:01:00 40.24 kg/m2 [facility] Oxygen saturation in Arterial blood by Pulse oximetry 2022-07-03 17:01:00 98 /min [facility] Systolic blood pressure 2022-05-10 18:07:00 101 mm[Hg] [facility] Diastolic blood pressure 2022-05-10 18:07:00 65 mm[Hg] [facility] Heart rate 2022-05-10 18:07:00 59 /min [facility] Body temperature 2022-05-10 18:07:00 36.61 Nahomi [facility] Respiratory rate 2022-05-10 18:07:00 12 /min [facility] Body height 2022-05-10 18:07:00 157.5 cm [facility] Body weight 2022-05-10 18:07:00 95.255 kg [facility] BMI 2022-05-10 18:07:00 38.41 kg/m2 [facility] Oxygen saturation in Arterial blood by Pulse oximetry 2022-05-10 18:07:00 98 /min [facility] Systolic blood pressure 2022-04-11 21:06:00 122 mm[Hg] [facility] Diastolic blood pressure 2022-04-11 21:06:00 79 mm[Hg] [facility] Heart rate 2022-04-11 21:06:00 59 /min [facility] Respiratory rate 2022-04-11 21:06:00 14 /min [facility] Body height 2022-04-11 21:06:00 157.5 cm [facility] Body weight 2022-04-11 21:06:00 95.301 kg [facility] BMI 2022-04-11 21:06:00 38.43 kg/m2 [facility] Oxygen saturation in Arterial blood by Pulse oximetry 2022-04-11 21:06:00 100 /min [facility] Systolic blood pressure 2022-02-07 20:15:00 104 mm[Hg] [facility] Diastolic blood pressure 2022-02-07 20:15:00 64 mm[Hg] [facility] Heart rate 2022-02-07 20:15:00 72 /min [facility] Body height 2022-02-07 20:15:00 157.5 cm [facility] Body weight 2022-02-07 20:15:00 92.851 kg [facility] BMI 2022-02-07 20:15:00 37.44 kg/m2 [facility] Systolic blood pressure 2022-01-20 02:39:09 120 mm[Hg] [facility] Diastolic blood pressure 2022-01-20 02:39:09 70 mm[Hg] [facility] Heart rate 2022-01-20 02:39:09 78 /min [facility] Respiratory rate 2022-01-20 02:39:09 17 /min [facility] Oxygen saturation in Arterial blood by Pulse oximetry 2022-01-20 02:39:09 99 /min [facility] Body temperature 2022-01-19 23:00:00 36.56 Nahomi [facility] Body weight 2022-01-19 23:00:00 93.895 kg [facility] BMI 2022-01-19 23:00:00 37.86 kg/m2 [facility] Systolic blood pressure 2022-01-17 17:08:00 108 mm[Hg] [facility] Diastolic blood pressure 2022-01-17 17:08:00 74 mm[Hg] [facility] Heart rate 2022-01-17 17:08:00 63 /min [facility] Respiratory rate 2022-01-17 17:08:00 18 /min [facility] Body height 2022-01-17 17:08:00 157.5 cm [facility] Body weight 2022-01-17 17:08:00 93.94 kg [facility] BMI 2022-01-17 17:08:00 37.88 kg/m2 [facility] Oxygen saturation in Arterial blood by Pulse oximetry 2022-01-17 17:08:00 100 /min [facility] Systolic blood pressure 2022-01-13 19:02:00 115 mm[Hg] [facility] Diastolic blood pressure 2022-01-13 19:02:00 78 mm[Hg] [facility] Heart rate 2022-01-13 19:02:00 70 /min [facility] Body height 2022-01-13 19:02:00 157.5 cm [facility] Body weight 2022-01-13 19:02:00 93.441 kg [facility] BMI 2022-01-13 19:02:00 37.68 kg/m2 [facility] Oxygen saturation in Arterial blood by Pulse oximetry 2022-01-13 19:02:00 100 /min [facility] Systolic blood pressure 2021-12-31 16:28:00 93 mm[Hg] [facility] Diastolic blood pressure 2021-12-31 16:28:00 50 mm[Hg] [facility] Heart rate 2021-12-31 16:28:00 76 /min [facility] Body temperature 2021-12-31 16:28:00 36.67 Nahomi [facility] Respiratory rate 2021-12-31 16:28:00 18 /min [facility] Oxygen saturation in Arterial blood by Pulse oximetry 2021-12-31 16:28:00 96 /min [facility] Body height 2021-12-31 00:49:00 157.5 cm [facility] Body weight 2021-12-31 00:49:00 90.719 kg [facility] BMI 2021-12-31 00:49:00 36.58 kg/m2 [facility] Systolic blood pressure 2021-12-30 17:38:00 119 mm[Hg] [facility] Diastolic blood pressure 2021-12-30 17:38:00 69 mm[Hg] [facility] Heart rate 2021-12-30 17:38:00 59 /min [facility] Body temperature 2021-12-30 17:38:00 36.06 Nahomi [facility] Respiratory rate 2021-12-30 17:38:00 16 /min [facility] Body height 2021-12-30 17:38:00 157.5 cm [facility] Body weight 2021-12-30 17:38:00 90.719 kg [facility] BMI 2021-12-30 17:38:00 36.58 kg/m2 [facility] Oxygen saturation in Arterial blood by Pulse oximetry 2021-12-30 17:38:00 97 /min [facility] Systolic blood pressure 2021-11-25 20:08:00 105 mm[Hg] [facility] Diastolic blood pressure 2021-11-25 20:08:00 72 mm[Hg] [facility] Heart rate 2021-11-25 20:08:00 83 /min [facility] Body temperature 2021-11-25 20:08:00 36.83 Nahomi [facility] Respiratory rate 2021-11-25 20:08:00 18 /min [facility] Body height 2021-11-25 20:08:00 160 cm [facility] Body weight 2021-11-25 20:08:00 92.534 kg [facility] BMI 2021-11-25 20:08:00 36.14 kg/m2 [facility] Systolic blood pressure 2021-11-24 14:12:00 121 mm[Hg] [facility] Diastolic blood pressure 2021-11-24 14:12:00 80 mm[Hg] [facility] Heart rate 2021-11-24 14:12:00 59 /min [facility] Body height 2021-11-24 14:12:00 160 cm [facility] Body weight 2021-11-24 14:12:00 92.806 kg [facility] BMI 2021-11-24 14:12:00 36.24 kg/m2 [facility] Systolic blood pressure 2021-11-22 14:23:00 118 mm[Hg] [facility] Diastolic blood pressure 2021-11-22 14:23:00 67 mm[Hg] [facility] Heart rate 2021-11-22 14:23:00 65 /min [facility] Respiratory rate 2021-11-22 14:23:00 19 /min [facility] Body height 2021-11-22 14:23:00 157.5 cm [facility] Body weight 2021-11-22 14:23:00 92.443 kg [facility] BMI 2021-11-22 14:23:00 37.28 kg/m2 [facility] Systolic blood pressure 2021-11-10 16:40:00 111 mm[Hg] [facility] Diastolic blood pressure 2021-11-10 16:40:00 62 mm[Hg] [facility] Heart rate 2021-11-10 16:25:00 72 /min [facility] Respiratory rate 2021-11-10 16:25:00 24 /min [facility] Oxygen saturation in Arterial blood by Pulse oximetry 2021-11-10 16:25:00 95 /min [facility] Body temperature 2021-11-10 15:12:00 36.5 Nahomi [facility] Body height 2021-11-07 14:42:00 167.6 cm [facility] Body weight 2021-11-07 14:42:00 91.6 kg [facility] BMI 2021-11-07 14:42:00 32.61 kg/m2 [facility] Heart rate 2021-11-10 15:20:00 71 /min [facility] Respiratory rate 2021-11-10 15:20:00 15 /min [facility] Oxygen saturation in Arterial blood by Pulse oximetry 2021-11-10 15:20:00 96 /min [facility] Systolic blood pressure 2021-11-10 15:15:00 116 mm[Hg] [facility] Diastolic blood pressure 2021-11-10 15:15:00 59 mm[Hg] [facility] Body temperature 2021-11-10 15:12:00 36.5 Nahomi [facility] Body height 2021-11-07 14:42:00 167.6 cm [facility] Body weight 2021-11-07 14:42:00 91.6 kg [facility] BMI 2021-11-07 14:42:00 32.61 kg/m2 [facility] Systolic blood pressure 2021-07-01 15:59:00 139 mm[Hg] [facility] Diastolic blood pressure 2021-07-01 15:59:00 73 mm[Hg] [facility] Heart rate 2021-07-01 15:59:00 66 /min [facility] Body temperature 2021-07-01 15:59:00 36.89 Nahomi [facility] Respiratory rate 2021-07-01 15:59:00 14 /min [facility] Body height 2021-07-01 15:59:00 157.5 cm [facility] Body weight 2021-07-01 15:59:00 93.532 kg [facility] BMI 2021-07-01 15:59:00 37.71 kg/m2 [facility] Oxygen saturation in Arterial blood by Pulse oximetry 2021-07-01 15:59:00 99 /min Ailyngen [facility] BP Systolic 2018-10-23 10:32:00 114 mm[Hg] Location: LUE; Position: Sitting [facility] BP Diastolic 2018-10-23 10:32:00 72 mm[Hg] Location: LUE; Position: Sitting [facility] Height 2018-10-23 10:32:00 62 [in_us] [facility] Weight 2018-10-23 10:32:00 233 [lb_av] [facility] Body Mass Index Calculated 2018-10-23 10:32:00 42.62 kg/m2 [facility] Temperature 2018-10-23 10:32:00 98 [degF] [facility] BP Systolic 2017-10-09 12:50:00 123 mm[Hg] Location: LUE; Position: Sitting [facility] BP Diastolic 2017-10-09 12:50:00 84 mm[Hg] Location: LUE; Position: Sitting [facility] Height 2017-10-09 12:50:00 62 [in_us] [facility] Weight 2017-10-09 12:50:00 245.3125 [lb_av] [facility] Body Mass Index Calculated 2017-10-09 12:50:00 44.87 kg/m2 [facility] Temperature 2017-10-09 12:50:00 67 [degF] [facility] Procedures Procedure Date / Time Performed Performing Clinician Source POCT URINALYSIS 2023-09-05 00:[facility] SARS-COV-2 ANTIGEN (BINAX NOW) 2023-08-20 20:35:00 Lucie Dunn [facility] POCT MOLECULAR STREP 2023-08-20 20:34:00 Unknown, Attabdiaziz loco [facility] COMP. METABOLIC PANEL ([id number]) 2023-03-06 22:19:00 Camilo Monsalve [facility] CBC WITH DIFF 2023-03-06 22:19:[address] [facility] URINALYSIS 2023-03-06 22:19:00 Camilo Monsalve [facility] URINE CULTURE 2023-03-06 22:19:[address] [facility] POCT MOLECULAR FLU 2023-03-04 17:04:00 Unknown, Attend ing [facility] POCT MOLECULAR STREP 2023-03-04 17:04:00 Unknown, Atte beronica [facility] DISCLOSURE AND CONSENT, MEDICAL AND SURGICAL PROCEDURES 2022-10-17 05:01:00 Doctor Unassigned, Hilbert [facility] COMP. METABOLIC PANEL ([id number]) 2022-07-17 12:32:00 Camilo Monsalve [facility] CBC WITH DIFF 2022-07-17 12:32:[address] [facility] DAY SURGERY - [place] 2022-07-04 05:01:00 Doctor Unassigned, Hilbert [facility] URETHRAL BULKING 2022-07-03 19:46:00 Erick Chairez [facility] POCT GLUCOSE (AUTOMATED) 2022-07-03 17:19:00 Erick Chairez [facility] POCT GLUCOSE (AUTOMATED) 2022-07-03 17:19:00 [facility] CONSENT/REFUSAL FOR DIAGNOSIS AND TREATMENT 2022-07-03 16:50:14 Doctor Unassigned, Hilbert [facility] CONSENT/REFUSAL FOR DIAGNOSIS AND TREATMENT 2022-07-03 16:50:14 Doctor Unassigned, Hilbert [facility] ASSIGNMENT OF BENEFITS 2022-07-03 16:49:35 Docto r Unassigned, Hilbert [facility] ASSIGNMENT OF BENEFITS 2022-07-03 16:49:35 Docto r Unassigned, Hilbert [facility] CONSENT/REFUSAL FOR DIAGNOSIS AND TREATMENT 2022-01-19 22:58:01 Doctor Unassigned, Hilbert [facility] COMP. METABOLIC PANEL ([id number]) 2022-01-16 16:45:00 Camilo Monsalve [facility] CBC WITH DIFF 2022-01-16 16:45:[address] [facility] IMPLANT/HARDWARE/ORTHO INFECTION CULTURE(AEROBIC/ANAEROB IC) 2021-12-30 23:03:00 Erick Chairez [facility] IMPLANT/HARDWARE/ORTHO INFECTION CULTURE(AEROBIC/ANAEROB IC) 2021-12-30 23:03:00 [facility] PUBOVAGINAL SLING 2021-12-30 18:33:00 Erick Chairez [facility] MESH IMPLANT REMOVAL 2021-12-30 18:33:00 Erick Chairez [facility] ASSIGNMENT OF BENEFITS 2021-12-30 15:07:35 Docto r Unassigned, Hilbert [facility] URINE CULTURE 2021-12-20 12:47:00 Erick Chairez [facility] DISCLOSURE AND CONSENT, MEDICAL AND SURGICAL PROCEDURES 2021-11-24 05:01:00 Doctor Unassigned, Hilbert [facility] DISCLOSURE AND CONSENT, MEDICAL AND SURGICAL PROCEDURES 2021-11-24 05:01:00 Doctor Unassigned, Hilbert [facility] CYSTOSCOPY 2021-11-10 13:52:00 Cathy Haynes [facility] BOTOX INJECTION 2021-11-10 13:52:00 Cathy Haynes [facility] EXAM UNDER ANESTHESIA 2021-11-10 13:52:00 Teresa Haynes [facility] POCT GLUCOSE(AGE >30DAYS) 2021-11-10 13:15:00 Earle Delaney [facility] POCT GLUCOSE(AGE >30DAYS) 2021-11-10 13:15:00 Earle Delaney [facility] DAY SURGERY - ADC 2021-11-10 05:01:00 Doctor Irene ssigned, Hilbert [facility] BASIC METABOLIC PANEL (NA, K, CL, CO2, GLUCOSE, BUN, CREATININE, CA) 2021-11-07 13:04:00 Cathy Haynes [facility] CBC WITHOUT DIFF 2021-11-07 13:04:00 Cathy Haynes [facility] GLYCOSYLATED HEMOGLOBIN (A1C) 2021-11-07 13:03:00 Cathy Haynes [facility] [[facility]] HEMOGLOBIN A1c 2017-11-28 00:00:00 [facility] [[facility]] IRON, TOTAL 2017-11-28 00:00:00 [facility] [QL] LIPID PANEL 2017-11-28 00:00:00 [facility] [QL] PTH, INTACT (WITHOUT CALCIUM) 2017-11-28 00:00:00 [facility] [[facility]] VITAMIN B1, WHOLE BLOOD 2017-11-28 00:00:00 [facility] [QLH] VITAMIN D, 25-HYDROXY, LC/MS/MS 2017-11-28 00:00:00 [facility] [B] VITAMIN B12 2017-11-28 00:00:00 [facility] [H] Vit A 2017-11-28 00:00:00 [facility] [H] Vitamin E Lvl 2017-11-28 00:00:00 [facility] [LH] TSH+Free T4 2017-11-28 00:00:00 [facility] [QLH] CBC (INCLUDES DIFF/PLT) 2017-11-28 00:00:00 [facility] [QLH] CMP W/EGFR 2017-11-28 00:00:00 [facility] [QLH] FOLATE, SERUM 2017-11-28 00:00:00 [facility] Encounters Start Date/Time End Date/Time Encounter Type Admission Type Attending Clinicians Care Facility Care Department Encounter ID Source 2022-05-11 07:06:14 Inpatient ERICK ALAN [facility] [id number] [facility] 2021-11-07 12:54:27 Outpatient CATHY MCGILL [facility] SYSTEMS ANALYST [id number] [facility] 2024-07-10 00:00:00 2024-07-10 00:00:00 Outpatient CAMILO WANG [facility] [id number] [facility] 2024-06-30 13:00:00 2024-06-30 13:00:00 Outpatient CAMILO WANG [facility] [id number] [facility] 2024-06-26 11:15:00 2024-06-26 11:30:00 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 Visit Lab, Ang - Db Camilo Monsalve Lab, Ang - Db [facility] 1.2.840.114 350.1.13.10 4.2.7.2.686 [id number] [facility] 2024-06-26 09:00:00 2024-06-26 09:19:26 Outpatient CAMILO WANG [facility] [id number] [facility] 2024-06-26 09:00:00 2024-06-26 09:19:26 [facility] 1.2840.114 350.1.13.10 4.2.7.2.686 [id number] [facility] 2024-03-19 00:00:00 2024-04-19 18:16:56 Patient Secure Msg Doctor Unassigned, Hilbert Doctor Unassigned, Hilbert [facility] 1.2840.114 350.1.13.10 4.2.7.2.686 [id number] [facility] 2024-04-10 08:20:00 2024-04-10 08:20:00 Outpatient R [facility] [id number] [facility] 2024-04-04 00:00:00 2024-04-04 14:23:58 Specialty Pharmacy Romelia Fine Brooke [facility] 1.284.114 350.1.13.10 4.2.7.2.686 [id number] [facility] 2024-04-03 00:00:00 2024-04-03 12:18:35 Refill Gricel [facility] 1.284.114 350.1.13.10 4.2.7.2.686 [id number] 044 [id number] [facility] 2024-04-03 00:00:00 2024-04-03 12:17:02 [facility] 1.284.114 350.1.13.10 4.2.7.2.686 [id number] 044 [id number] [facility] 2024-02-26 00:00:00 2024-03-29 18:15:32 Patient Secure Msg Doctor Unassigned, Hilbert Doctor Unassigned, Hilbert [facility] 1.2.840.114 350.1.13.10 4.2.7.2.686 [id number] [facility] 2024-02-26 00:00:00 2024-03-29 18:15:21 Patient Secure Msg [facility] 1.2.840.114 350.1.13.10 4.2.7.2.686 [id number] 044 [id number] [facility] 2024-03-02 00:00:00 2024-03-03 07:53:35 [facility] 1.2.840.114 350.1.13.10 4.2.7.2.686 [id number] [id number] [facility] 2024-02-26 00:00:00 2024-02-28 15:51:24 Patient Secure Msg [facility] 1.2.840.114 350.1.13.10 4.2.7.2.686 [id number] 044 [id number] [facility] 2024-02-25 00:00:00 2024-02-26 17:24:42 [facility] 1.2.840.114 350.1.13.10 4.2.7.2.686 [id number] [facility] 2023-12-13 00:00:00 2024-01-19 18:29:06 Patient Secure Msg Doctor Unassigned, Hilbert Doctor Unassigned, Hilbert [facility] 1.2.840.114 350.1.13.10 4.2.7.2.686 [id number] [facility] 2024-01-13 00:00:00 2024-01-14 09:57:41 [facility] 1.2.840.114 350.1.13.10 4.2.7.2.686 [id number] 044 [id number] [facility] 2024-01-07 00:00:00 2024-01-07 10:52:51 [facility]ill [facility] 1.2.840.114 350.1.13.10 4.2.7.2.686 [id number] 044 [id number] [facility] 2023-12-16 00:00:00 2023-12-17 07:54:49 [facility] 1.2.840.114 350.1.13.10 4.2.7.2.686 [id number] 044 [id number] [facility] 2023-12-11 00:00:00 2023-12-11 13:55:06 Patient Secure Msg [facility] 1.2.840.114 350.1.13.10 4.2.7.2.686 [id number] [id number] [facility] 2023-12-10 00:00:00 2023-12-10 16:46:24 Refill [facility] 1.2.840.114 350.1.13.10 4.2.7.2.686 [id number] [facility] 2023-12-10 15:30:00 2023-12-10 16:15:05 Outpatient R CAMILO MONSALVE [facility] [id number] [facility] 2023-12-10 15:30:00 2023-12-10 16:15:05 Office Visit [facility] 1.2.840.114 350.1.13.10 4.2.7.2.686 [id number] 044 [id number] [facility] 2023-11-30 00:00:00 2023-11-30 13:45:31 [facility]ill [facility] 1.2.840.114 350.1.13.10 4.2.7.2.686 [id number] [id number] [facility] 2023-11-24 00:00:00 2023-11-26 12:02:48 Refill [facility] 1.284.114 350.1.13.10 4.2.7.2.686 [id number] 044 [id number] [facility] 2023-11-13 00:00:00 2023-11-14 08:30:01 Patient Secure Msg [facility] 1.2.840.114 350.1.13.10 4.2.7.2.686 [id number] 044 [id number] [facility] 2023-11-13 00:00:00 2023-11-13 17:27:42 Refill [facility] 1.2.840.114 350.1.13.10 4.2.7.2.686 [id number] 044 [id number] [facility] 2023-10-15 09:00:00 2023-10-15 09:23:49 Outpatient R CAMILO MONSALVE [facility] [id number] [facility] 2023-10-15 09:00:00 2023-10-15 09:23:49 Office Visit [facility] 1.2.840.114 350.1.13.10 4.2.7.2.686 [id number] 044 [id number] [facility] 2023-10-12 00:00:00 2023-10-12 15:53:31 Refill [facility]a [facility]a [facility] 1..840.114 350.1.13.10 4.2.7.2.686 [id number] 044 [id number] [facility] 2023-09-04 00:00:00 2023-10-06 18:20:31 Patient Secure Msg Doctor Unassigned, Hilbert Doctor Unassigned, Hilbert [facility] 1..840.114 350.1.13.10 4.2.7.2.686 [id number] [facility] 2023-10-01 00:00:00 2023-10-01 00:00:00 Outpatient SPENCER HAIRSTON [facility] [id number] [facility] 2023-09-20 00:00:00 2023-09-20 16:22:35 Refill Savana Jones [facility] 1..840.114 350.1.13.10 4.2.7.2.686 [id number] [facility] 2023-09-13 15:00:00 2023-09-13 15:00:00 Outpatient JONATHAN MARIN [facility] [id number] [facility] 2023-09-13 00:00:00 2023-09-13 12:53:52 Refill [facility]a [facility] [place]?[facility] 1..840.114 350.1.13.10 4.2.7.2.686 [id number] [id number] [facility] 2023-09-10 08:15:00 2023-09-10 08:15:00 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 Visit Lab, Michelle Nixonthia [facility] 1.84.114 350.1.13.10 4.2.7.2.686 [id number] [facility] 2023-09-10 08:15:00 2023-09-10 07:55:10 Outpatient R CAMILO MONSALVE [facility] [id number] [facility] 2023-09-05 16:30:00 2023-09-05 17:07:31 Outpatient R BRIGITTE FREEMAN [facility] [id number] [facility] 2023-09-05 16:30:00 2023-09-05 17:07:31 Office Visit Brigitte Freeman Pao [facility] 1.840.114 350.1.13.10 4.2.7.2.686 [id number] [facility] 2023-09-04 15:00:00 2023-09-04 15:00:00 Outpatient R CAMILO MONSALVE [facility] [id number] [facility] 2023-08-20 15:00:00 2023-08-20 16:18:13 Outpatient R SAVANA JONES [facility] [id number] [facility] 2023-08-20 15:00:00 2023-08-20 15:20:00 Urgent Care KarenVashtiSavana Unknown, Attending [facility] 1.84.114 350.1.13.10 4.2.7.2.686 [id number] [facility] 2023-07-04 00:00:00 2023-08-04 18:23:46 Patient Secure Msg Doctor Unassigned, Hilbert [facility] 1.84.114 350.1.13.10 4.2.7.2.686 [id number] [facility] 2023-08-01 00:00:00 2023-08-02 07:08:54 [facility]ill [facility] 1.2840.114 350.1.13.10 4.2.7.2.686 [id number] [id number] [facility] 2023-08-01 00:00:00 2023-08-01 10:01:54 Refill [facility] 1.2840.114 350.1.13.10 4.2.7.2.686 [id number] [facility] 2023-07-30 00:00:00 2023-07-31 13:15:14 Refill Ramana Stockton [facility] 1.284.114 350.1.13.10 4.2.7.2.686 [id number] [facility] 2023-06-28 13:30:00 2023-06-28 14:00:32 Outpatient R CAMILO MONSALVE [facility] [id number] [facility] 2023-06-28 13:30:00 2023-06-28 14:00:32 [facility] [place] 1.2840.114 350.1.13.10 4.2.7.2.686 [id number] [facility] 2023-06-21 00:00:00 2023-06-21 00:00:00 Refill [facility] 1.284.114 350.1.13.10 4.2.7.2.686 [id number] 044 [id number] [facility] 2023-05-29 00:00:00 2023-05-29 00:00:00 Refill [facility] 1.84.114 350.1.13.10 4.2.7.2.686 [id number] [facility] 2023-05-01 00:00:00 2023-05-01 00:00:00 Refill [facility] 1.840.114 350.1.13.10 4.2.7.2.686 [id number] [facility] 2023-04-08 00:00:00 2023-04-08 00:00:00 [facility] 1.84.114 350.1.13.10 4.2.7.2.686 [id number] [facility] 2023-03-27 16:00:00 2023-03-27 16:01:32 Outpatient R CAMILO MONSALVE [facility] [id number] [facility] 2023-03-27 16:00:00 2023-03-27 16:01:32 Office Visit [facility] 1.84.114 350.1.13.10 4.2.7.2.686 [id number] [facility] 2023-03-15 00:00:00 2023-03-15 00:00:00 Patient Secure Msg [facility] 1.840.114 350.1.13.10 4.2.7.2.686 [id number] [facility] 2023-03-14 00:00:00 2023-03-14 00:00:00 Patient Secure Msg Marga [facility] 1.2840.114 350.1.13.10 4.2.7.2.686 [id number] [facility] 2023-03-09 00:00:00 2023-03-09 00:00:00 Refill GreenChristopher [facility] 1.840.114 350.1.13.10 4.2.7.2.686 [id number] [facility] 2023-03-09 00:00:00 2023-03-09 00:00:00 Patient Secure Msg Doctor Unassigned, Hilbert [facility] 1.2840.114 350.1.13.10 4.2.7.2.686 [id number] [facility] 2023-03-07 00:00:00 2023-03-07 00:00:00 Refill Gricel [facility] [place] 1.840.114 350.1.13.10 4.2.7.2.686 [id number] [facility] 2023-03-07 00:00:00 2023-03-07 00:00:00 Refill Maurice Christopher [facility] 1.840.114 350.1.13.10 4.2.7.2.686 [id number] [facility] 2023-03-07 00:00:00 2023-03-07 00:00:00 Patient Secure Msg Doctor Unassigned, Hilbert [facility] 1.2840.114 350.1.13.10 4.2.7.2.686 [id number] [id number] [facility] 2023-03-06 16:30:00 2023-03-06 16:45:21 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 Visit Lab, Marga NixonCritical access hospital [place]?[facility] 1.2.840.114 350.1.13.10 4.2.7.2.686 [id number] [facility] 2023-03-06 16:00:00 2023-03-06 16:07:29 Outpatient R CAMILO MONSALVE [facility] [id number] [facility] 2023-03-06 16:00:00 2023-03-06 16:07:29 Office [facility] 1.2.840.114 350.1.13.10 4.2.7.2.686 [id number] [facility] 2023-03-04 11:40:00 2023-03-04 11:47:53 Outpatient R MAURICE CHRISTOPHER [facility] [id number] [facility] 2023-03-04 11:40:00 2023-03-04 11:47:53 Urgent Care Maurice Christopher Unknown, Attending [facility] 1.840.114 350.1.13.10 4.2.7.2.686 [id number] [facility] 2023-03-01 00:00:00 2023-03-01 00:00:00 Telephone [facility] 1.2.840.114 350.1.13.10 4.2.7.2.686 [id number] [facility] 2023-02-24 00:00:00 2023-02-24 00:00:00 Refill Michelle [facility] 1.2.840.114 350.1.13.10 4.2.7.2.686 [id number] [facility] 2023-02-23 00:00:2023-02-23 00:00:00 Telephone Marga [facility] 1.2.840.114 350.1.13.10 4.2.7.2.686 [id number] [facility] 2023-02-12 00:00:00 2023-02-12 00:00:00 [facility] 1.2.840.114 350.1.13.10 4.2.7.2.686 [id number] [id number] [facility] 2023-01-16 00:00:00 2023-01-16 00:00:00 Refill [facility]a [facility] 1.2.840.114 350.1.13.10 4.2.7.2.686 [id number] [facility] 2023-01-11 00:00:00 2023-01-11 00:00:00 [facility] 1.2.840.114 350.1.13.10 4.2.7.2.686 [id number] [facility] 2022-12-26 00:00:00 2022-12-26 00:00:00 Outpatient GC_GCBZW_Ka cadencea_S [facility] [id number] [facility] 2022-11-28 09:45:00 2022-11-28 09:45:00 Outpatient ERICK ALAN [facility] [id number] [facility] 2022-11-28 08:15:00 2022-11-28 08:15:00 Outpatient ERICK ALAN [facility] [id number] [facility] 2022-11-27 00:00:00 2022-11-27 00:00:00 [facility] 1.84.114 350.1.13.10 4.2.7.2.686 [id number] [facility] 2022-10-17 08:30:00 2022-10-17 09:30:00 [facility] 1.84114 350.1.13.10 4.2.7.2.686 [id number] [facility] 2022-10-17 08:30:00 2022-10-17 08:30:00 Outpatient R ERICK CHAIREZ [facility] [id number] [facility] 2022-10-17 00:00:00 2022-10-17 00:00:00 Orders Only Doctor Unassigned, [facility] 1.84.114 350.1.13.10 4.2.7.2.686 [id number] [facility] 2022-10-05 10:30:00 2022-10-05 10:30:00 Outpatient R ERICK CHAIREZ [facility] [id number] [facility] 2022-09-16 00:00:00 2022-09-16 00:00:00 Patient Secure Msg Doctor Unassigned, Hilbert [facility] 1.84.114 350.1.13.10 4.2.7.2.686 [id number] [facility] 2022-09-12 00:00:00 2022-09-12 00:00:00 [facility] 1.840.114 350.1.13.10 4.2.7.2.686 [id number] [facility] 2022-09-07 07:45:16 2022-09-07 23:59:00 Outpatient CAMILO WANG [facility] [id number] [facility] 2022-09-07 07:45:16 2022-09-07 23:59:00 Hospital Encounter Camilo Monsalve [facility] 1.2.840.114 350.1.13.10 4.2.7.2.686 [id number] [facility] 2022-09-05 00:00:00 2022-09-05 00:00:00 [facility] 1.2.840.114 350.1.13.10 4.2.7.2.686 [id number] [facility] 2022-09-01 16:30:00 2022-09-01 16:30:00 [facility] [id number] [facility] 2022-08-10 15:00:00 2022-08-10 16:01:53 [facility] [id number] [facility] 2022-08-10 15:00:00 2022-08-10 16:01:53 [facility] 1.2.840.114 350.1.13.10 4.2.7.2.686 [id number] [facility] 2022-07-28 00:00:00 2022-07-28 00:00:00 Patient Secure Msg [facility] 1.2840.114 350.1.13.10 4.2.7.2.686 [id number] [id number] [facility] 2022-07-18 00:00:00 2022-07-18 00:00:00 [facility] 1.2.840.114 350.1.13.10 4.2.7.2.686 [id number] [facility] 2022-07-17 08:45:00 2022-07-17 09:00:00 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 Visit Lab, Humberto RosalesMichelle [facility]que[facility]I [facility] MEDICAL OFFICE BUILDING 1..840.114 350.1.13.10 4.2.7.2.686 [id number] [facility] 2022-07-17 08:45:00 2022-07-17 08:45:00 Outpatient R CAMILO MONSALVE [facility] [id number] [facility] 2022-07-14 15:00:00 2022-07-14 15:00:00 Outpatient R LEONARDOREBELCAMILO [facility] [id number] [facility] 2022-07-14 13:30:00 2022-07-14 14:25:51 [facility]ALONI [facility] MEDICAL OFFICE BUILDING 1..840.114 350.1.13.10 4.2.7.2.686 [id number] [facility] 2022-07-14 13:30:00 2022-07-14 14:25:51 Outpatient O CAMILO MONSALVE [facility] [id number] [facility] 2022-07-14 00:00:00 2022-07-14 00:00:00 Refill [facility] MEDICAL OFFICE BUILDING 1..840.114 350.1.13.10 4.2.7.2.686 [id number] [facility] 2022-07-13 14:30:00 2022-07-13 14:30:00 Outpatient R FARIHA CRUZ [facility] [id number] [facility] 2022-07-06 00:00:00 2022-07-06 00:00:00 Fariha Ballesteros [facility] 1.2.840.114 350.1.13.10 4.2.7.2.686 [id number] [facility] 2022-07-04 00:00:00 2022-07-04 00:00:00 Orders Only Doctor Unassigned, Hilbert [facility] 1.2.840.114 350.1.13.10 4.2.7.2.686 [id number] [facility] 2022-07-03 11:48:00 2022-07-03 17:57:00 Outpatient R [facility] [id number] [facility] 2022-07-03 11:48:00 2022-07-03 17:57:00 Hospital Encounter [facility] ([facility]) 1.2.840.114 350.1.13.10 4.2.7.2.686 [id number] [id number] [facility] 2022-07-03 14:38:00 2022-07-03 15:31:[address] [facility] SPECIALTY C[facility] 1.2.840.114 350.1.13.10 4.2.7.2.686 [id number] [facility] 2022-07-03 00:00:00 2022-07-03 00:00:00 Telephone [facility] PRIMARY & SPECIALTY CARE 1.2.840.114 350.1.13.10 4.2.7.2.686 [id number] [facility] 2022-06-27 08:00:00 2022-06-27 08:15:00 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 Visit 1, Adc Lab [place] 1.2.840.114 350.1.13.10 4.2.7.2.686 [id number] [facility] 2022-06-27 08:00:00 2022-06-27 08:00:00 Outpatient R [facility] [id number] [facility] 2022-06-27 00:00:00 2022-06-27 00:00:00 Telephone [facility] PRIMARY & SPECIALTY CARE 1.2.840.114 350.1.13.10 4.2.7.2.686 [id number] [facility] 2022-05-26 14:30:00 2022-05-26 14:30:00 Outpatient CATHY MCGILL [facility] [id number] [facility] 2022-05-16 00:00:00 2022-05-16 00:00:00 Telephone [facility] PRIMARY [facility] SPECIALTY CARE 1.2.840.114 350.1.13.10 4.2.7.2.686 [id number] [facility] 2022-05-11 00:00:00 2022-05-11 00:00:00 Telephone [facility] PRIMARY [facility] SPECIALTY CARE 1.2.840.114 350.1.13.10 4.2.7.2.686 [id number] [facility] 2022-05-10 13:00:00 2022-05-10 14:00:00 Office Visit [facility] MEDICAL OFFICE BUILDING 1.2.840.114 350.1.13.10 4.2.7.2.686 [id number] [facility] 2022-05-10 13:00:00 2022-05-10 13:00:00 Outpatient R [facility] [id number] [facility] 2022-05-09 09:30:00 2022-05-09 09:30:00 Outpatient R [facility] [id number] [facility] 2022-04-20 00:00:00 2022-04-20 00:00:00 Telephone Contreras, [facility] PRIMARY & SPECIALTY CARE 1.2.840.114 350.1.13.10 4.2.7.2.686 [id number] [facility] 2022-04-11 16:00:00 2022-04-11 16:00:00 Office Visit [facility] PRIMARY & SPECIALTY CARE 1.2.840.114 350.1.13.10 4.2.7.2.686 [id number] [facility] 2022-04-11 16:00:00 2022-04-11 15:33:04 Outpatient Neelam CHAIREZ [facility] [id number] [facility] 2022-03-29 00:00:00 2022-03-29 00:00:00 Outpatient MALIKA PIRES [id number] Ailyn Krishnan 2022-03-23 00:00:00 2022-03-23 00:00:00 [facility] 1.2.840.114 350.1.13.10 4.2.7.2.686 [id number] [facility] 2022-03-16 11:45:00 2022-03-16 11:45:00 Outpatient Neelam CHAIREZ [facility] [id number] [facility] 2022-02-07 13:45:00 2022-02-07 15:55:11 Outpatient Neelam [facility] [id number] [facility] 2022-02-07 13:45:00 2022-02-07 15:55:11 Office Visit [facility] PRIMARY & SPECIALTY CARE 1.2.840.114 350.1.13.10 4.2.7.2.686 [id number] [facility] 2022-01-26 00:00:00 2022-01-26 00:00:00 Patient Secure Msg Doctor Unassigned, Hilbert [facility] 1.2.840.114 350.1.13.10 4.2.7.2.686 [id number] [facility] 2022-01-25 00:00:00 2022-01-25 00:00:00 Telephone [facility] PRIMARY & SPECIALTY CARE 1.2.840.114 350.1.13.10 4.2.7.2.686 [id number] [facility] 2022-01-24 00:00:00 2022-01-24 00:00:00 Telephone [facility] PRIMARY & SPECIALTY CARE 1.2.840.114 350.1.13.10 4.2.7.2.686 [id number] [facility] 2022-01-24 00:00:00 2022-01-24 00:00:00 Telephone [facility] PRIMARY & SPECIALTY CARE 1.2.840.114 350.1.13.10 4.2.7.2.686 [id number] [facility] 2022-01-19 16:59:00 2022-01-19 20:44:00 Emergency X ISAMAR SENIOR [facility] [id number] [facility] 2022-01-19 16:59:00 2022-01-19 20:44:00 Emergency Isamar [facility] 1.2.840.114 350.1.13.10 4.2.7.2.686 [id number] [facility] 2022-01-17 11:30:00 2022-01-17 12:00:00 Office Visit Severiano Segundo [facility] PRIMARY & SPECIALTY CARE 1.2.840.114 350.1.13.10 4.2.7.2.686 [id number] [facility] 2022-01-17 11:30:00 2022-01-17 11:30:00 Outpatient R SEVERIANO SEGUNDO [facility] [id number] [facility] 2022-01-16 10:15:00 2022-01-16 10:24:55 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 Visit Lab, Humberto Rosalesrebel [facility] 1.20.114 350.1.13.10 4.2.7.2.686 [id number] [facility] 2022-01-16 10:15:00 2022-01-16 10:15:00 [facility] [id number] [facility] 2022-01-13 13:00:00 2022-01-13 14:00:32 Outpatient R [facility] [id number] [facility] 2022-01-13 13:00:00 2022-01-13 14:00:32 Office Visit [facility] 1.0.114 350.1.13.10 4.2.7.2.686 [id number] [facility] 2022-01-10 00:00:00 2022-01-10 00:00:00 Telephone [facility] PRIMARY & SPECIALTY CARE 1.2840.114 350.1.13.10 4.2.7.2.686 [id number] [facility] 2022-01-06 00:00:00 2022-01-06 00:00:00 Telephone [facility] PRIMARY & SPECIALTY CARE 1.2840.114 350.1.13.10 4.2.7.2.686 [id number] [facility] 2022-01-03 00:00:00 2022-01-03 00:00:00 Telephone [facility] 1.2840.114 350.1.13.10 4.2.7.2.686 [id number] [facility] 2021-12-30 10:07:00 2021-12-31 13:42:00 Outpatient R ERICK CHAIREZ [facility] [id number] [facility] 2021-12-30 10:07:00 2021-12-31 13:42:00 Hospital Encounter Erick Chairez [facility] 1.2.840.114 350.1.13.10 4.2.7.2.686 [id number] [facility] 2021-12-30 12:30:00 2021-12-30 15:42:00 Surgery Contreras [facility] SPECIALTY CARE [facility] 1.2.840.114 350.1.13.10 4.2.7.2.686 [id number] [facility] 2021-12-30 00:00:00 2021-12-30 00:00:00 Orders Only Doctor Unassigned, Hilbert [facility] 1.2.840.114 350.1.13.10 4.2.7.2.686 [id number] [facility] 2021-12-26 00:00:00 2021-12-26 00:00:00 Telephone [facility] 1.2.840.114 350.1.13.10 4.2.7.2.686 [id number] [facility] 2021-12-23 00:00:00 2021-12-23 00:00:00 Telephone Contreras [facility] PRIMARY & SPECIALTY CARE 1.2.840.114 350.1.13.10 4.2.7.2.686 [id number] [facility] 2021-12-22 00:00:00 2021-12-22 00:00:[address] [facility] SPECIAL[facility] 1.840.114 350.1.13.10 4.2.7.2.686 [id number] [facility] 2021-12-20 07:30:00 2021-12-20 07:45:00 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 Visit Pob, Adc Lab [facility] 1.84.114 350.1.13.10 4.2.7.2.686 [id number] [facility] 2021-12-20 07:30:00 2021-12-20 07:30:00 [facility] [id number] [facility] 2021-12-20 00:00:00 2021-12-20 00:00:00 Telephone [facility] PRIMARY & SPECIALTY CARE 1..114 350.1.13.10 4.2.7.2.686 [id number] [facility] 2021-11-25 15:00:00 2021-11-25 15:36:59 [id number] 2021-11-25 15:00:00 2021-11-25 15:36:59 [facility] 1.84.114 350.1.13.10 4.2.7.2.686 [id number] [facility] 2021-11-24 09:30:00 2021-11-24 11:21:34 [facility] [id number] [facility] 2021-11-24 09:30:00 2021-11-24 11:21:34 Office Visit [facility] PRIMARY & SPECIALTY CARE 1.84.114 350.1.13.10 4.2.7.2.686 [id number] [facility] 2021-11-22 09:15:00 2021-11-22 10:00:06 Outpatient R ERICK CHAIREZ [facility] [id number] [facility] 2021-11-22 09:15:00 2021-11-22 10:00:06 [facility] 1.2.840.114 350.1.13.10 4.2.7.2.686 [id number] [facility] 2021-11-18 00:00:00 2021-11-18 00:00:00 Patient Secure Msg Doctor Unassigned, Hilbert [facility] MEDICAL OFFICE BUILDING 1.2.840.114 350.1.13.10 4.2.7.2.686 [id number] [facility] 2021-11-16 00:00:00 2021-11-16 00:00:00 Telephone [facility] PROFESSIO NAL BUILDING 1.2840.114 350.1.13.10 4.2.7.2.686 [id number] [facility] 2021-11-10 07:46:00 2021-11-10 11:45:[address] SYSTEM[facility] ANALYST [id number] [facility] 2021-11-10 07:46:00 2021-11-10 11:45:00 Hospital Encounter [facility] SURGICAL [place] 1.2.840.114 350.1.13.10 4.2.7.2.686 [id number] [facility] 2021-11-10 08:45:00 2021-11-10 10:22:00 Surgery [facility] SURGICAL [place] 1.2.840.114 350.1.13.10 4.2.7.2.686 [id number] [facility] 2021-11-10 00:00:00 2021-11-10 00:00:00 Orders Only Doctor Unassigned, Hilbert [facility] 1.2.840.114 350.1.13.10 4.2.7.2.686 [id number] [facility] 2021-11-09 08:30:00 2021-11-09 08:30:00 Outpatient R CATHY HAYNES [facility] [id number] [facility] 2021-11-07 07:30:00 2021-11-07 07:45:00 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 Visit Pob, [facility] 1.2.840.114 350.1.13.10 4.2.7.2.686 [id number] [facility] 2021-11-07 07:30:00 2021-11-07 07:45:00 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 Visit Pob, [facility] 1.2.840.114 350.1.13.10 4.2.7.2.686 [id number] [facility] 2021-11-07 07:30:00 2021-11-07 07:30:00 Outpatient R [facility] [id number] [facility] 2021-11-07 07:30:00 2021-11-07 07:30:00 Outpatient R CATHY HAYNES [facility] [id number] [facility] 2021-11-07 00:00:00 2021-11-07 00:00:00 Case Management Cathy Haynes [facility] 1.2.840.114 350.1.13.10 4.2.7.2.686 [id number] [facility] 2021-11-04 15:30:00 2021-11-04 16:24:39 Office Visit Adina Haynesha [facility] BUILDING 1.2.840.114 350.1.13.10 4.2.7.2.686 [id number] [facility] 2021-11-04 15:30:00 2021-11-04 16:24:39 Outpatient R CATHY HAYNES [facility] [id number] [facility] 2021-11-04 15:30:00 2021-11-04 15:30:00 Outpatient R CATHY HAYNES [facility] [id number] [facility] 2021-11-04 00:00:00 2021-11-04 00:00:00 Orders Only Doctor Unassigned, Hilbert [facility] 1.2.840.114 350.1.13.10 4.2.7.2.686 [id number] [facility] 2021-11-04 00:00:00 2021-11-04 00:00:00 Prep For Surgery Cathy Haynes [facility] 1.2.840.114 350.1.13.10 4.2.7.2.686 [id number] [facility] 2021-07-15 11:00:00 2021-07-15 11:00:00 Outpatient MALIKA PIRES [id number] [facility] 2021-07-07 00:00:00 2021-07-07 00:00:00 Outpatient MALIKA PIRES [id number] [facility] 2021-07-04 00:00:00 2021-07-04 00:00:00 Outpatient MALIKA PIRES [id number] Ailyn omaira 2021-07-04 00:00:00 2021-07-04 00:00:00 Outpatient MALIKA PIRES [id number] Ailyn Krishnan 2021-07-01 11:45:00 2021-07-01 11:45:00 Outpatient [facility] AILYN MANNING [id number] [facility] 2021-07-01 11:00:00 2021-07-01 11:30:00 Office Visit Malika Pires 1.2.840.114 350.1.13.13 1.2.7.2.686 [id number] Ailyn Krishnan 2021-07-01 00:00:00 2021-07-01 00:00:00 Outpatient MALIKA PIRES AILYN AILYN [id number] Ailyn Ariella 2021-07-01 00:00:00 2021-07-01 00:00:00 Outpatient MALIKA PIRES AILYN AILYN [id number] Ailyn Krishnan 2021-07-01 00:00:00 2021-07-01 00:00:00 Outpatient MALIKA PIRES AILYN [id number] [facility] 2020-03-04 14:15:00 2020-03-05 05:59:59 Outpatient nullFlavo r [facility] [place] [id number] Jarocho Wagoner 2018-11-06 12:30:00 2018-11-06 12:30:00 Outpatient [facility] 2018-10-23 11:00:00 2018-10-23 11:00:00 Appointmen t; AGUS WILSON M.D. SNYDER, BRAD, M.D. [facility] [id number] [place] [facility] 2018-09-18 10:15:00 2018-09-18 10:15:00 Appointmen t; AGUS WILSON M.D. SNYDER, BRAD, M.D. [facility] [id number] [place] [facility] [facility] 2018-08-28 11:30:00 2018-08-28 11:30:00 Appointmen t; AGUS WILSON M.D. SNYDER, BRAD, M.D. [facility] [id number] [place] [facility] 2018-07-31 09:30:00 2018-07-31 09:30:00 Appointmen t; AGUS WILSON M.D. SNYDER, BRAD, M.D. [facility] UTP [id number] [place] [facility] 2018-06-26 11:30:00 2018-06-26 11:30:00 Appointmen t; AGUS WILSON M.D. SNYDER, BRAD, M.D. [facility] [id number] [place] [facility] 2018-05-29 11:30:00 2018-05-29 11:30:00 Appointmen t; AGUS WILSON M.D. SNYDER, BRAD, M.D. [facility] [id number] [place] [facility] 2018-04-24 11:30:00 2018-04-24 11:30:00 Appointmen t; AGUS WILSON M.D. SNYDER, BRAD, M.D. [facility] [id number] [place] [facility] [facility] 2018-03-06 12:30:00 2018-03-06 12:30:00 Appointmen t; ANGELES MARIN, ANGELES CORTEZ, ROBBI [facility] UTP [id number] [place] [facility] 2018-03-06 11:30:00 2018-03-06 11:30:00 Appointmen t; AGUS WILSON M.D. SNYDER, BRAD, M.D. [facility] [id number] [place] [facility] 2018-01-30 10:00:00 2018-01-30 10:00:00 Appointmen t; AGUS WILSON M.D. SNYDER, BRAD, M.D. [facility] [id number] [place] [facility] 2017-12-26 10:00:00 2017-12-26 10:00:00 Appointmen t; AGUS WILSON M.D. SNYDER, BRAD, M.D. [facility] [id number] [place] [facility] 2017-12-21 08:30:00 2017-12-21 08:30:00 Appointmen t; AGUS WILSON M.D. SNYDER, BRAD, M.D. [facility] [id number] [place] [facility] 2017-11-28 10:30:00 2017-11-28 10:30:00 Appointmen t; AGUS WILSON M.D. SNYDER, BRAD, M.D. [facility] General Surgery [id number] [place] [facility] 2017-10-09 12:45:00 2017-10-09 12:45:00 Appointmen t; MICHAELA BONILLA NP KLEIN, CONNIE, ANNAMARIA UTP [facility] [id number] [place] [facility] 2017-09-07 11:00:00 2017-09-07 11:00:00 Appointmen t; MICHAELA BONILLA NP KLEIN, CONNIE, WIRER UTP UTP [id number] [place] [facility] 2017-09-05 13:00:00 2017-09-05 13:00:00 Appointmen t; MICHAELA BONILLA NP KLEIN, CONNIE, WIRER UTP [facility]TP [id number] [place] [facility] 2017-08-02 10:30:00 2017-08-02 10:30:00 Appointmen t; MICHAELA BONILLA NP KLEIN, CONNIE, WIRER UTP [facility]TP [id number] [place] [facility] 2017-03-21 10:00:00 2017-03-21 10:00:00 Appointmen t; AGUS WILSON M.D. SNYDER, BRAD, M.D. [facility]TP [id number] [place] [facility] 2017-02-14 10:45:00 2017-02-14 10:45:00 Appointmen t; AGUS WILSON M.D. SNYDER, BRAD, M.D. [facility]TP [id number] [place] [facility] 2016-12-25 15:30:00 2016-12-25 15:30:00 Appointmen t; ANGELES MARIN RD WOLIN-RIKLI N, ANGELES, RD UTP UTP [id number] [place] [facility] 2016-12-15 12:00:00 2016-12-15 12:00:00 Appointmen t; YUMI-ANGELES PEACE RD WOLIN-RIKLI N, ANGELES, RD UTP UTP [id number] [place] [facility] 2016-11-20 14:00:00 2016-11-20 14:00:00 Appointmen t; LUISIN-VICETNE INANGELES RD WOLIN-RIKLI N, ANGELES, RD UTP UTP [id number] [place] [facility] 2016-10-19 14:30:00 2016-10-19 14:30:00 Appointmen t; LUISIN-VICENTE INANGELES RD WOLIN-RIKLI N, ANGELES, RD UTP UTP [id number] [place] [facility] 2016-10-11 10:45:00 2016-10-11 10:45:00 Appointmen t; AGUS WILSON M.D. SNYDER, BRAD, M.D. [facility] UTP [id number] [place] [facility] 2016-08-30 09:30:00 2016-08-30 09:30:00 Appointmen ricky; AGUS WILSON M.D. SNYDER, BRAD, M.D. [facility] [place]TP [id number] [place] [facility] Results Test Description Test Time Test Comments Results Result Co mments Source [facility] SARS-COV-2 ANTIGEN (BINAX NOW)2023-08-20 20:50:00* Test Item Value Reference Range Interpretation Comme nts POCT SARS-COV-2 ANTIGEN (test code = 66716-5) Not Detected Not Detected On board controls acceptable with C Line (test code = 3574) Yes EVERETTE (test code = EVERETTE) accurate developme nt and interpretation of all internal controls Lab Interpretation (test code = 17167-2) Normal [facility] MOLECULAR [id number] 20:41:45* Test Item Value Reference Range Interpretation Comme nts POCT Molecular Strep (test c ode = 34195-8) Negative Negative Lab Interpretation (test cod e = 91907-5) Normal [facility]. Metabolic Panel (88697)2023-03-07 05:19:50* Test Item Value Reference Range Interpretation Comme nts NA (test code = 3777174167) 137 mmol/L 135-145 K (test code = 6293288590) 4.5 mmol/L 3.5-5.0 CL (test code = 3352694376) 104 mmol/L 98-108 CO2 TOTAL (test code = 9668832655) 24 mmol/L 23-31 AGAP (test code = 9765079713) 9 2-16 BUN (test code = 9416317282) 16 mg/dL 7-23 GLUCOSE (test code = 8348443812) 110 mg/dL 70-110 CREATININE (test code = 7898262882) 0.62 mg/dL 0.50-1.04 TOTAL BILI (test code = 5109964839) 0.5 mg/dL 0.1-1.1 CALCIUM (test code = 2645757134) 9.0 mg/dL 8.6-10.6 T PROTEIN (test code = 5390722420) 7.3 g/dL 6.3-8.2 ALBUMIN (test code = 1109539826) 4.2 g/dL 3.5-5.0 ALK PHOS (test code = 0412043491) 95 U/L 34-122 ALTv (test code = 1742-6) 18 U/L 5-35 AST(SGOT) (test code = 5277633195) 32 U/L 13-40 eGFR (test code = 81198-3) 102.1 mL/min/1.73m2 CKD-EPI eGFR (20 21). Assuming creatinine has been stable day-to-day for at least three months, the eGFR indicates Category G1 (>= 90 mL/min/1.73 m2) [facility] with [id number] 04:07:46* Test Item Value Reference Range Interpretation Comme nts WBC (test code = 6690-2) 6.37 See_Comment [Automated [employer] tarpipe] The system which generated this result transmitted reference range: 4.30 - 11.10 10*3/?L. The reference range was not used to interpret this result as normal/abnormal. RBC (test code = 789-8) 5.06 See_Comment [[employer] tarpipe] The system which generated this result transmitted reference range: 3.93 - 5.25 10*6/?L. The reference range was not used to interpret this result as normal/abnormal. HGB (test code = 718-7) 13.3 g/dL 11.6-15.0 HCT (test code = 4544-3) 41.0 % 35.7-45.2 MCV (test code = 787-2) 81.0 fL 80.6-95.5 MCH (test code = 785-6) 26.3 pg 25.9-32.8 MCHC (test code = 786-4) 32.4 g/dL 31.6-35.1 RDW-SD (test code = 30126-9) 43.9 fL 39.0-49.9 RDW-CV (test code = 788-0) 15.3 % 12.0-15.5 PLT (test code = 777-3) 240 See_Comment [Automated messa ge] The system which generated this result transmitted reference range: 166 - 358 10*3/?L. The reference range was not used to interpret this result as normal/abnormal. MPV (test code = 76980-7) 11.6 fL 9.5-12.9 NRBC/100 WBC (test code = 4395435850) 0.0 See_Comment [Automated me ssage] The system which generated this result transmitted reference range: 0.0 - 10.0 /100 WBCs. The reference range was not used to interpret this result as normal/abnormal. NRBC x10^3 (test code = 4059840586) See_Comment [Automated me ssage] The system which generated this result transmitted reference range: 10*3/?L. The reference range was not used to interpret this result as normal/abnormal. GRAN MAT (NEUT) % (test code = 770-8) 59.8 % IMM GRAN % (test code = 1200648428) 0.30 % LYMPH % (test code = 736-9) 22.0 % MONO % (test code = 5905-5) 12.4 % EOS % (test code = 713-8) 4.4 % BASO % (test code = 706-2) 1.1 % GRAN MAT x10^3(ANC) (test code = 5796222433) 3.81 10*3/uL 1.88-7.09 IMM GRAN x10^3 (test code = 1670627535) 0.00-0.06 LYMPH x10^3 (test code = 731-0) 1.40 10*3/uL 1.32-3.29 MONO x10^3 (test code = 742-7) 0.79 10*3/uL 0.33-0.92 EOS x10^3 (test code = 711-2) 0.28 10*3/uL 0.03-0.39 BASO x10^3 (test code = 704-7) 0.07 10*3/uL 0.01-0.07 [facility] MOLECULAR [id number] 17:12:50* Test Item Value Reference Range Interpretation Comme nts POCT Molecular Strep (test c ode = 92704-0) Negative Negative Lab Interpretation (test cod e = 08850-6) [id number] 17:10:37* Test Item Value Reference Range Interpretation Comme nts POCT Molecular FluA (test co de = 01280-7) Positive Negative A Lab Interpretation (test cod e = 67733-3) Abnormal [facility]. METABOLIC PANEL (56508)2022-07-17 19:57:58* Test Item Value Reference Range Interpretation Comme nts NA (test code = 3645665757) 142 mmol/L 135-145 K (test code = 9856167168) 5.1 mmol/L 3.5-5.0 H CL (test code = 8943015950) 107 mmol/L 98-108 CO2 TOTAL (test code = 2157357202) 25 mmol/L 23-31 AGAP (test code = 5676810186) 10 2-16 BUN (test code = 5235032656) 12 mg/dL 7-23 GLUCOSE (test code = 8806477891) 107 mg/dL 70-110 CREATININE (test code = 6707662047) 0.55 mg/dL 0.50-1.04 TOTAL BILI (test code = 5390037767) 0.7 mg/dL 0.1-1.1 CALCIUM (test code = 0792402921) 9.1 mg/dL 8.6-10.6 T PROTEIN (test code = 2341269389) 7.2 g/dL 6.3-8.2 ALBUMIN (test code = 4415128826) 4.3 g/dL 3.5-5.0 ALK PHOS (test code = 8415753707) 78 U/L 34-122 ALTv (test code = 1742-6) 17 U/L 5-35 AST(SGOT) (test code = 7007889584) 31 U/L 13-40 eGFR (test code = 9394433896) 113.1 mL/min/1.73m2 EVERETTE (test code = EVERETTE) Association of Glomerular Filtration Rate (GFR) and Staging of Kidney Disease* + --+ --+ ------+| GFR (mL/min/1.73 m2) ?| With Kidney Damage ?| ?Without Kidney Damage+ --------+ --------+ +| ?>90 ?| ?Stage one ?| ? Normal ?+ ---+ ---+ -------+| ?60-89 ?| ?Stage two ?| ? Decreased GFR ? + --+ --+ ------+| ?30-59 ?| ?Stage three ?| ? Stage three ? + --+ --+ ------+| ?15-29 ?| ?Stage four ? | ? Stage four ?+ ---+ ---+ -------+| ?<15 (or dialysis) ? ?| ?Stage five ? | ? Stage five ?+ ---+ ---+ -------+ *Each stage assumes the associated GFR level has been in effect for at least three months. ?Stages 1 to 5, with or without kidney disease, indicate chronic kidney disease. Notes: Determination of stages one and two (with eGFR >59mL/min/1.73 m2) requires estimation of kidney damage for at least three months as defined by structural or functional abnormalities of the kidney, manifested by either:Pathological abnormalities or Markers of kidney damage (including abnormalities in the composition of the blood or urine or abnormalities in imaging tests). Lab Interpretation (test code = 13327-7) Abnormal [facility] WITH [id number] 19:41:51* Test Item Value Reference Range Interpretation Comme nts WBC (test code = 6690-2) 5.65 See_Comment [StreetOwl] The system which generated this result transmitted reference range: 4.30 - 11.10 10*3/?L. The reference range was not used to interpret this result as normal/abnormal. RBC (test code = 789-8) 4.80 See_Comment [StreetOwl] The system which generated this result transmitted reference range: 3.93 - 5.25 10*6/?L. The reference range was not used to interpret this result as normal/abnormal. HGB (test code = 718-7) 12.6 g/dL 11.6-15.0 HCT (test code = 4544-3) 39.8 % 35.7-45.2 MCV (test code = 787-2) 82.9 fL 80.6-95.5 MCH (test code = 785-6) 26.3 pg 25.9-32.8 MCHC (test code = 786-4) 31.7 g/dL 31.6-35.1 RDW-SD (test code = 65029-6) 45.1 fL 39.0-49.9 RDW-CV (test code = 788-0) 15.0 % 12.0-15.5 PLT (test code = 777-3) 304 See_Comment [Automated messa ge] The system which generated this result transmitted reference range: 166 - 358 10*3/?L. The reference range was not used to interpret this result as normal/abnormal. MPV (test code = 50666-8) 11.2 fL 9.5-12.9 NRBC/100 WBC (test code = 9184136094) 0.0 See_Comment [Automated me ssage] The system which generated this result transmitted reference range: 0.0 - 10.0 /100 WBCs. The reference range was not used to interpret this result as normal/abnormal. NRBC x10^3 (test code = 2662679598) See_Comment [Automated me ssage] The system which generated this result transmitted reference range: 10*3/?L. The reference range was not used to interpret this result as normal/abnormal. GRAN MAT (NEUT) % (test code = 770-8) 64.6 % IMM GRAN % (test code = 0790940404) 0.40 % LYMPH % (test code = 736-9) 23.7 % MONO % (test code = 5905-5) 7.8 % EOS % (test code = 713-8) 2.3 % BASO % (test code = 706-2) 1.2 % GRAN MAT x10^3(ANC) (test code = 0448624361) 3.65 10*3/uL 1.88-7.09 IMM GRAN x10^3 (test code = 8870653762) 0.00-0.06 LYMPH x10^3 (test code = 731-0) 1.34 10*3/uL 1.32-3.29 MONO x10^3 (test code = 742-7) 0.44 10*3/uL 0.33-0.92 EOS x10^3 (test code = 711-2) 0.13 10*3/uL 0.03-0.39 BASO x10^3 (test code = 704-7) 0.07 10*3/uL 0.01-0.07 [facility] GLUCOSE (AUTOMATED)2022-07-03 17:19:46* Test Item Value Reference Range Interpretation Comme nts POCT GLU (test code = 4225433720) 89 mg/dL 70-110 Lab Interpretation (test cod e = 68033-5) Normal [facility] GLUCOSE (AUTOMATED)2022-07-03 17:19:46* Test Item Value Reference Range Interpretation Comme nts POCT GLU (test code = 7048629766) 89 mg/dL 70-110 Lab Interpretation (test cod e = 55044-5) Normal [facility] WITH [id number] 21:20:42* Test Item Value Reference Range Interpretation Comme nts WBC (test code = 6690-2) See_Comment [Automated messa ge] The system which generated this result transmitted reference range: 4.30 - 11.10 10*3/?L. The reference range was not used to interpret this result as normal/abnormal. RBC (test code = 789-8) See_Comment L [Automated messa ge] The system which generated this result transmitted reference range: 3.93 - 5.25 10*6/?L. The reference range was not used to interpret this result as normal/abnormal. HGB (test code = 718-7) 10.9 g/dL 11.6-15.0 L HCT (test code = 4544-3) 34.4 % 35.7-45.2 L MCV (test code = 787-2) 91.2 fL 80.6-95.5 MCH (test code = 785-6) 28.9 pg 25.9-32.8 MCHC (test code = 786-4) 31.7 g/dL 31.6-35.1 RDW-SD (test code = 60233-7) 44.5 fL 39.0-49.9 RDW-CV (test code = 788-0) 13.4 % 12.0-15.5 PLT (test code = 777-3) See_Comment [Automated messa ge] The system which generated this result transmitted reference range: 166 - 358 10*3/?L. The reference range was not used to interpret this result as normal/abnormal. MPV (test code = 44428-2) 10.6 fL 9.5-12.9 NRBC/100 WBC (test code = 4545577270) See_Comment [Automated me ssage] The system which generated this result transmitted reference range: 0.0 - 10.0 /100 WBCs. The reference range was not used to interpret this result as normal/abnormal. NRBC x10^3 (test code = 7198611317) See_Comment [Automated messa ge] The system which generated this result transmitted reference range: 10*3/?L. The reference range was not used to interpret this result as normal/abnormal. GRAN MAT (NEUT) % (test code = 770-8) 58.0 % IMM GRAN % (test code = 0496058203) 0.20 % LYMPH % (test code = 736-9) 22.4 % MONO % (test code = 5905-5) 6.3 % EOS % (test code = 713-8) 11.6 % BASO % (test code = 706-2) 1.5 % GRAN MAT x10^3(ANC) (test code = 8861914892) 3.06 10*3/uL 1.88-7.09 IMM GRAN x10^3 (test code = 7330704639) 0.00-0.06 LYMPH x10^3 (test code = 731-0) 1.18 10*3/uL 1.32-3.29 L MONO x10^3 (test code = 742-7) 0.33 10*3/uL 0.33-0.92 EOS x10^3 (test code = 711-2) 0.61 10*3/uL 0.03-0.39 H BASO x10^3 (test code = 704-7) 0.08 10*3/uL 0.01-0.07 H Lab Interpretation (test code = 81797-4) Abnormal [facility]. METABOLIC PANEL (07667)2022-01-16 21:17:59* Test Item Value Reference Range Interpretation Comme nts NA (test code = 1953660020) 140 mmol/L 135-145 K (test code = 3812910431) 4.4 mmol/L 3.5-5.0 CL (test code = 3026748000) 109 mmol/L 98-108 H CO2 TOTAL (test code = 4903657244) 23 mmol/L 23-31 AGAP (test code = 5944324733) 2-16 BUN (test code = 7709585080) 8 mg/dL 7-23 GLUCOSE (test code = 8189066765) 95 mg/dL 70-110 CREATININE (test code = 9777824913) 0.50 mg/dL 0.50-1.04 TOTAL BILI (test code = 7826387237) 0.4 mg/dL 0.1-1.1 CALCIUM (test code = 9728833295) 8.9 mg/dL 8.6-10.6 T PROTEIN (test code = 0341600606) 6.5 g/dL 6.3-8.2 ALBUMIN (test code = 6897184096) 4.1 g/dL 3.5-5.0 ALK PHOS (test code = 2874704340) 72 U/L 34-122 ALTv (test code = 1742-6) 14 U/L 5-35 AST(SGOT) (test code = 8281509783) 22 U/L 13-40 eGFR (test code = 1702163282) mL/min/1.73m2 EVERETTE (test code = EVERETTE) Association of Glomerular Filtration Rate (GFR) and Staging of Kidney Disease* + --+ --+ ------+| GFR (mL/min/1.73 m2) ?| With Kidney Damage ?| ?Without Kidney Damage+ --------+ --------+ +| ?>90 ?| ?Stage one ?| ? Normal ?+ ---+ ---+ -------+| ?60-89 ?| ?Stage two ?| ? Decreased GFR ? + --+ --+ ------+| ?30-59 ?| ?Stage three ?| ? Stage three ? + --+ --+ ------+| ?15-29 ?| ?Stage four ? | ? Stage four ?+ ---+ ---+ -------+| ?<15 (or dialysis) ? ?| ?Stage five ? | ? Stage five ?+ ---+ ---+ -------+ *Each stage assumes the associated GFR level has been in effect for at least three months. ?Stages 1 to 5, with or without kidney disease, indicate chronic kidney disease. Notes: Determination of stages one and two (with eGFR >59mL/min/1.73 m2) requires estimation of kidney damage for at least three months as defined by structural or functional abnormalities of the kidney, manifested by either:Pathological abnormalities or Markers of kidney damage (including abnormalities in the composition of the blood or urine or abnormalities in imaging tests). Lab Interpretation (test code = 12193-0) Abnormal [facility] [id number] 13:15:00* Test Item Value Reference Range Interpretation Comme nts POCT Glu (age>30days) (test code = 3342) Lab Interpretation (test cod e = 43206-7) Normal [facility] [id number] 13:15:00* Test Item Value Reference Range Interpretation Comme nts POCT Glu (age>30days) (test code = 3342) Lab Interpretation (test cod e = 44726-8) Normal [facility] METABOLIC PANEL (NA, K, CL, CO2, GLUCOSE, BUN, CREATININE, CA)2021-11-07 14:21:04* Test Item Value Reference Range Interpretation Comme nts NA (test code = 1997872657) 140 mmol/L 135-145 K (test code = 3378885051) 4.1 mmol/L 3.5-5 CL (test code = 4534326782) 105 mmol/L 98-108 CO2 TOTAL (test code = 0449666811) 31 mmol/L 23-31 AGAP (test code = 0032692599) 2-16 BUN (test code = 1740717018) 12 mg/dL 7-23 GLUCOSE (test code = 1195692907) 102 mg/dL 70-110 CREATININE (test code = 7726799915) 0.59 mg/dL 0.5-1.04 CALCIUM (test code = 3187162105) 9.3 mg/dL 8.6-10.6 eGFR (test code = 5314660391) mL/min/1.73m2 EVERETET (test code = EVERETTE) Association of Glomerular Filtration Rate (GFR) and Staging of Kidney Disease* + + +- +| GFR (mL/min/1.73 m2) ?| With Kidney Damage ?| ?Without Kidney Damage+ ------+ ----+ ------+| ?>90 ?| ?Stage one ?| ? Normal ?+ -+ + -+| ?60-89 ?| ?Stage two ?| ? Decreased GFR ? + + +- +| ?30-59 ?| ?Stage three ?| ? Stage three ? + + +- +| ?15-29 ?| ?Stage four ? | ? Stage four ?+ -+ + -+| ?<15 (or dialysis) ? ?| ?Stage five ? | ? Stage five ?+ -+ + -+ *Each stage assumes the associated GFR level has been in effect for at least three months. ?Stages 1 to 5, with or without kidney disease, indicate chronic kidney disease. Notes: Determination of stages one and two (with eGFR >59mL/min/1.73 m2) requires estimation of kidney damage for at least three months as defined by structural or functional abnormalities of the kidney, manifested by either:Pathological abnormalities or Markers of kidney damage (including abnormalities in the composition of the blood or urine or abnormalities in imaging tests). [facility] WITHOUT [id number] 13:44:42* Test Item Value Reference Range Interpretation Comme nts WBC (test code = 6690-2) See_Comment [StreetOwl] The system which generated this result transmitted reference range: 4.30 - 11.10 10*3/?L. The reference range was not used to interpret this result as normal/abnormal. RBC (test code = 789-8) See_Comment [StreetOwl] The system which generated this result transmitted reference range: 3.93 - 5.25 10*6/?L. The reference range was not used to interpret this result as normal/abnormal. HGB (test code = 718-7) 14.2 g/dL 11.6-15 HCT (test code = 4544-3) 43.6 % 35.7-45.2 MCH (test code = 785-6) 28.9 pg 25.9-32.8 MCV (test code = 787-2) 88.8 fL 80.6-95.5 MCHC (test code = 786-4) 32.6 g/dL 31.6-35.1 PLT (test code = 777-3) See_Comment [Automated Newvema ge] The system which generated this result transmitted reference range: 166 - 358 10*3/?L. The reference range was not used to interpret this result as normal/abnormal. MPV (test code = 84672-7) 10.5 fL 9.5-12.9 RDW-CV (test code = 788-0) 13.2 % 12-15.5 RDW-SD (test code = 61139-1) 43.3 fL 39-49.9 NRBC x10^3 (test code = 1799826678) See_Comment [Automated me ssage] The system which generated this result transmitted reference range: 10*3/?L. The reference range was not used to interpret this result as normal/abnormal. NRBC/100 WBC (test code = 9781749584) See_Comment [Automated Presdo ssage] The system which generated this result transmitted reference range: 0.0 - 10.0 /100 WBCs. The reference range was not used to interpret this result as normal/abnormal. IPF % (test code = 2332728416) [facility] 13:25:58* Test Item Value Reference Range Interpretation Comme nts HGB A1C (test code = 4548-4) 5.8 % 4-5.7 H EVERETTE (test code = EVERETTE) Reference RangesNormal: <5.7%Prediabetes: 5.7 - 6.4%Diabetes: > 6.5% Lab Interpretation (test code = 29940-1) [facility] [id number] 10:04:00EXAM: FLUOROSCOPY BARIUM UPPER GI DOUBLE CONTRASTDATE: 12/07/2017 10:04 AM CDTINDICATION: - GERDADDITIONAL INFORMATION: None.COMPARISON: None.TECHNIQUE: Upper GI was performed using double contrast technique orally. FLUOROSCOPY TIME: 1 minute 11 secondsDISCUSSION:Preliminary radiograph: Normal.Swallowing: Normal.Esophagus:Motility: Normal.Anatomy: No filling defects, mucosal irregularities, obstructions or extrinsiccompressions identified.Hiatal hernia: None.Gastroesophageal reflux: Reflux contrast was present with contrast seenrefluxing into the midportion of the esophagus.Stomach: Normal.Duodenum: Normal.IMPRESSION:1. Study positive for gastroesophageal reflux2. No paraesophageal or hiatal hernia appreciated.3. No other abnormality visualized on study--This report was dictated by a Electrician Rectifier Maintenance/Fellow. I have personallyreviewed the images aswell as the Resident's interpretation and agree with the findings.Read by: Stanislaw Cline Resident: Roopa ClineDictated Date/time: 12/07/17 13:48Electronically Signed by: Parish Cunha MD 12/08/1815:54FINAL REPORTUT [facility] Glucose, Blood 2016-07-11 10:05:00* Test Item Value Reference Range Interpretation Comme nts POC Glucose (test code = POCGLUC) 89 mg/dL 70-115 N If you consider your patient critically ill, the Higinio Accu-Chek InformII metershould not be used for Glucose determinations.Draw a venous Glucose and send to the Main Lab for Analysis. Notes Pelvis with Pelvis Transvaginal US : Mar 31, 2013 08:44:00 AM.TECHNIQUE:The ovaries and adnexa were not well seen on the transabdominal study andFINDINGS:IMPRESSION: Date/Time Note Provider Source 2024-06-26 11:15:00 Images from the original note were not included. Venipuncture collection performed by clean technique on the right forearm(s). Total of 1 attempts were made. Slight pressure and a bandage/dressing were applied to the site(s). The patient experienced no complications. The following specimens were processed according to instructions and sent to [facility] laboratories per lab order on 06/26/2024 : LT BLUE SST 2 RED LAV 1 PPT DK GREEN (LiHep) DK GREEN (SodH) FRANKLIN DK BLUE (K2) DK BLUE (S) ACD Blood Culture NIPT/NTD Patient has been identified by and name and was provided with cup, antiseptic towelette, and clean catch instructions. 1 urine specimen(s) sent. Unpreserved 1 Urine Culture Aptima tube Other urine [facility] 2024-04-03 13:06:04 Please facilitate office visit [facility] 2024-04-03 12:17:12 Last Refilled: Disp Refills Start End TEX lisinopriL 2.5 mg tablet 90 tablet 0 03/03/2024 -- -- Sig: Take 1 tablet by mouth in the morning. Sent to pharmacy as: lisinopriL 2.5 mg tablet (PRINIVIL,ZESTRIL) Class: eRX Route: Oral Order: [id number] Date/Time Signed: 03/03/2024 07:53 E-Prescribing Status: Receipt confirmed by pharmacy (03/03/2024 7:53 AM BROOMCORN SCRAPER) Disp Refills Start End TEX omeprazole 40 mg capsule 90 capsule 1 09/19/2023 -- -- Sig: Take 1 capsule by mouth in the morning. Sent to pharmacy as: omeprazole 40 mg capsule,delayed release (PRILOSEC) Class: eRX Route: Oral Order: [id number] Date/Time Signed: 09/19/2023 08:01 E-Prescribing Status: Receipt confirmed by pharmacy (09/19/2023 8:02 AM CDT) Notes: Recent Visits Date Type Provider Dept 12/10/23 Office Visit Camilo Monsalve FNP [facility] 10/15/23 Office Visit Camilo Monsalve FNP [facility] 09/05/23 Office Visit Brigitte Freeman PA [facility] 06/28/23 Office Visit Camilo Monsalve FNP [facility] 03/27/23 Office Visit Camilo Monsalve FNP [facility] 03/06/23 Office Visit Camilo Monsalve FNP [facility] Showing recent visits within past 540 days with a meds authorizing provider and meeting all other requirements Future Appointments No visits were found meeting these conditions. Showing future appointments within next 150 days with a meds authorizing provider and meeting all other requirements [facility] 2024-04-03 12:15:44 Last Refilled: Disp Refills Start End TEX escitalopram oxalate 20 mg tablet 90 tablet 0 12/11/2023 -- -- Sig: Take 1 tablet by mouth in the morning. Sent to pharmacy as: escitalopram 20 mg tablet (LEXAPRO) Class: eRX Route: Oral Order: [id number] Date/Time Signed: 12/11/2023 13:54 Notes: Recent Visits Date Type Provider Dept 12/10/23 Office Visit Camilo Monsalve FNP [facility] 10/15/23 Office Visit Camilo Monsalve FNP [facility] 09/05/23 Office Visit Brigitte Freeman PA [facility] 06/28/23 Office Visit Camilo Monsalve GLAZE HANDLER [facility] 03/27/23 Office Visit Camilo Monsalve FNP [facility] 03/06/23 Office Visit Camilo Monsalve GLAZE HANDLER [facility] Showing recent visits within past 540 days with a meds authorizing provider and meeting all other requirements Future Appointments No visits were found meeting these conditions. Showing future appointments within next 150 days with a meds authorizing provider and meeting all other requirements 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 Visit on 09/10/2023 Component Date Value WBC 09/10/2023 5.61 RBC 09/10/2023 4.95 HGB 09/10/2023 13.3 HCT 09/10/2023 41.6 MCV 09/10/2023 84.0 MCH 09/10/2023 26.9 MCHC 09/10/2023 32.0 RDW-SD 09/10/2023 43.9 RDW-CV 09/10/2023 14.6 PLT 09/10/2023 272 MPV 09/10/2023 11.7 NRBC/100 WBC 09/10/2023 0.0 NRBC x10 3 09/10/2023 <0.01 GRAN MAT (NEUT) % 09/10/2023 61.2 IMM GRAN % 09/10/2023 0.40 LYMPH % 09/10/2023 25.1 MONO % 09/10/2023 8.9 EOS % 09/10/2023 3.2 BASO % 09/10/2023 1.2 GRAN MAT x10 3 (ANC) 09/10/2023 3.43 IMM GRAN x10 3 09/10/2023 <0.03 LYMPH x10 3 09/10/2023 1.41 MONO x10 3 09/10/2023 0.50 EOS x10 3 09/10/2023 0.18 BASO x10 3 09/10/2023 0.07 NA 09/10/2023 139 K 09/10/2023 4.0 CL 09/10/2023 107 CO2 TOTAL 09/10/2023 22 (L) AGAP 09/10/2023 10 BUN 09/10/2023 12 GLUCOSE 09/10/2023 91 CREATININE 09/10/2023 0.52 TOTAL BILI 09/10/2023 0.6 CALCIUM 09/10/2023 9.2 T PROTEIN 09/10/2023 7.1 ALBUMIN 09/10/2023 4.2 ALK PHOS 09/10/2023 90 ALTv 09/10/2023 14 AST(SGOT) 09/10/2023 24 eGFR 09/10/2023 106.5 HGB A1C 09/10/2023 5.5 CHOL 09/10/2023 171 HDL 09/10/2023 63 HDLC RATIO 09/10/2023 2.7 TRIG 09/10/2023 126 LDL CHOL 09/10/2023 83 VLDL 09/10/2023 25 VIT D 25OH 09/10/2023 46 TSH 09/10/2023 0.91 Office Visit on 09/05/2023 Component Date Value POCT U SP GRAV 09/05/2023 1.030 (A) POCT PH U 09/05/2023 5 POCT U LEUK EST 09/05/2023 + POCT U NIT 09/05/2023 Positive POCT U PROT 09/05/2023 Trace POCT U GLU 09/05/2023 Normal POCT U KETONE 09/05/2023 Negative POCT U UROBILI 09/05/2023 Normal POCT U BILI 09/05/2023 Negative POCT U BLD 09/05/2023 250 URINE CULTURE 09/05/2023 >100,000 CFU/mL Klebsiella pneumoniae (A) Urgent Care on 08/20/2023 Component Date Value POCT SARS-COV-2 ANTIGEN 08/20/2023 Not Detected On board controls accept* 08/20/2023 Yes POCT Molecular Strep 08/20/2023 Negative [facility] 2024-03-03 07:52:37 Last Refilled: Disp Refills Start End TEX lisinopriL 2.5 mg tablet 90 tablet 0 01/14/2024 -- -- Sig: Take 1 tablet by mouth in the morning. Sent to pharmacy as: lisinopriL 2.5 mg tablet (PRINIVIL,ZESTRIL) Class: eRX Route: Oral Order: [id number] Date/Time Signed: 01/14/2024 09:57 Notes: Recent Visits Date Type Provider Dept 12/10/23 Office Visit Camilo Monsalve FNP [facility] 10/15/23 Office Visit Camilo Monsalve FNP [facility] 09/05/23 Office Visit Brigitte Freeman PA [facility] 06/28/23 Office Visit Camilo Monsalve FNP [facility] 03/27/23 Office Visit Camilo Monsalve FNP [facility] 03/06/23 Office Visit Camilo Monsalve GLAZE HANDLER [facility] Showing recent visits within past 540 days with a meds authorizing provider and meeting all other requirements Future Appointments No visits were found meeting these conditions. Showing future appointments within next 150 days with a meds authorizing provider and meeting all other requirements [facility] 2024-02-28 15:14:16 sent [facility] 2024-02-26 16:26:55 Images from the original note were not included. Notes: 12/11/23 Last Refilled: [facility] - [address] [place] [address] Recent Visits Date Type Provider Dept 12/10/23 Office Visit Camilo Monsalve FNP [facility] 10/15/23 Office Visit Camilo Monsalve, GLAZE HANDLER [facility] 09/05/23 Office Visit Brigitte Freeman PA [facility] 06/28/23 Office Visit Camilo Monsalve, GLAZE HANDLER [facility] 03/27/23 Office Visit Camilo Monsalve GLAZE HANDLER [facility] 03/06/23 Office Visit Camilo Monsalve, GLAZE HANDLER [facility] Showing recent visits within past 540 days with a meds authorizing provider and meeting all other requirements Future Appointments No visits were found meeting these conditions. Showing future appointments within next 150 days with a meds authorizing provider and meeting all other requirements tirzepatide (MOUNJARO) 10 mg/0.5 mL subcutaneous injection pen Sig: inject 10 mg under the skin weekly. Disp: 6 mL Refills: 0 Start: 02/25/2024 Class: eRX Non-formulary For: Controlled type 2 diabetes mellitus without complication, without long-term current use of insulin; Obesity (BMI 30-39.9) Last ordered: 2 months ago (12/11/2023) by CHARLES Fowler Last dispensed: 02/11/2024 Rx #: [id number] Off-Protocol Pbacpg8602/26/2024 01:21 PM Protocol Details Medication not assigned to a protocol, forward to provider. Valid encounter within last 12 months To be filled at: [facility] - [address] [place] [address] A Mark MA [facility] 2024-02-26 13:17:02 Pt is checking the status for her tirzepatide (MOUNJARO) 10 mg/0.5 mL subcutaneous injection pen and states she is out of medication. Please send to [facility] in [place]. Pt states only has active insurance today and will not have insurance til March 29, 2024. Contact pt when processed. MCORN SCRAPER Cyndee Newberry [facility] 2024-01-14 09:55:42 Medication refilled per policy: Routing to selected pharmacy Last office visit: 12/10/23 Next office visit: not scheduled Requested Prescriptions Pending Prescriptions Disp Refills lisinopriL 2.5 mg tablet 90 tablet 0 Sig: Take 1 tablet by mouth in the morning. Last fill date: 12/17/23 Labs: K (mmol/L) Date Value 09/10/2023 4.0 CREATININE (mg/dL) Date Value 09/10/2023 0.52 Notes: Controlled type 2 diabetes mellitus without complication, without long-term current use of insulin Essential hypertension MCORN SCRAPER [facility] 2023-12-17 07:54:03 Last Refilled: Disp Refills Start End TEX lisinopriL 2.5 mg tablet 90 tablet 0 10/15/2023 -- No Sig: Take 1 tablet by mouth in the morning. Sent to pharmacy as: lisinopriL 2.5 mg tablet (PRINIVIL,ZESTRIL) Class: eRX Route: Oral Order: [id number] Date/Time Signed: 10/15/2023 09:17 E-Prescribing Status: Receipt confirmed by pharmacy (10/15/2023 9:17 AM CDT) Notes: Recent Visits Date Type Provider Dept 12/10/23 Office Visit Camilo Monsalve FNP [facility] 10/15/23 Office Visit Camilo Monsalve FNP [facility] 09/05/23 Office Visit Brigitte Freeman PA [facility] 06/28/23 Office Visit Camilo Monsalve FNP [facility] 03/27/23 Office Visit Camilo Monsalve FNP [facility] 03/06/23 Office Visit Camilo Monsalve FNP [facility] 07/14/22 Office Visit Camilo Monsalve FNP [facility] Showing recent visits within past 540 days with a meds authorizing provider and meeting all other requirements Future Appointments No visits were found meeting these conditions. Showing future appointments within next 150 days with a meds authorizing provider and meeting all other requirements [facility] 2023-12-10 16:41:56 Images from the original note were not included. Last Refilled: Disp Refills Start End TEX tirzepatide (MOUNJARO) 10 mg/0.5 mL subcutaneous injection 6 mL 0 12/10/2023 -- No Sig: inject 10 mg under the skin weekly. Sent to pharmacy as: Mounjaro 10 mg/0.5 mL subcutaneous pen injector (tirzepatide) Class: eRX Route: Subcutaneous Order: [id number] Date/Time Signed: 12/10/2023 16:06 E-Prescribing Status: Receipt confirmed by pharmacy (12/10/2023 4:07 PM CDT) Notes: tirzepatide (MOUNJARO) 10 mg/0.5 mL subcutaneous injection The original prescription was reordered on 12/10/2023 by Camilo Monsalve FNP. Renewing this prescription may not be appropriate. Possible duplicate: Hover to review recent actions on this medication Sig: inject 10 mg under the skin weekly. Disp: 2 mL Refills: 0 Start: 12/10/2023 Class: eRX Non-formulary For: Controlled type 2 diabetes mellitus without complication, without long-term current use of insulin; Obesity (BMI 30-39.9) Last ordered: 3 weeks ago (11/13/2023) by CHARLES Fowler Last dispensed: 11/14/2023 Rx #: [id number] Off-Protocol [id number]/10/2023 04:38 PM Protocol Details Medication not assigned to a protocol, forward to provider. Valid encounter within last 12 months To be filled at: [facility] - [address], [place] Recent Visits Date Type Provider Dept 10/15/23 Office Visit Camilo Monsalve GLAZE [facility]ER [facility] 09/05/23 Office Visit Brigitte Freeman PA [facility] 06/28/23 Office Visit Gricel Camilo [facility] 03/27/23 Office Visit Camilo Monsalve GLAZE HANDLER [facility] 03/06/23 Office Visit Gricel Camilo GLAZE [employer]LER [facility] 07/14/22 Office Visit Gricel Camilo GLAZE HAND[employer]ER [facility] Showing recent visits within past 540 days with a meds authorizing provider and meeting all other requirements Today's Visits Date Type Provider Dept 12/10/23 Office Visit Camilo Monsalve GLAZE HANDLER [facility] Showing today's visits with a meds authorizing provider and meeting all other requirements Future Appointments No visits were found meeting these conditions. Showing future appointments within next 150 days with a meds authorizing provider and meeting all other requirements [facility] 2023-11-26 12:01:17 Last Refilled: Disp Refills Start End TEX escitalopram oxalate 20 mg tablet 90 tablet 1 08/01/2023 -- -- Sig: Take 1 tablet by mouth in the morning. Sent to pharmacy as: escitalopram 20 mg tablet (LEXAPRO) Class: eRX Route: Oral Order: [id number] Date/Time Signed: 08/01/2023 10:01 Notes: Recent Visits Date Type Provider Dept 10/15/23 Office Visit Camilo Monsalve GLAZE [facility]ER [facility] 09/05/23 Office Visit Brigitte Freeman PA [facility] 06/28/23 Office Visit Camilo Monsalve GLAZE HANDLER [facility] 03/27/23 Office Visit Camilo Monsalve GLAZE HANDLER [facility] 03/06/23 Office Visit Camilo Monaslve GLAZE HANDLER [facility] 07/14/22 Office Visit Camilo Monsalve FNP [facility] Showing recent visits within past 540 days with a meds authorizing provider and meeting all other requirements Future Appointments Date Type Provider Dept 12/10/23 Appointment Camilo Monsalve FNP [facility] Showing future appointments within next 150 days with a meds authorizing provider and meeting all other requirements [facility] 2023-11-14 08:29:44 Patient notified via [employer] message Minda Ng MA [facility] 2023-11-13 17:49:40 reordered [facility] 2023-11-13 13:41:26 Images from the original note were not included. Notes: 10/15/23 Last Refilled: [facility] - [address] [place] [address] Recent Visits Date Type Provider Dept 10/15/23 Office Visit Camilo Monsalve FNP [facility] 09/05/23 Office Visit Brigitte Freeman PA [facility] 06/28/23 Office Visit Camilo Monsalve FNP [facility] 03/27/23 Office Visit Camilo Monsalve FNP [facility] 03/06/23 Office Visit Camilo Monsalve FNP [facility] 07/14/22 Office Visit Camilo Monsalve FNP [facility] Showing recent visits within past 540 days with a meds authorizing provider and meeting all other requirements Future Appointments Date Type Provider Dept 12/10/23 Appointment Camilo Monsalve FNP [facility] Showing future appointments within next 150 days with a meds authorizing provider and meeting all other requirements tirzepatide (MOUNJARO) 10 mg/0.5 mL subcutaneous injection Sig: inject 10 mg under the skin weekly. Disp: 2 mL Refills: 0 Start: 11/13/2023 Class: eRX Non-formulary For: Controlled type 2 diabetes mellitus without complication, without long-term current use of insulin; Obesity (BMI 30-39.9) Last ordered: 4 weeks ago (10/15/2023) by CHARLES Fowler Last dispensed: 10/18/2023 Rx #: [id number] Pharmacy comment: dose increase Off-Protocol Utncsi4911/13/2023 01:31 PM Protocol Details Medication not assigned to a protocol, forward to provider. Valid encounter within last 12 months To be filled at: [facility] - [address] [place] [address] Lynne Mark MA [facility] - [facility] 2023-10-12 13:53:19 From: Heather Martinez To: Office of Ramana Stockton Sent: 10/11/2023 4:35 PM CDT Subject: Medication Renewal Request Refills have been requested for the following medications: ERGOCALCIFEROL, VITAMIN D2, 1,250 mcg (50,000 unit) capsule [Camilo Monsalve] Preferred pharmacy: [facility] - [address] Delivery method: Pickup Component Latest Ref Rng 09/10/2023 8:00 AM VIT D 25OH 25 - 80 ng/mL 46 Recent Visits Date Type Provider Dept 09/05/23 Office Visit Brigitte Freeman PA [facility] 06/28/23 Office Visit Camilo Monsalve FNP [facility] 03/27/23 Office Visit Camilo Monsalve FNP [facility] 03/06/23 Office Visit Camilo Monsalve FNP [facility] 07/14/22 Office Visit Camilo Monsalve GLAZE HANDLER [facility] Showing recent visits within past 540 days with a meds authorizing provider and meeting all other requirements Future Appointments Date Type Provider Dept 10/15/23 Appointment Camilo MonsalveMITRAP [facility] 12/10/23 Appointment Camilo Monsalve GLAZE HANDLER [facility] Showing future appointments within next 150 days with a meds authorizing provider and meeting all other requirements Please review and sign if appropriate. [facility] 2023-09-13 12:52:18 Last Refilled: Disp Refills Start End TEX LISINOPRIL 5 mg tablet 90 tablet 1 05/02/2023 -- No Sig: TAKE 1 TABLET BY MOUTH EVERY DAY IN THE MORNING Sent to pharmacy as: lisinopriL 5 mg tablet (PRINIVIL,ZESTRIL) Class: eRX Route: Oral Order: [id number] Date/Time Signed: 05/02/2023 20:55 E-Prescribing Status: Receipt confirmed by pharmacy (05/02/2023 8:55 PM [employer] SCR[employer]) Recent Visits Date Type Provider Dept 09/05/23 Office Visit Brigitte Freeman PA [facility] 06/28/23 Office Visit Camilo MonsalveMITRAP [facility] 03/27/23 Office Visit Gricel MITRA ChristopherP [facility] 03/06/23 Office Visit Gricel Camilo GLAZE HAND[employer]ER [facility] 07/14/22 Office Visit Camilo Monsalve GLAZE HANDLER [facility] Showing recent visits within past 540 days with a meds authorizing provider and meeting all other requirements Future Appointments Date Type Provider Dept 12/10/23 Appointment Gricel MITRA ChristopherP [facility] Showing future appointments within next 150 days with a meds authorizing provider and meeting all other requirements' India Jeong [facility] 2023-09-10 08:15:00 Images from the original note were not included. Venipuncture collection performed by clean technique on the right hand. Total of 2 attempts were made. Slight pressure and a bandage/dressing were applied to the site(s). The patient experienced no complications. The following specimens were processed according to instructions and sent to [facility] laboratories per lab order on 09/10/2023 : LT BLUE SST 2 RED LAV 2 PPT DK GREEN (LiHep) DK GREEN (SodH) FRANKLIN DK BLUE (K2) DK BLUE (S) ACD Blood Culture NIPT/NTD Pt stated she only wanted labs for Pete Yulisa Fajardo 09/10/2023 8:02 AM [facility] 2023-08-01 10:01:16 Last Refilled: Disp Refills Start End TEX escitalopram oxalate 20 mg tablet 90 tablet 1 03/07/2023 -- No Sig: Take 1 tablet by mouth in the morning. Sent to pharmacy as: escitalopram 20 mg tablet (LEXAPRO) Class: eRX Route: Oral Order: [id number] Date/Time Signed: 03/07/2023 08:40 E-Prescribing Status: Receipt confirmed by pharmacy (03/07/2023 8:41 AM [facility] S[employer] Recent Visits Date Type Provider Dept 06/28/23 Office Visit Camilo Monsalve FNP [facility] 03/27/23 Office Visit Camilo Monsalve FNP [facility] 03/06/23 Office Visit Camilo Monsalve FNP [facility] 07/14/22 Office Visit Camilo Monsalve FNP [facility] Showing recent visits within past 540 days with a meds authorizing provider and meeting all other requirements Future Appointments Date Type Provider Dept 09/04/23 Appointment Camilo Monsalve FNP [facility] Showing future appointments within next 150 days with a meds authorizing provider and meeting all other requirements India Jeong [facility] 2023-07-31 08:29:35 Images from the original note were not included. Requested Renewals Name from pharmacy: Vitamin D (Ergocalciferol) 1.25 MG (11373 UT) Oral Capsule Will file in chart as: ERGOCALCIFEROL, VITAMIN D2, 1,250 mcg (50,000 unit) capsule Sig: TAKE ONE CAPSULE BY MOUTH ONE TIME PER WEEK Disp: 12 capsule Refills: 0 Start: 07/30/2023 Class: eRX Last refill: 05/05/2023 Off-Protocol Znvqxk9707/30/2023 06:03 PM Protocol Details Medication not assigned to a protocol, forward to provider. Valid encounter within last 12 months To be filled at: [facility] [address] [place] [address] Recent Visits Date Type Provider Dept 06/28/23 Office Visit Camilo Monsalve FNP [facility] 03/27/23 Office Visit Camilo Monsalve FNP [facility] 03/06/23 Office Visit Camilo Monsalve FNP [facility] 07/14/22 Office Visit Camilo Monsalve FNP [facility] Showing recent visits within past 540 days with a meds authorizing provider and meeting all other requirements Future Appointments Date Type Provider Dept 09/04/23 Appointment Camilo Monsalve FNP [facility] Showing future appointments within next 150 days with a meds authorizing provider and meeting all other requirements Kyra Navarrete LVN [facility] [employer] 2023-06-28 13:30:00 Addended by: SITA MONSALVE DNP, CYNTHIA O on: 06/28/2023 05:06 PM Modules accepted: Level of Service T [facility] [employer] 2023-06-21 08:40:53 Images from the original note were not included. Requested Renewals tirzepatide (MOUNJARO) 5 mg/0.5 mL subcutaneous injection Sig: inject 5 mg under the skin weekly. Disp: 4 mL Refills: 0 Start: 06/21/2023 Class: eRX Non-formulary For: Controlled type 2 diabetes mellitus without complication, without long-term current use of insulin; Morbid obesity Last ordered: 2 months ago (03/27/2023) by CHARLES Fowler Last dispensed: 05/28/2023 Rx #: [id number] Off-Protocol Lmmipo3306/21/2023 08:32 AM Protocol Details Medication not assigned to a protocol, forward to provider. Valid encounter within last 12 months To be filled at: [facility] - [address] [place] [address] Recent Visits Date Type Provider Dept 03/27/23 Office Visit Camilo Monsalve FNP [facility] 03/06/23 Office Visit Camilo Monsalve FNP [facility] 07/14/22 Office Visit Camilo Monsalve FNP [facility] 01/13/22 Office Visit Camilo Monsalve FNP [facility] Showing recent visits within past 540 days with a meds authorizing provider and meeting all other requirements Future Appointments Date Type Provider Dept 06/28/23 Appointment Camilo Monsalve FNP [facility] 09/04/23 Appointment Camilo Monsalve FNP [facility] Showing future appointments within next 150 days with a meds authorizing provider and meeting all other requirements Kyra Navarrete LVN [facility] 2023-05-29 12:24:31 Heather Martinez is a 62 year old female is requesting that the mometasone be sent to; [facility] [address] [place] [id number] Amador Jessica [facility] 2023-05-29 10:37:11 Copied from [facility] #[id number]. 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 Changes Requested Name from pharmacy: LISINOPRIL 5 MG TABLET Will file in chart as: LISINOPRIL 5 mg tablet Sig: TAKE 1 TABLET BY MOUTH EVERY DAY IN THE MORNING Disp: 90 tablet Refills: 1 Start: 05/01/2023 Class: eRX For: Controlled type 2 diabetes mellitus without complication, without long-term current use of insulin Last ordered: 3 weeks ago (04/09/2023) by CHARLES Fowler Last refill: 04/09/2023 Rx #: [id number] Pharmacy comment: REQUEST FOR 90 DAYS PRESCRIPTION. DX Code Needed. Cardiovascular: OLIVER Inhibitors Kqouav8705/01/2023 10:32 AM Protocol Details Valid encounter within last 12 months K in normal range and within 360 days Cr in normal range and within 360 days This request has changes from the previous prescription. To be filled at: [facility]/pharmacy #[id number] - [address] Recent Visits Date Type Provider Dept 03/27/23 Office Visit Camilo Monsalve FNP [facility] 03/06/23 Office Visit Camilo Monsalve FNP [facility] 07/14/22 Office Visit Camilo Monsalve FNP [facility] 01/13/22 Office Visit Camilo Monsalve FNP [facility] Showing recent visits within past 540 days with a meds authorizing provider and meeting all other requirements Future Appointments Date Type Provider Dept 06/28/23 Appointment Camilo Monsalve FNP [facility] 09/04/23 Appointment Camilo Monsalve FNP [facility] Showing future appointments within next 150 days with a meds authorizing provider and meeting all other requirements A Navarrete LVN [facility] 2023-04-09 11:15:14 Images from the original note were not included. lisinopriL 5 mg tablet Sig: Take 1 tablet by mouth in the morning. Disp: 30 tablet Refills: 0 Start: 04/08/2023 Class: eRX Non-formulary For: Controlled type 2 diabetes mellitus without complication, without long-term current use of insulin Last ordered: 1 month ago (02/26/2023) by CHARLES Fowler Cardiovascular: OLIVER Inhibitors Lnraor4804/08/2023 12:45 PM Protocol Details Valid encounter within last 12 months K in normal range and within 360 days Cr in normal range and within 360 days To be filled at: [facility]/pharmacy #[id number] Recent Visits Date Type Provider Dept 03/27/23 Office Visit Camilo Monsalve FNP [facility] 03/06/23 Office Visit Camilo Monsalve FNP [facility] 07/14/22 Office Visit Camilo Monsalve FNP [facility] 01/13/22 Office Visit Camilo Monsalve FNP [facility] Showing recent visits within past 540 days with a meds authorizing provider and meeting all other requirements Future Appointments Date Type Provider Dept 06/28/23 Appointment Camilo Monsalve FNP [facility] 09/04/23 Appointment Camilo Monsalve FNP [facility] Showing future appointments within next 150 days with a meds authorizing provider and meeting all other requirements A Ng MA [facility] 2023-03-16 15:25:00 Which medication? [facility] 2023-03-16 10:40:45 Outpatient Medication Detail Disp Refills Start End TEX levalbuterol (XOPENEX HFA) 45 mcg/actuation inhaler 15 g 0 03/15/2023 -- -- Sig: Inhale 1-2 Puffs every 4 (four) hours as needed for Wheezing or Bronchospasm. 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 Medication is listed as historical med. A Snowden RN [facility] 2023-03-15 13:10:36 Please resend to the requested pharmacy [facility] 2023-03-09 15:26:52 Images from the original note were not included. Last Refilled: 03/04/22 Notes: [id number] [address] Recent Visits Date Type Provider Dept 03/06/23 Office Visit Camilo Monsalve FNP [facility] 07/14/22 Office Visit Camilo Monsalve FNP [facility] 01/13/22 Office Visit Camilo Monsalve FNP [facility] Showing recent visits within past 540 days with a meds authorizing provider and meeting all other requirements Future Appointments No visits were found meeting these conditions. Showing future appointments within next 150 days with a meds authorizing provider and meeting all other requirements codeine-guaifenesin 10-100 mg/5 mL oral solution Possible duplicate: Hover to review recent actions on this medication Sig: Take 5 mL by mouth every 6 (six) hours as needed for Cough. Indications: acute pain important Maximum MME cannot be calculated for this prescription. Enter discrete sig details to calculate maximum MME. Disp: 140 mL Refills: 0 Start: 03/09/2023 Class: eRX Non-formulary For: Influenza A Last ordered: 5 days ago (03/04/2023) by CHARLES Knapp Provider Review Required Hrcocv0603/09/2023 01:42 PM Protocol Details Valid encounter within last 12 months This refill cannot be delegated To be filled at: [facility]/pharmacy #[id number] A Mark MA [facility] 2023-03-07 08:33:46 Last Refilled: Disp Refills Start End TEX escitalopram oxalate 20 mg tablet 30 tablet 0 02/12/2023 -- -- Sig: Take 1 tablet by mouth in the morning. MUST BE SEEN FOR FURTHER REFILLS Sent to pharmacy as: escitalopram 20 mg tablet (LEXAPRO) Class: eRX Notes to Pharmacy: MUST BE SEEN FOR FURTHER REFILLS Route: Oral Order: [id number] Date/Time Signed: 02/12/2023 10:07 E-Prescribing Status: Receipt confirmed by pharmacy (02/12/2023 10:07 AM [facility]) Notes: Recent Visits Date Type Provider Dept 03/06/23 Office Visit Camilo Monsalve CHARLES [facility] 07/14/22 Office Visit Camilo Monsalve CHARLES [facility] 01/13/22 Office Visit Camilo Monsalve FNP [facility] Showing recent visits within past 540 days with a meds authorizing provider and meeting all other requirements Future Appointments No visits were found meeting these conditions. Showing future appointments within next 150 days with a meds authorizing provider and meeting all other requirements [employer] SCR[employer] Karen Stanley RN [facility] 2023-03-06 16:30:00 Images from the original note were not included. Venipuncture collection performed by clean technique on the left anticubitus. Total of 1 attempts were made. Slight pressure and a bandage/dressing were applied to the site(s). The patient experienced no complications. The following specimens were processed according to instructions and sent to [facility] laboratories per lab order on today: LT BLUE SST 1 RED LAV 2 PPT DK GREEN (LiHep) DK GREEN (SodH) FRANKLIN DK BLUE (K2) DK BLUE (S) ACD Blood Culture NIPT/NTD Patient has been identified by name and was provided with cup, antiseptic towelette, and clean catch instructions. 2 urine specimen(s) sent. Unpreserved 1 Urine Culture 1 Aptima tube Other urine [facility] 2023-03-06 16:00:00 Addended by: CHARLES MONSALVE DNP-CAMILO MOSELEY on: 03/15/2023 06:05 PM Modules accepted: Orders [facility] 2023-03-01 17:46:38 Please let patient know [facility] 2023-03-01 13:28:11 LAINE [facility] SCRAPER Mary Escobar MA [facility] 2023-03-01 12:14:45 [facility] mail order pharmacy calling to let the dr know that the wegovy is currently on back order and they are not sure when it will be back in stock. Ref# [id number] [facility] S[employer]ER Jojo Espinoza [facility] 2023-02-27 08:54:40 [facility], to schedule a follow up appointment for medication refill. If pt return call please assist. A Chowdhury [facility] 2023-02-24 07:33:27 Please facilitate a follow up appointment with me, thanks. Double book on a if you must. [facility] 2023-02-23 08:57:42 Please review and sign if appropriate: *Patient requesting increase in Wegovy if appropriate Last office visit: 07/14/22 Next office visit: not scheduled Requested Prescriptions Pending Prescriptions Disp Refills semaglutide, weight loss, (WEGOVY) 0.25 mg/0.5 mL PnIj SC injection 4 Pen 0 Sig: inject 0.25 mg under the skin weekly. Last refill date: 08/07/22 Labs: HGB A1C (%) Date Value 07/17/2022 5.5 Notes: Controlled type 2 diabetes mellitus without complication, without long-term current use of insulin (primary encounter diagnosis) Comment: chronic Plan: tirzepatide (MOUNJARO) 2.5 mg/0.[address] of victoza to maximize weight loss. [facility] 2022-09-13 10:08:54 Formatting of this n ote is different from the original. Order History 8 months ago (01/13/2022) lisinopriL 5 mg tablet Take 1 tablet by mouth in the morning. Dispense: 90 tablet Refills: 1 Start: 01/13/2022 By: Camilo Monsalve FNP Encounter Recent Visits Date Type Provider Dept 07/14/22 Office Visit Camlio Monsalve FNP [facility] 01/13/22 Office Visit Camilo Monsalve FNP [facility] Showing recent visits within past 540 days with a meds authorizing provider and meeting all other requirements Future Appointments No visits were found meeting these conditions. Showing future appointments within next 150 days with a meds authorizing provider and meeting all other requirements Kyra Navarrete LVN [facility] 2013-03-31 08:03:27 Name: HEATHER JARAMILLO : 1960 SEX: F Ordering Physician: Ashley Mauro CLINICAL INDICATION: 625.0 DYSPAREUNIA Comparison Examination: None A real-time transabdominal and transvaginal sonographic evaluation of the pelvis was performed. transvaginal assessment was therefore warranted. The transabdominal images reveal a normal bladder. The uterus is absent. The ovaries are not visualized. There are no masses or fluid collections identified within the pelvis. There are no adnexal lesions. No free fluid is identified. Post hysterectomy. Ovaries not visualized and likely surgically absent. No adnexal masses or free fluid. [facility] Out[facility] 2013-03-31 08:03:27 Name: HEATHER JARAMILLO : 1960 SEX: F Ordering Physician: Ashley [...] absent. No adnexal masses or free fluid. [facility]"
[2024-07-06] MEDS ORDERED: METOCLOPRAMIDE 10 MG/2mL INJ ONE (22:38)
[2024-07-06] MEDS ORDERED: FENTANYL CITR 100 MCG/2 ML ONE (22:38)
[2024-07-06] MEDS ORDERED: DIPHENHYDRAMINE 50 MG/ML VIAL ONE (22:38)
[2024-07-06] MEDS ORDERED: FAMOTIDINE 20 MG/2 ML VIAL IV ONE (22:39)
[2024-07-06] MEDS ORDERED: NA CHLORIDE 0.9% 1,000 ML ONE (22:39)
[2024-07-06 23:18] LABS: Absolute Basophils 0.1 K/uL (0-0.5); Absolute Eosinophils 0.1 K/uL (0-0.5); Absolute Lymphocytes (CBC) 1.5 K/uL (0.7-4.9); Absolute Monocytes 0.6 K/uL (0.1-1.3); Absolute Neutrophil 7.6 K/uL (1.8-8.0); Basophils % 0.8 % (0-1.3); Eosinophils % 0.9 % (0-4.4); Hemoglobin 15.4 g/dL (12.0-15.0); Lymphocytes % 15.4 % (15.3-44.8); MCH 28.1 pg (27.0-35.0); MCHC 34.3 g/dL (32.0-36.0); MCV 81.8 fL (80-100); Monocytes % 6.1 % (3.3-12.3); Neutrophils % 76.8 % (41.7-73.7); Nucleated Red Blood Cells % 0.1 % (0-0); Platelets 277 thou/uL (152-406); Red Cell Distribution Width 15.2 % (12.1-15.2)
[2024-07-06 23:24] LABS: PT Prothrombin Time 10.9 SECONDS (10-13.0); Protime INR 0.95
[2024-07-06 23:36] LABS: ALT/SGPT 17 U/L (13-56); AST/SGOT 17 U/L (15-37); Albumin 4.2 g/dL (3.4-5.0); Albumin/Globulin Ratio 1.1 (1.1-1.8); Alkaline Phosphatase 78 U/L (45-117); Anion Gap 12.6 mEq/L (5.0-15.0); BUN Blood Urea Nitrogen 8 mg/dL (7-18); Bicarbonate 23 mEq/L (21-32); Bilirubin Total 0.7 mg/dL (0.2-1.0); Globulin 3.7 g/dL (2.3-3.5); Glomerular Filtration Rate 84 ml/min (=/>90); Glucose Level 141 mg/dL (74-106); Lipase 37 U/L (13-75); Magnesium 2.1 mg/dL (1.6-2.4); Potassium 3.6 mEq/L (3.5-5.1); Protein, Total 7.9 g/dL (6.4-8.2); Sodium Level 137 mEq/L (136-145); Troponin High Sensitivity 3.3 pg/mL (<58.9)
[2024-07-06 23:57] LABS: Band Neutrophils 2 % (0-1); Differential Total Cells Count 100; Lymphocytes 10 % (15-42); Monocytes 7 % (0-10); Reactive Lymphocytes 9 %; Segmented Neutrophils 72 % (40-80)
[2024-07-06 23:59] LABS: Bilirubin Direct < 0.2 mg/dL (0-0.2); Bilirubin Indirect, Calculated 0.5 mg/dL (0.2-0.8)
[2024-07-07 00:06] LABS: Blood Morphology Comment NOT SEEN (NOT SEEN); Platelet Estimate ADEQ
--- NOTE | 2024-07-07 02:19 | ER ---
Nurse's Notes [facility] Name: Heather Martinez Age: 63 yrs Sex: Female : 1960 Arrival Date: 07/06/2024 Time: 21:44 Bed 19 Private MD: Diagnosis: Ileus, unspecified;Nausea with vomiting, unspecified;Epigastric pain Presentation: 07/06 22:01 Chief complaint: Patient states: STOMACH PAIN THAT RADIATES TO LOWER BACK, N/V SINCE dd2 9AM. Coronavirus screen: At this time, the client does not indicate any symptoms associated with coronavirus-19. Ebola Screen: No symptoms or risks identified at this time. Initial Sepsis Screen: Does the patient meet any 2 criteria? No. Patient's initial sepsis screen is negative. Does the patient have a suspected source of infection? No. Patient's initial sepsis screen is negative. Risk Assessment: Do you want to hurt yourself or someone else? Patient reports no desire to harm self or others. Onset of symptoms was July 06, 2024 at 09:00. 22:01 Method Of Arrival: Ambulatory dd2 22:01 Acuity: CYN 3 dd2 Triage Assessment: 22:04 General: Appears in no apparent distress. uncomfortable, Behavior is calm, cooperative, dd2 appropriate for age. Pain: Complains of pain in low back area, right lower quadrant and left lower quadrant Pain currently is 9 out of 10 on a pain scale. GI: Abdomen is non-distended, Abd is soft X 4 quads Abdomen is tender to palpation in umbilical area, right lower quadrant and left lower quadrant Reports lower abdominal pain, cramping, nausea, vomiting. Historical: - Allergies: 22:04 PENICILLINS; dd2 - PMHx: 22:04 Anemia; Anxiety; Diabetes - IDDM; GERD; Hypertension; dd2 - PSHx: 22:04 Appendectomy; Cholecystectomy; HYSTERECTOMY; GASTRIC SLEEVE; LT KNEE SX; dd2 - Immunization history:: Adult Immunizations up to date. - Infectious Disease History:: Denies. - Social history:: Smoking status: Patient denies any tobacco usage or history of. Screenin/12 01:03 [facility] ED Fall Risk Assessment (Adult) History of falling in the last 3 months, jb4 including since admission No falls in past 3 months (0 pts) Confusion or Disorientation No (0 pts) Intoxicated or Sedated No (0 pts) Impaired Gait No (0 pts) Mobility Assist Device Used No (0 pt) Altered Elimination No (0 pt) Score/Fall Risk Level 0 - 2 = Low Risk Oriented to surroundings, Maintained a safe environment. Abuse screen: Denies threats or abuse. Nutritional screening: No deficits noted. Tuberculosis screening: No symptoms or risk factors identified. Assessment: 07/06 23:48 Reassessment: Patient appears in no apparent distress at this time. Patient and/or jb4 family updated on plan of care and expected duration. Pain level reassessed. Patient is alert, oriented x 3, equal unlabored respirations, skin warm/dry/pink. Patient states feeling better. Patient states symptoms have improved. 07/07 01:00 Reassessment: Patient appears in no apparent distress at this time. Patient and/or jb4 family updated on plan of care and expected duration. Pain level reassessed. Patient is alert, oriented x 3, equal unlabored respirations, skin warm/dry/pink. 01:57 Reassessment: Patient appears in no apparent distress at this time. Patient and/or jb4 family updated on plan of care and expected duration. Pain level reassessed. Patient is alert, oriented x 3, equal unlabored respirations, skin warm/dry/pink. 03:13 GI: Bowel sounds present in right lower quadrant. rg5 Vital Signs: 07/06 22:01 BP 100 / 69; Pulse 109; Resp 16; Temp 98(O); Pulse Ox 100% ; Weight 72.57 kg; Height 5 dd2 ft. 2 in. ; Pain 9/10; 23:48 BP 121 / 66; Pulse 88; Resp 22; Pulse Ox 97% on R/A; jb4 07/07 01:00 BP 124 / 95; Pulse 98; Resp 16; Pulse Ox 99% on R/A; jb4 02:20 BP 118 / 77; Pulse 91; Resp 20; Pulse Ox 98% on R/A; jb4 07/06 22:01 Body Mass Index 29.26 (72.57 kg, 157.48 cm) dd2 07/06 22:01 Pain Scale: Adult dd2 ED Course: 07/06 21:46 Patient arrived in ED. mr 21:50 Frankie Bueno PA is PHCP. cp 21:50 Giovanni Ocampo MD is Attending Physician. cp 22:04 Triage completed. dd2 22:04 Arm band placed on left wrist. dd2 22:46 Inserted Missed attempt(s): 20 gauge Bleeding controlled, band aid applied, catheter rk3 tip intact. 22:58 XRAY Chest (1 view) In Process Unspecified. EDMS 23:06 LFT's Sent. jb4 23:06 CBC with Diff Sent. jb4 23:06 Basic Metabolic Panel Sent. jb4 23:06 Magnesium Sent. jb4 23:06 Troponin HS Sent. jb4 23:06 PT-INR Sent. jb4 23:48 Raj De La O, RN is Primary Nurse. jb4 07/07 01:01 CT Abd/Pelvis - PO and IV Contrast In Process Unspecified. EDMS 01:03 Patient has correct armband on for positive identification. Bed in low position. Call jb4 light in reach. Side rails up X 1. Provided Education on: plan of care. 02:17 Sheryl Cameron MD is Hospitalizing Provider. cp 02:19 Missed attempt(s): 24 gauge Bleeding controlled, band aid applied, catheter tip intact. oe 03:12 Patient admitted, IV remains in place. intact, No redness/swelling at site. rg5 03:12 No provider procedures requiring assistance completed. rg5 Administered Medications: 07/06 23:05 Drug: Famotidine IVP 20 mg IVP once; dilute with 10 mL 0.9% NaCl; give over 2 minutes jb4 Route: IVP; Site: right antecubital; 07/07 00:00 Follow up: Response: No adverse reaction; Marked relief of symptoms [facility] 07/06 23:05 Drug: diphenhydrAMINE IVP 12.5 mg IVP once Route: IVP; Site: right antecubital; 4 07/07 00:00 Follow up: Response: No adverse reaction; Marked relief of symptoms [facility] 07/06 23:05 Drug: fentaNYL (PF) IVP 25 mcg IVP once Route: IVP; Site: right antecubital; jb4 07/07 00:00 Follow up: Response: No adverse reaction; Marked relief of symptoms [facility] 07/06 23:06 Drug: NS 0.9% IV 1000 ml IV at 1 bolus Per protocol; to be given as a bolus over 60 jb4 minutes Route: IV; Rate: 1 bolus; Site: right antecubital; 23:06 Drug: metoCLOPramide IVP 10 mg IVP once; over 1 to 2 minutes Route: IVP; Site: right jb4 antecubital; 07/07 00:00 Follow up: Response: No adverse reaction; Marked relief of symptoms jb4 02:38 Drug: metroNIDAZOLE IVPB 500 mg 100 ml IVPB once over 30 mins Volume: 100 ml; Route: jb4 IVPB; Infused Over: 30 mins; Site: left wrist; 03:07 Follow up: Response: No adverse reaction; IV Status: Completed infusion rg5 03:07 Drug: Ciprofloxacin IVPB 400 mg 200 ml IVPB once over 60 mins Volume: 200 ml; Route: rg5 IVPB; Infused Over: 60 mins; Site: right hand; Medication: 03:13 VIS not applicable for this client. rg5 Outcome: 02:18 Decision to Hospitalize by Provider. cp 03:13 Admitted to ER Hold. Please see [facility] for further documentation. rg5 03:13 Condition: stable 03:13 Instructed on the need for admit, 16:34 Patient left the ED. ld1 Signatures: Dispatcher [employer] EDMS TrejoIzzy yeager, Reg Reg mr Frankie Bueno PA PA cp Raj De La O, RN RN jb4 Jerry Asif Lauren, RN RN ld1 Luther Lovell RN RN rg5 STEVEN JACINTO RN RN dd2 Eitan Lindsay rk3
--- NOTE | 2024-07-07 02:19 | EDPHYS ---
Physician Documentation [facility] Name: Heather Martinez Age: 63 yrs Sex: Female : 1960 Arrival Date: 07/06/2024 Time: 21:44 Bed 19 Private MD: ED Physician Giovanni Ocampo HPI: 07/06 22:30 This 63 yrs old Female presents to ER via Ambulatory with complaints of cp Abdominal Pain, Back Pain, Vomiting. 22:30 The patient presents with abdominal pain in the epigastric area, in the upper abdomen. cp Onset: The symptoms/episode began/occurred this morning. Associated signs and symptoms: Pertinent positives: nausea and vomiting, radiating pain to back. Historical: - Allergies: 22:04 PENICILLINS; dd2 - PMHx: 22:04 Anemia; Anxiety; Diabetes - IDDM; GERD; Hypertension; dd2 - PSHx: 22:04 Appendectomy; Cholecystectomy; HYSTERECTOMY; GASTRIC SLEEVE; LT KNEE SX; dd2 - Immunization history:: Adult Immunizations up to date. - Infectious Disease History:: Denies. - Social history:: Smoking status: Patient denies any tobacco usage or history of. ROS: 22:33 Constitutional: Negative for body aches, chills, fever, cp 22:33 Cardiovascular: Negative for chest pain, cp 22:33 Respiratory: Negative for cough, shortness of breath, wheezing, 22:33 Abdomen/GI: Positive for abdominal pain, nausea and vomiting, Negative for diarrhea, hematemesis, 22:33 Eyes: Negative for injury, pain, redness, and discharge, cp 22:33 ENT: Negative for drainage from ear(s), ear pain, difficulty swallowing, difficulty handling secretions, 22:33 Back: Positive for radiated pain, 22:33 Neuro: Negative for altered mental status, dizziness, headache, syncope, weakness, 22:33 All other systems are negative, cp Exam: 22:35 Constitutional: The patient appears in no acute distress, alert, awake, cp non-diaphoretic, non-toxic, well developed, well nourished, uncomfortable, 22:35 Head/Face: Normocephalic, atraumatic. cp 22:35 Eyes: Periorbital structures: appear normal, Conjunctiva: normal, no exudate, no cp injection, Sclera: no appreciated abnormality, Lids and lashes: appear normal, bilaterally, 22:35 ENT: External ear(s): are unremarkable, Nose: is normal, Mouth: Lips: moist, Oral mucosa: moist, Posterior pharynx: Airway: no evidence of obstruction, patent, 22:35 Chest/axilla: Inspection: normal, 22:35 Cardiovascular: Rate: tachycardic, Rhythm: regular, Edema: is not appreciated, JVD: is not appreciated, 22:35 Respiratory: the patient does not display signs of respiratory distress, Respirations: normal, no use of accessory muscles, no retractions, labored breathing, is not present, Breath sounds: are clear throughout, no decreased breath sounds, no stridor, no wheezing, 22:35 Abdomen/GI: Inspection: scar(s), Bowel sounds: active, all quadrants, Palpation: soft, in all quadrants, severe abdominal tenderness, in the epigastric area, rebound tenderness, is not appreciated, voluntary guarding, is elicited in the epigastric area, 22:35 Back: pain, that is moderate, of the mid back area, 22:35 Skin: no rash present. 22:35 Neuro: Orientation: to person, place \T\ time. Mentation: is normal, Motor: moves all fours, strength is normal, Sensation: is normal, 23:03 ECG was reviewed by the Attending Physician. cp Vital Signs: 22:01 BP 100 / 69; Pulse 109; Resp 16; Temp 98(O); Pulse Ox 100% ; Weight 72.57 kg; Height 5 dd2 ft. 2 in. ; Pain 9/10; 23:48 BP 121 / 66; Pulse 88; Resp 22; Pulse Ox 97% on R/A; jb4 07/07 01:00 BP 124 / 95; Pulse 98; Resp 16; Pulse Ox 99% on R/A; jb4 02:20 BP 118 / 77; Pulse 91; Resp 20; Pulse Ox 98% on R/A; jb4 07/06 22:01 Body Mass Index 29.26 (72.57 kg, 157.48 cm) dd2 07/06 22:01 Pain Scale: Adult dd2 MDM: 07/06 22:14 Medical Screening Exam initiated cp 23:00 Differential diagnosis: AAA, acute coronary syndrome, bowel obstruction, gastritis, cp non-specific abd pain, pancreatitis, Peptic Ulcer Disease, Perf. Duodenal Ulcer, Perf. Gastric Ulcer, Pyelonephritis, Ureterolithiasis, urinary tract infection. 07/07 02:15 Management of patient was discussed with the following: Hospitalist: will admit after discussion. Demand Generation Manager: Dr Brennan who will consult after discussion. Patient reports DR Brennan has performed exploratory lap in the past. 02:20 Data reviewed: vital signs, nurses notes, lab test result(s), EKG, radiologic studies, cp CT scan, plain films, and as a result, I will admit patient. 02:20 I considered the following discharge prescriptions or medication management in the emergency department Medications were administered in the Emergency Department. See MAR. Independent interpretation of the following test(s) in the Emergency Department EKG: See my EKG interpretation above. Care significantly affected by the following chronic conditions: Diabetes, Hypertension. Counseling: I had a detailed discussion with the patient and/or guardian regarding the historical points, exam findings, and any diagnostic results supporting the discharge/admit diagnosis, lab results, radiology results, the need for further work-up and treatment in the hospital. Response to treatment: the patient's symptoms have markedly improved after treatment. 07/06 22:27 Order name: Basic Metabolic Panel; Complete Time: 00:03 cp 07/07 01:39 Interpretation: Normal except: GLUC 141; GFR 84. cp 07/06 22:27 Order name: CBC with Diff; Complete Time: 01:38 cp 07/06 23:49 Interpretation: Normal except: RBC 5.50; HGB 15.4; COURTNEY% 76.8. 07/06 22:27 Order name: LFT's; Complete Time: 00:03 cp 07/07 01:39 Interpretation: Normal except: GLOB 3.7. cp 07/06 22:27 Order name: Magnesium; Complete Time: 00:03 cp 07/06 22:27 Order name: PT-INR; Complete Time: 23:49 cp 07/06 22:27 Order name: Troponin HS; Complete Time: 00:03 cp 07/06 22:27 Order name: Lipase; Complete Time: 00:04 cp 07/06 23:39 Order name: Manual Differential; Complete Time: 01:38 EDMS 07/07 01:39 Interpretation: Normal except: BANDS [F] 2; LYM 10. cp 07/07 02:19 Order name: UA Rfx Fortino Cult if indicated cp 07/07 03:13 Order name: CBC with Automated Diff EDMO 07/07 03:13 Order name: CBC with Automated Diff EDMS 07/07 03:13 Order name: Comprehensive Metabolic Panel EDMO 07/07 03:13 Order name: Comprehensive Metabolic Panel EDMO 07/07 07:52 Order name: Glucose, Ancillary Testing EDMO 07/07 13:32 Order name: Glucose, Ancillary Testing EDMO 07/06 22:27 Order name: XRAY Chest (1 view) 07/06 22:28 Order name: CT Abd/Pelvis - PO and IV Contrast 07/07 03:20 Order name: Dr Mika Consult EDMO 07/06 22:27 Order name: Cardiac monitoring; Complete Time: 23:06 07/06 22:27 Order name: EKG - Nurse/Tech; Complete Time: 23:06 07/06 22:27 Order name: IV Saline Lock; Complete Time: 23:06 07/06 22:27 Order name: Labs collected and sent; Complete Time: 23:06 07/06 22:27 Order name: O2 Per Protocol; Complete Time: 23:06 07/06 22:27 Order name: O2 Sat Monitoring; Complete Time: 23:06 07/07 02:19 Order name: NPO; Complete Time: 02:21 cp EC/11 23:03 Rate is 99 beats/min. Rhythm is regular. OR interval is normal. QRS interval is cp prolonged at 118 msec. QT interval is normal. T waves are Inverted in leads aVL, aVR. Interpreted by me. Reviewed by me. Administered Medications: 23:05 Drug: Famotidine IVP 20 mg IVP once; dilute with 10 mL 0.9% NaCl; give over 2 minutes jb4 Route: IVP; Site: right antecubital; 07/07 00:00 Follow up: Response: No adverse reaction; Marked relief of symptoms [facility] 07/06 23:05 Drug: diphenhydrAMINE IVP 12.5 mg IVP once Route: IVP; Site: right antecubital; 4 07/07 00:00 Follow up: Response: No adverse reaction; Marked relief of symptoms [facility] 07/06 23:05 Drug: fentaNYL (PF) IVP 25 mcg IVP once Route: IVP; Site: right antecubital; 4 07/07 00:00 Follow up: Response: No adverse reaction; Marked relief of symptoms jb4 07/06 23:06 Drug: NS 0.9% IV 1000 ml IV at 1 bolus Per protocol; to be given as a bolus over 60 jb4 minutes Route: IV; Rate: 1 bolus; Site: right antecubital; 23:06 Drug: metoCLOPramide IVP 10 mg IVP once; over 1 to 2 minutes Route: IVP; Site: right jb4 antecubital; 07/07 00:00 Follow up: Response: No adverse reaction; Marked relief of symptoms jb4 02:38 Drug: metroNIDAZOLE IVPB 500 mg 100 ml IVPB once over 30 mins Volume: 100 ml; Route: jb4 IVPB; Infused Over: 30 mins; Site: left wrist; 03:07 Follow up: Response: No adverse reaction; IV Status: Completed infusion rg5 03:07 Drug: Ciprofloxacin IVPB 400 mg 200 ml IVPB once over 60 mins Volume: 200 ml; Route: rg5 IVPB; Infused Over: 60 mins; Site: right hand; Disposition Summary: 07/07/24 02:18 Hospitalization Ordered Notes: Hospitalization Status: Inpatient Admission cp Provider: Sheryl Cameron cp Condition: Stable cp Problem: new cp Symptoms: have improved cp Bed/Room Type: Standard cp Location: Telemetry/MedSur (Inpatient)(07/07/24 15:23) [facility] Room Assignment: [facility](07/07/24 15:23) [facility] Diagnosis - Ileus, unspecified cp - Nausea with vomiting, unspecified cp - Epigastric pain cp Forms: - Medication Reconciliation Form cp - SBAR form cp - Leadership Thank You Letter cp Addendum: 07/08/2024 19:54 Co-signature as Attending Physician, Giovanni Ocampo MD I agree with the assessment s p4 and plan of care. I reviewed the patient's care provided by the Advanced Practice Provider and agree with the diagnosis and treatment plan. Signatures: Dispatcher [employer] EDFrankie Rosenbaum PA PA cp Garcia, Cindy, RN RN Raj De La O RN RN jb4 Elena Daly [facility] Giovanni Ocampo MD MD sp4 Luther Lovell RN RN rg5 OPHELIA, STEVEN, RN RN dd2 Corrections: (The following items were deleted from the chart) 07/06 22: 22:27 BASIC METABOLIC PANEL+C.LAB.BRZ ordered. EDMS EDMS 22: 22:27 CBC+H.LAB.BRZ ordered. EDMS EDMS 22: 22:27 HEPATIC FUNCTION+C.LAB.BRZ ordered. EDMS EDMS 22: 22:27 MAGNESIUM+C.LAB.BRZ ordered. EDMS EDMS 22: 22:27 PROTIME (+INR)+COAG.LAB.BRZ ordered. EDMS EDMS 22: 22:27 Troponin High Sensitivity+C.LAB.BRZ ordered. EDMS EDMS 22: 22:27 LIPASE+C.LAB.BRZ ordered. EDMS EDMS 22: 22:27 Chest Single View+RAD.RAD.BRZ ordered. EDMS EDMS 07/07 03:28 02:18 Telemetry/MedSurg (Inpatient) cp cg 03:28 02:18 cp cg 15:23 03:28 [facility] [[email or web address]] ER HOLD cg bc6 15:23 03:28 ERHOLD- cg bc6
[2024-07-07] MEDS ORDERED: CIPROFLOXACIN 400mg IV 400 MG/200 ML BAG IV ONE ×2 (02:32→13:28)
[2024-07-07] MEDS ORDERED: METRONIDAZOLE 500mg IVPB 500 MG/100 ML BAG IV ONE ×3 (02:32→13:28)
--- NOTE | 2024-07-07 02:43 | RAD REPORT ---
CLINICAL HISTORY: Epigastric pain. COMPARISON: CT Abdomen 08/01/2022. TECHNIQUE: CT ABDOMEN PELVIS WITH IV CONTRAST on 07/06/2024 10:28 PM CDT This exam was performed according to our departmental dose-optimization program, which includes autom ated exposure control, adjustment of the mA and/or kV according to patient size and/or use of iterative reconstruction technique. FINDINGS: Lower lungs are clear. Abdomen: The liver is normal in appearance. There is no biliary dilatation. There are postoperative c hanges of the greater curvature of the stomach. Cholecystectomy was performed. The pancreas and spleen are normal in appearance. The adrenal glands and kidneys are unremarkable. Abdominal aorta is normal in course and caliber without aneurysm. There is no free air. There is no r etroperitoneal adenopathy. Pelvis: There is moderate sigmoid colonic diverticulosis. There is mild prominence of multiple small bowel loops in the left upper quadrant. Urinary bladder is unremarkable. There is a small amount of free pelvic fluid. Hysterectomy was performed. Appendix is not clearly seen. Skeleton: There are no acute osseous findings. No suspicious bony lesions. IMPRESSION: Possible mild small bowel ileus in the left upper quadrant. Electronically signed by: Lowell Fam MD 07/07/2024 01:28 AM CDT RP Due to temporary technical issues with the PACS/[facility] reporting system, reports are being marshal d by the in-house radiologist without review as a courtesy to ensure prompt reporting the interpreting radiologist is fully responsible for the content of the report. Transcribed Date/Time: 07/07/2024 2:43 AM
[2024-07-07 03:04] LABS: Specific Gravity 1.026 (1.005-1.030); Sqamous Epithelial <5 /HPF (None Seen); Urine Bacteria >50 /HPF (<20); Urine Bilirubin NEGATIVE (Negative); Urine Blood Negative (Negative); Urine Clarity Extremely Turbid (Clear); Urine Color Yellow (Yellow); Urine Culture Reflex Order REFLEXED; Urine Glucose NEGATIVE (Negative); Urine Ketones 1+ (Negative); Urine Microscopic Reflex YN ORDER UMIC; Urine Mucus 1+ /HPF (None Seen); Urine Nitrite NEGATIVE (Negative); Urine Protein TRACE (Negative); Urine RBC <5 /HPF (None Seen); Urine Urobilinogen 1+ (Normal)
[2024-07-07] MEDS ORDERED: DIPHENHYDRAMINE 50 MG/ML VIAL IV PRN (03:15)
--- NOTE | 2024-07-07 03:49 | P.HP ---
Certification for Inpatient Patient admitted to: Inpatient With expected LOS: >2 Midnights Patient will require the following post-hospital care: None Practitioner: I am a practitioner with admitting privileges, knowledge of patient current condition, hospital course, and medical plan of care. Services: Services provided to patient in accordance with Admission requirements found in Title 42 Section 412.3 of the Code of Federal Regulations Patient History Date of Service: 07/07/24 Reason for admission: Acute abdominal pain, small bowel ileus. History of Present Illness: Patient is a pleasant 63-year-old female with past medical history of anemia, anxiety, pneumonia, diabetes type 2, GERD, essential hypertension, mood disorder, who reports to the ER today complaining of worsening abdominal pain. Patient states her abdominal pain started a day before arrival to the ER approximately 3:05 AM, she states she had multiple episodes of vomiting green, and yellow content, nonbloody content, with no associated chest pain, or shortness of breath. She states around 8 AM, she again had multiple episodes of vomiting. Patient states her abdominal pain progressively worsening which then prompted her to report to the ER today. She describes her abdominal pain as diffused not radiating, states the pain is throbbing and aching, and constant, with initial pain scale prior to arrival to ER of 10/10, and after receiving some medications in the ER mostly Reglan and Benadryl IV she describes her pain as much better down to 3/10. On admission assessment, patient with no vomiting or nausea noted at this time, bowel sounds hypoactive but present on all 4 quadrants. According to report received from the ER practitioner, he states he called and consulted Dr. Brennan who has previously seen patient before, spoke to him, and instructed to start patient on metronidazole, and Cipro IV, and to keep patient n.p.o. for now. Allergies Penicillins Adverse Reaction (Verified 12/10/18 13:27) Hives Home medications list reviewed: No Home Medications: Escitalopram [Lexapro*] 20 mg PO DAILY 09/12/18 Etodolac [Lodine Xl] 500 mg PO BID 09/12/18 Liraglutide [Victoza 2-Hubert] 1.8 mg SQ DAILY 09/12/18 Mirabegron [Myrbetriq] 50 mg PO DAILY 09/12/18 lisinopriL [Lisinopril] 10 mg PO [id number] 09/12/18 - Past Medical/Surgical History Diabetic: Yes -: bronchitis -: pneumonia -: HTN -: NIDDM -: preeclampsia -: GERD -: Anxiety -: tonsillectomy -: cholecystectomy -: -: tubal ligation -: partial hysterectomy -: TVT sling -: lap band -: Exploratory laparotomy, ESTHER - Family History Father -: Lung disease Mother Notes: none - Social History Smoking Status: Never smoker Alcohol use: No CD- Drugs: No Caffeine use: Yes Place of Residence: Home Review of Systems 10-point ROS is otherwise unremarkable Gastrointestinal: Nausea, Vomiting, Abdominal Pain Physical Examination - Physical Exam General: Alert, Oriented x3, Cooperative HEENT: Atraumatic, Normocephalic, PERRLA, Mucous membr. moist/pink, Sclerae nonicteric Neck: Supple, No LAD, Without JVD or thyroid abnormality Respiratory: Clear to auscultation bilaterally, Normal air movement Cardiovascular: Normal pulses, Normal S1 S2, No gallops, No rubs, No murmurs Capillary refill: <2 Seconds Gastrointestinal: Hypoactive, Tenderness, Guarding Musculoskeletal: No clubbing, No swelling, No erythema, No tenderness, No warmth Integumentary: No rashes, No breakdown, No erythema, No warmth, No cyanosis Neurological: Normal gait, Normal speech, Normal strength at 5/5 x4 extr, Cranial nerves 3-12 intact, Normal reflexes 2+, Normal affect Lymphatics: No axilla or inguinal lymphadenopathy - Studies Laboratory Data (last 24 hrs) 07/06/24 07/06/24 07/06/24 23:00 23:00 23:00 WBC 9.80 Hgb 15.4 H Hct 45.0 Plt Count 277 PT 10.9 INR 0.95 Sodium 137 Potassium 3.6 BUN 8 Creatinine 0.80 Glucose 141 H Magnesium 2.1 Total Bilirubin 0.7 AST 17 ALT 17 Alkaline Phosphatase 78 Lipase 37 Female Exam - Female Pelvic Cervix: No discharge Assessment and Plan - Plan Patient is a pleasant 63-year-old female who presents to the ER complaining of worsening diffuse abdominal pain, associated with nausea and vomiting, with no associated chest pain or shortness of breath. Patient has CT of the abdomen and pelvis, with impression-possible mild small bowel ileus in the left upper quadrant. Patient has a left shift of 76.8. Dr. Brennan consulted by ER practitioner, was informed and states he will see in the in the morning. (1)Acute small bowel ileus. Impression of CT of the abdomen and pelvis- mild small bowel ileus in the left upper quadrant. On admission assessment, patient complains of diffuse abdominal pain with tenderness on palpation. -Cipro 40 mg IV twice daily. -Metronidazole 500 mg IV every 6 hours. Both antibiotics recommended by Dr. Brennan. -N.p.o. at this time. -Reglan 10 mg IV every 6 hours. Patient states she felt much better after she was given Reglan in ER. -Benadryl 12.5 mg IV every 6 hours as needed. Patient also expressed relieved after receiving Benadryl IV in ER as well. -IV D5 1/2 NS at 100ml/ hr. -SCD at this time in case patient might need further intervention by surgeon. -Morphine IV 4 mg as needed every 4 hours. (2)Chronic type 2 diabetes mellitus. - Low sliding scale at this time. -Order A1c to evaluate patient current diabetic status. (3)Explained the entire treatment plan to the patient, solicit questions a nswered and voiced understanding. Discharge Plan: Home Plan to discharge in: 72 Hours - Advance Directives Does patient have a Living Will: No Does patient have a Durable POA for Healthcare: No - Code Status/Comfort Care Code Status Assessed: Yes Code Status: Full Code
[2024-07-07 03:56] VITALS: BMI 29.2
[2024-07-07] MEDS ORDERED: D5 0.45 NS 1,000 ML IV ONE (05:26)
[2024-07-07] MEDS: D5 0.45 NS 1,000 ML IV SCH (05:31)
--- NOTE | 2024-07-07 05:47 | RAD REPORT ---
EXAM DESCRIPTION: Chest Single View CLINICAL HISTORY: vomiting COMPARISON: None FINDINGS: Cardiac silhouette is within normal limits. There is no focal parenchymal or pleural disease. There i s no acute osseous process visualized. IMPRESSION: No evidence of acute cardiopulmonary disease. Electronically signed by: Mark Martinez MD 07/06/2024 11:13 PM CDT RP Due to temporary technical issues with the [employer] reporting system, reports are being marshal d by the in-house radiologist without review as a courtesy to ensure prompt reporting the interpreting radiologist is fully responsible for the content of the report. Transcribed Date/Time: 07/07/2024 5:46 AM
[2024-07-07] MEDS: METOCLOPRAMIDE 10 MG/2mL INJ IV PRN (07:30)
[2024-07-07] MEDS: INSULIN REGULAR (HUMAN) 100 UNIT/ML SQ SCH (07:30)
[2024-07-07] MEDS: METRONIDAZOLE 500mg IVPB 500 MG/100 ML BAG IV SCH (08:00)
[2024-07-07] MEDS ORDERED: ONDANSETRON 4 MG/2 ML VIAL ONE ×2 (08:06→13:28)
[2024-07-07] MEDS ORDERED: METOCLOPRAMIDE 10 MG/2mL INJ ONE (08:06)
[2024-07-07] MEDS: ONDANSETRON 4 MG/2 ML VIAL IV PRN (08:23)
--- NOTE | 2024-07-07 11:57 | EKG ---
Test Date: 2024-07-06 Test Time: 22:56:23 [employer] Machine Tender: SHELIA MEASUREMENT RESULTS: Intervals: Rate: 99 CT: 176 QRSD: 118 QT: 382 QTc: 490 [place]: P: 87 CT: 176 QRS: -73 T: 83 INTERPRETIVE STATEMENTS: Normal sinus rhythm Pulmonary disease pattern Left anterior fascicular block Prolonged QT Abnormal ECG No previous ECG available for comparison Electronically Signed On 07-07-24 11:56:10 CDT by Max Mazariegos
[2024-07-07] MEDS ORDERED: MORPHINE 4 MG/ML SYR ONE (13:28)
[2024-07-07] MEDS: CIPROFLOXACIN 400mg IV 400 MG/200 ML BAG IV SCH (13:46)
[2024-07-07] MEDS: MORPHINE 4 MG/ML SYR IV PRN (13:48)
--- NOTE | 2024-07-07 15:41 | CON ---
Date of Consultation: 07/07/2024 Diagnosis: Small bowel obstruction. History Of Present Illness: This is a 63-year-old patient with multiple medical problems, history al so of multiple abdominal surgeries and adhesions, who comes to us with abdominal pain, nausea, and vo miting after eating salad yesterday. She was in a conference talking. Then this pain developed. Sh abdiaziz is not new to a bowel problem. She had history of multiple surgeries including hysterectomy in 201 . During that hysterectomy, I noted Dr. Stern mentioned about the extensive intraabdominal adhes ions. She denies any dysuria, hematuria, hematochezia, or melena. Denies any recent traveling out o f the country. Denies any family member sick at home. She had a colonoscopy in less than 5 years, s he does not remember exactly when. She was advised to follow up with GI doctor. Allergies: TO PENICILLIN. Medications: Lexapro, Victoza, lisinopril. Past Medical History: Reviewed including bronchitis, pneumonia, hypertension, plw-fkfwcia-alffiomtn diabetes, preeclampsia, GERD, and anxiety. Past Surgical History: Include tonsillectomy, cholecystectomy, , tubal ligation, partial hy sterectomy, bladder sling, lap band, multiple laparotomies. Family History: Includes lung disease. Social History: She does not smoke. She does not drink alcohol. Review of Systems: As above. Ten points otherwise unremarkable. No dysuria, hematuria, hematochezia, or melena. 10 po ints otherwise unremarkable. Physical Examination: Vital Signs: Reviewed. General: Patient is awake and alert. HEENT: Pupils are equal and reactive. Anicteric. Neck: Supple. Chest: Clear. Heart: S1, S2. Abdomen: Softly distended. Mild generalized tenderness. No guarding or rebound. Extremities: Good capillary refill. Rectal: Deferred. Pelvic: Deferred. Breasts: Deferred. Imaging: CAT scan of the abdomen and pelvis interpreted by Dr. Schroeder as moderate sigmoid diverticulo sis. Prominence of multiple small bowel loops in the left upper quadrant, cannot rule out ileus vers us SBO. Laboratory Data: Blood work: WBC count of 9.8, hemoglobin of 15.4, INR 0.95. Potassium 3.6, total bilirubin of 0.7. Assessment: 63-year-old patient who came to us with nausea and vomiting. Feels better today. Abdom en is softer. She is passing gas and we will try clear liquid diet. If she vomit, obviously we will stop. She is hungry and she wants to eat. We explained to her the differential diagnosis of her fi ndings on the CAT scan that cannot rule out an obstruction, especially when she had extensive intraab dominal surgeries in the past. If we see that she does not improve clinically then small bowel serie s could be a consideration either here if she does not improve or as an outpatient if she improves an d goes home. No peritonitis at this moment. ELIUD/MODL Voice ID: [id number] Report ID: [id number]
[2024-07-07] MEDS: PANTOPRAZOLE 40MG TABLET PO SCH (20:58)
[2024-07-08 06:34] LABS: Absolute Basophils 0.1 K/uL (0-0.5); Absolute Eosinophils 0.2 K/uL (0-0.5); Absolute Lymphocytes (CBC) 1.7 K/uL (0.7-4.9); Absolute Monocytes 0.5 K/uL (0.1-1.3); Absolute Neutrophil 2.9 K/uL (1.8-8.0); Basophils % 1.2 % (0-1.3); Eosinophils % 4.5 % (0-4.4); Hemoglobin 12.6 g/dL (12.0-15.0); Lymphocytes % 31.6 % (15.3-44.8); MCH 28.4 pg (27.0-35.0); MCHC 34.1 g/dL (32.0-36.0); MCV 83.3 fL (80-100); MPV 8.6 fL (7.6-11.3); Monocytes % 9.3 % (3.3-12.3); Neutrophils % 53.4 % (41.7-73.7); Platelets 190 thou/uL (152-406); RBC Red Blood Cell Count 4.44 M/uL (3.86-4.86); Red Cell Distribution Width 15.1 % (12.1-15.2)
[2024-07-08 07:02] LABS: AST/SGOT 14 U/L (15-37); Albumin 3.2 g/dL (3.4-5.0); Albumin/Globulin Ratio 1.1 (1.1-1.8); Alkaline Phosphatase 57 U/L (45-117); Anion Gap 7.4 mEq/L (5.0-15.0); BUN Blood Urea Nitrogen 5 mg/dL (7-18); Bicarbonate 28 mEq/L (21-32); Bilirubin Total 0.4 mg/dL (0.2-1.0); Globulin 2.8 g/dL (2.3-3.5); Glomerular Filtration Rate 100 ml/min (=/>90); Glucose Level 93 mg/dL (74-106); Potassium 4.4 mEq/L (3.5-5.1); Sodium Level 141 mEq/L (136-145)
[2024-07-08 07:03] LABS: ALT/SGPT < 14 U/L (13-56)
[2024-07-08 08:02] VITALS: O2SAT 96
[2024-07-08 12:06] VITALS: BP 91/63; TEMP 98.2
--- NOTE | 2024-07-08 16:21 | PN ---
Date of Progress Note: 07/08/2024 Subjective: This is a followup. The patient is doing well. No complaint. No nausea, vomiting. No fever. Had a bowel movement. Passing flatus. No nausea, vomiting. Last night, she tried some reg ular diet. Today, she is feeling great. No abdominal pain. Objective: Chest: Clear. Abdomen: Soft and depressible. No guarding or rebound. No peritoneal signs. No tenderness. Nondi stended. Extremities: Good capillary refill. Plan: Two different ways. If she wants to go home, she wants to eat, in that case we explained to t he primary we will do the small bowel series as an outpatient trying to do best to get a little bit m ore and diminish the chance of this happening in the future. If she wants to continue clinical evalu ation instead of any other x-rays, she will come back to my office. I gave her my office phone iram cervantes. She was advised once again GI study. We spent about half an hour discussing different ways and d iet to diminish the chance of bowel obstructions. ELIUD/TO Voice ID: [id number] Report ID: [id number]
== END 2024-07-08 12:27 | disposition home or self-care (01) | DRG 390 ==
LOC: ER 21:44 → ERHOLD 07-07 03:02 → 4TH 07-07 15:35
PROVIDERS: ADMIT Hospitalist; ATTEND Hospitalist
DX: K56.7 Ileus, unspecified (principal); I10 Essential (primary) hypertension; E11.9 Type 2 diabetes mellitus without complications; K21.9 Gastro-esophageal reflux disease without esophagitis; Z88.0 Allergy status to penicillin; Z98.84 Bariatric surgery status; Z90.49 Acquired absence of other specified parts of digestive tract; Z90.710 Acquired absence of both cervix and uterus; Z79.899 Other long term (current) drug therapy
CPT/HCPCS: 36415; 71045; 74177; 80048; 80053; 80076; 81001; 82947; 83690; 83735; 84484; 85025; 85610; 87077; 87086; 87088; 87186; 93005; 99285; J0744; J1200; J2405; J2765; J3010; J7030; J7799; Q9967